=== PATIENT | male | born 1960 | race Caucasian/White ===

== ENCOUNTER 2016-06-12 18:31 | Inpatient (IN) | payer MEDICARE, BC ==
[2016-06-12] MEDS ORDERED: RX INFO: IV CONTRAST WAS GIVEN 1 EACH MISC MISCELLANE PRN (19:27)
--- NOTE | 2016-06-12 19:31 | ED ---
General Adult HPI - General Chief complaint: Dizziness Stated complaint: DIZZINESS Time Seen by Provider: 06/12/16 19:00 Source: patient, family, RN notes reviewed Mode of arrival: wheelchair Limitations: no limitations - History of Present Illness Initial comments: Patient is a pleasant 55-year-old male presenting to the emergency Department with vertigo. Patient has had vertigo for a while. Symptoms have not been bad up until the past couple weeks and have been severe. Symptoms have been intermittent. Sudden onset. Patient took 50 mg of meclizine prior to arrival and is now near symptom-free. Patient does have associated nausea. Patient had 2 severe episodes today. There is question of patient turned blue during 1 of him. There is also question of patient passed out. Family was told by a bystander that he passed out however patient does not believe that he did. Patient denies any chest pain or dyspnea. Patient did have some dyspnea with lying down at night only several weeks ago however this has now resolved. No confusion or weakness. No headaches. No visual changes. - Related Data Home Medications Medication Instructions Recorded Confirmed Aspirin EC [Ecotrin Low Dose] 81 mg PO DAILY 06/12/16 06/12/16 Lisinopril 40 mg PO DAILY 06/12/16 06/12/16 Lovastatin [Mevacor] 40 mg PO DAILY 06/12/16 06/12/16 Meclizine [Antivert] 25 mg PO TID 06/12/16 06/12/16 Multivitamins, Thera [Multivitamin] 1 tab PO DAILY 06/12/16 06/12/16 Naproxen [Naprosyn] 375 mg PO Q12HR 06/12/16 06/12/16 PARoxetine HCL [Paxil] 40 mg PO DAILY 06/12/16 06/12/16 Pantoprazole Sodium [Protonix] 40 mg PO DAILY 06/12/16 06/12/16 metFORMIN HCL [Glucophage] 500 mg PO BID 06/12/16 06/12/16 Allergies Allergy/AdvReac Type Severity Reaction Status Date / Time Sulfa (Sulfonamide Allergy Rash/Hives Verified 06/12/16 19:19 Antibiotics) Review of Systems ROS Statement: Those systems with pertinent positive or pertinent negative responses have been documented in the HPI. ROS Other: All systems not noted in ROS Statement are negative. Constitutional: Denies: fever Eyes: Denies: eye pain ENT: Denies: ear pain Respiratory: Denies: cough Cardiovascular: Denies: chest pain Endocrine: Denies: fatigue Gastrointestinal: Reports: nausea Genitourinary: Denies: dysuria Musculoskeletal: Denies: back pain Skin: Denies: rash Neurological: Reports: vertigo. Denies: headache, weakness, confusion Past Medical History Past Medical History: Diabetes Mellitus, GERD/Reflux, Hyperlipidemia, Hypertension History of Any Multi-Drug Resistant Organisms: None Reported Past Surgical History: Appendectomy Additional Past Surgical History / Comment(s): Vein stripping right leg Past Psychological History: No Psychological Hx Reported Smoking Status: Former smoker Past Alcohol Use History: None Reported Past Drug Use History: None Reported General Exam Limitations: no limitations General appearance: alert, in no apparent distress Head exam: Present: atraumatic Eye exam: Present: normal appearance, PERRL, EOMI. Absent: nystagmus ENT exam: Present: normal oropharynx Neck exam: Present: normal inspection Respiratory exam: Present: normal lung sounds bilaterally Cardiovascular Exam: Present: regular rate, normal rhythm Expanded Peripheral pulses: 2+: Radial (R), Radial (L), Dorsalis Pedis (R), Dorsalis Pedis (L) GI/Abdominal exam: Present: soft. Absent: tenderness Extremities exam: Present: normal inspection. Absent: pedal edema, calf tenderness Neurological exam: Present: alert, oriented X3, CN II-XII intact. Absent: motor sensory deficit Expanded Speech: Present: fluid speech Cranial nerves: EOM's Intact: Normal, Facial Sensation: Normal Cerebellar function: Finger to Nose: Normal Sensory exam: Upper Extremity Light Touch: Normal, Lower Extremity Light Touch: Normal Motor strength exam: RUE: 5, LUE: 5, RLE: 5, LLE: 5 Eye Response: (4) open spontaneously Motor Response: (6) obeys commands Verbal Response: (5) oriented Psychiatric exam: Present: normal affect, normal mood Skin exam: Absent: rash Course Vital Signs 06/12/16 18:37 Temperature 98.0 F Pulse Rate 60 Respiratory 18 Rate Blood Pressure 138/90 O2 Sat by Pulse 95 Oximetry EKG Findings - EKG Comments: EKG Findings:: Sinus bradycardia at 55. Normal intervals. Normal axis. Inferior Q waves. No acute ST change. Medical Decision Making - Medical Decision Making Patient reexamined and resting comfortably in bed. Patient is starting to get dizzy again somewhat. Patient and family updated on results and plan. Case was discussed in detail with Dr. vigil, who will admit for Dr. Quinones. - Lab Data Result diagrams: 06/12/16 19:31 06/12/16 19:31 Lab Results 06/12/16 06/12/16 06/12/16 Range/Units 19:31 19:31 19:31 WBC 9.0 (3.8-10.6) k/uL RBC 4.60 (4.30-5.90) m/uL Hgb 13.9 (13.0-17.5) gm/dL Hct 42.1 (39.0-53.0) % MCV 91.5 (80.0-100.0) fL MCH 30.1 (25.0-35.0) pg MCHC 32.9 (31.0-37.0) g/dL RDW 13.0 (11.5-15.5) % Plt Count 207 (150-450) k/uL Neutrophils % 76 % Lymphocytes % 14 % Monocytes % 6 % Eosinophils % 3 % Basophils % 1 % Neutrophils # 6.8 (1.3-7.7) k/uL Lymphocytes # 1.3 (1.0-4.8) k/uL Monocytes # 0.5 (0-1.0) k/uL Eosinophils # 0.2 (0-0.7) k/uL Basophils # 0.1 (0-0.2) k/uL PT (9.0-12.0) sec INR (<1.1) APTT (22.0-30.0) sec D-Dimer (<0.60) mg/L FEU Sodium 140 (137-145) mmol/L Potassium 4.3 (3.5-5.1) mmol/L Chloride 103 (98-107) mmol/L Carbon Dioxide 28 (22-30) mmol/L Anion Gap 9 mmol/L BUN 29 H (9-20) mg/dL Creatinine 0.84 (0.66-1.25) mg/dL Est GFR (MDRD) Af Amer >60 (>60 ml/min/1.73 sqM) Est GFR (MDRD) Non-Af >60 (>60 ml/min/1.73 sqM) Glucose 125 H (74-99) mg/dL Calcium 9.3 (8.4-10.2) mg/dL Magnesium 2.1 (1.6-2.3) mg/dL Total Bilirubin 0.6 (0.2-1.3) mg/dL AST 32 (17-59) U/L ALT 57 (21-72) U/L Alkaline Phosphatase 66 (38-126) U/L Total Creatine Kinase 215 H (55-170) U/L CK-MB (CK-2) 2.8 H* (0.0-2.4) ng/mL CK-MB (CK-2) Rel Index 1.3 Troponin I <0.012 (0.000-0.034) ng/mL NT-Pro-B Natriuret Pep pg/mL Total Protein 6.7 (6.3-8.2) g/dL Albumin 4.1 (3.5-5.0) g/dL 06/12/16 06/12/16 Range/Units 19:31 19:35 WBC (3.8-10.6) k/uL RBC (4.30-5.90) m/uL Hgb (13.0-17.5) gm/dL Hct (39.0-53.0) % MCV (80.0-100.0) fL MCH (25.0-35.0) pg MCHC (31.0-37.0) g/dL RDW (11.5-15.5) % Plt Count (150-450) k/uL Neutrophils % % Lymphocytes % % Monocytes % % Eosinophils % % Basophils % % Neutrophils # (1.3-7.7) k/uL Lymphocytes # (1.0-4.8) k/uL Monocytes # (0-1.0) k/uL Eosinophils # (0-0.7) k/uL Basophils # (0-0.2) k/uL PT 10.5 (9.0-12.0) sec INR 1.0 (<1.1) APTT 22.8 (22.0-30.0) sec D-Dimer 0.28 (<0.60) mg/L FEU Sodium (137-145) mmol/L Potassium (3.5-5.1) mmol/L Chloride (98-107) mmol/L Carbon Dioxide (22-30) mmol/L Anion Gap mmol/L BUN (9-20) mg/dL Creatinine (0.66-1.25) mg/dL Est GFR (MDRD) Af Amer (>60 ml/min/1.73 sqM) Est GFR (MDRD) Non-Af (>60 ml/min/1.73 sqM) Glucose (74-99) mg/dL Calcium (8.4-10.2) mg/dL Magnesium (1.6-2.3) mg/dL Total Bilirubin (0.2-1.3) mg/dL AST (17-59) U/L ALT (21-72) U/L Alkaline Phosphatase (38-126) U/L Total Creatine Kinase (55-170) U/L CK-MB (CK-2) (0.0-2.4) ng/mL CK-MB (CK-2) Rel Index Troponin I (0.000-0.034) ng/mL NT-Pro-B Natriuret Pep 27 pg/mL Total Protein (6.3-8.2) g/dL Albumin (3.5-5.0) g/dL - Radiology Data Radiology results: image reviewed (Computed tomography scan of the brain, CT angiogram of the brain, and chest x-ray no acute abnormality.) Disposition Clinical Impression: Syncope Disposition: ADMITTED IP TO THIS HOSP
[2016-06-12 19:40] LABS: Basophils # (A) 0.1 k/uL (0-0.2); Basophils % (A) 1 %; CH 31.5; CHCM 34.5; Eosinophils # (A) 0.2 k/uL (0-0.7); Eosinophils % (A) 3 %; HCT 42.1 % (39.0-53.0); HDW 2.54; HGB 13.9 gm/dL (13.0-17.5); Luc % (Auto) 1; Lymphocytes # (A) 1.3 k/uL (1.0-4.8); Lymphocytes % (A) 14 %; MCH 30.1 pg (25.0-35.0); MCHC 32.9 g/dL (31.0-37.0); MCV 91.5 fL (80.0-100.0); Monocytes # (A) 0.5 k/uL (0-1.0); Monocytes % (A) 6 %; Neutrophils # (A) 6.8 k/uL (1.3-7.7); Neutrophils % (A) 76 %; WBC (Perox) 9.47
[2016-06-12 19:49] LABS: ALT 57 U/L (21-72); AST 32 U/L (17-59); Alkaline Phosphatase 66 U/L (38-126); Anion Gap 9 mmol/L; Blood Urea Nitrogen 29 mg/dL (9-20); Calcium 9.3 mg/dL (8.4-10.2); Carbon Dioxide 28 mmol/L (22-30); Chloride 103 mmol/L (98-107); Glucose 125 mg/dL (74-99); Magnesium 2.1 mg/dL (1.6-2.3); Non-African American GFR(MDRD) >60 (>60 ml/min/1.73 sqM); Potassium 4.3 mmol/L (3.5-5.1); Sodium 140 mmol/L (137-145); Total Bilirubin 0.6 mg/dL (0.2-1.3); Total Protein 6.7 g/dL (6.3-8.2)
[2016-06-12 19:53] LABS: Creatine Kinase 215 U/L (55-170)
--- NOTE | 2016-06-12 19:56 | XR ---
EXAMINATION TYPE: XR chest 2V DATE OF EXAM: 06/12/2016 7:50 PM COMPARISON: NONE HISTORY: Dizziness and syncope TECHNIQUE: Frontal and lateral views of the chest are obtained. FINDINGS: EKG leads noted. There is no focal air space opacity, pleural effusion, or pneumothorax see n. The cardiac silhouette size is within normal limits. The osseous structures are intact. IMPRESSION: No acute cardiopulmonary process.
[2016-06-12 20:00] LABS: Partial Thromboplastin Time 22.8 sec (22.0-30.0); Prothrombin Time 10.5 sec (9.0-12.0)
[2016-06-12 20:05] LABS: Troponin I <0.012 ng/mL (0.000-0.034)
[2016-06-12 20:10] LABS: Creatine Kinase MB 2.8 ng/mL (0.0-2.4)
--- NOTE | 2016-06-12 21:10 | CT ---
EXAMINATION TYPE: CT brain wo con DATE OF EXAM: 06/12/2016 9:02 PM COMPARISON: NONE HISTORY: dizziness for 2-[address] DLP: 1628.5 mGycm Automated exposure control for dose reduction was used. FINDINGS: There is no acute intracranial hemorrhage, mass effect, or midline shift identified. The ventricles and sulci are within normal limits in size. The globes are intact and the visualized sinuses are brea ar. IMPRESSION: No acute intracranial hemorrhage, mass effect, or midline shift is seen.
--- NOTE | 2016-06-12 21:14 | CT ---
EXAMINATION TYPE: CT ANGIO HEAD NECK DATE OF EXAM: 06/12/2016 9:01 PM COMPARISON: NONE HISTORY: dizziness for 2-[address] DLP: 1628.5 mGycm. Automated exposure control for dose reduction was used. TECHNIQUE: Performed with IV Contrast, patient injected with 65 mL of Omnipaque 350. FINDINGS: Neck CTA shows normal carotid and vertebral artery appearance. Venous structures are unremarkable. Th e skeletal structures and soft tissues are without focal findings. The brain CTA shows unremarkable arterial and venous structures. No incidental findings. IMPRESSION: NEGATIVE EXAMINATIONS.
[2016-06-12] MEDS ORDERED: NALOXONE 0.4 MG/ML 1 ML VIAL IV PRN (21:24)
[2016-06-12] MEDS ORDERED: MECLIZINE 25 MG TAB PO PRN (21:26)
[2016-06-12] MEDS: SODIUM CHLORIDE 0.9% 1,000 ML IV SCH (22:14)
[2016-06-12 22:34] LABS: Appearance,Urine Clear (Clear); Bilirubin,Urine Negative (Negative); Glucose,Urine (UA) Negative (Negative); Ketones,Urine Negative (Negative); Leukocyte Esterase,Urine Negative (Negative); Nitrite,Urine Negative (Negative); PH, Urine 6.5 (5.0-8.0); Protein,Urine Negative (Negative); Specific Gravity,Urine 1.019 (1.001-1.035); UA Billing (MACRO vs. MICRO) CHEM
[2016-06-12] MEDS ORDERED: METOCLOPRAMIDE 5 MG/ML 2 ML VIAL IVP PRN (23:07)
[2016-06-13] MEDS ORDERED: METOCLOPRAMIDE 5 MG/ML 2 ML VIAL IVP SCH
[2016-06-13 06:27] LABS: Glucose,Whole Blood 120 mg/dL (75-99)
[2016-06-13] MEDS: INSULIN LISPRO (humaLOG) 300 UNIT/3 ML VIAL SQ SCH ×4 (06:33→22:01)
[2016-06-13] MEDS: metFORMIN 500 MG TAB PO SCH ×2 (06:50→17:22)
[2016-06-13 06:53] LABS: Glucose,Whole Blood 106 mg/dL (75-99)
[2016-06-13] MEDS: PANTOPRAZOLE 40 MG TABLET PO SCH (06:53)
[2016-06-13] MEDS: ASPIRIN 81 MG CHEW PO SCH (08:54)
[2016-06-13] MEDS: LISINOPRIL 20 MG TAB PO SCH (08:54)
[2016-06-13] MEDS: ATORVASTATIN 10 MG TAB PO SCH (08:54)
[2016-06-13] MEDS: MULTIVITAMINS, THERA 1 EACH TAB PO SCH (08:55)
[2016-06-13] MEDS: NAPROXEN 250 MG TAB PO SCH ×2 (08:55→22:01)
[2016-06-13 10:54] LABS: Hemoglobin A1C 6.4 % (4.2-6.1)
[2016-06-13 11:47] LABS: Glucose,Whole Blood 94 mg/dL (75-99)
[2016-06-13] MEDS: PARoxetine 20 MG TAB PO SCH (12:03)
--- NOTE | 2016-06-13 16:15 | P.CNNES ---
History of Present Illness Consult date: 06/13/16 Reason for Consult: Patient with syncope and vertigo. History of Present Illness: This patient is a 55-year-old right-handed white male who apparently was admitted through the emergency room today with symptoms of syncope and vertigo. According to his who provided medical history today who was at bedside yesterday he was out helping a neighbor. Apparently he was in the hallway when he apparently fell to his knees. The neighbor called the and said that she was very concerned as he was turning blue and seem to be very confused. The patient was brought by vehicle to his home and apparently felt dizzy and nauseated. He did take 50 mg of meclizine and his symptoms did improve. He does continue to have some episodic vertigo however. When questioned about the possibility of cyanosis the patient apparently was blue in complexion for about a minute in time. Is not clear whether he actually passed out when he went down on his knees. He denied any headache at the time but did complain of severe chest pressure. He felt as if someone was standing on his chest. He did have some shortness of breath and dyspnea at that time as well. The patient has a long-standing history of intermittent vertigo. He also has a known history of cerebellar atrophy which is felt to be long-term effect from his long history of alcohol use in the past. Patient has not had any recent cardiac evaluation but was scheduled to undergo a series of testing at the cardiology clinic early next week. Apparently he was complaining of angina and chest pain and was seen in the cardiology clinic by Dr. Ulloa. Overall series of testing was recommended for him and it was to begin next week. Cardiology has been consult today and we will await their further recommendations. Patient has no previous history of seizure and/or convulsions. He has been using the Antivert as needed for symptomatic management of the vertigo. In the ER he was sent for computed tomography scan of the brain which revealed no acute intracranial abnormality. He is now been admitted and neurology has been consulted for further evaluation and recommendations. Review of Systems Constitutional: Denies chills, Denies fever Eyes: denies blurred vision, denies pain Ears, nose, mouth and throat: Denies headache, Denies sore throat Cardiovascular: Denies chest pain, Denies shortness of breath Respiratory: Denies cough Gastrointestinal: Denies abdominal pain, Denies diarrhea, Denies nausea, Denies vomiting Musculoskeletal: Denies myalgias Integumentary: Denies pruritus, Denies rash Neurological: Reports confusion, Reports gait dysfunction, Reports syncope, Reports vertigo, Denies numbness, Denies weakness Psychiatric: Denies anxiety, Denies depression Endocrine: Denies fatigue, Denies weight change Past Medical History Past Medical History: Diabetes Mellitus, GERD/Reflux, Hyperlipidemia, Hypertension Additional Past Medical History / Comment(s): Dizziness History of Any Multi-Drug Resistant Organisms: None Reported Past Surgical History: Appendectomy Additional Past Surgical History / Comment(s): Vein stripping right leg, hemroidectomy Past Anesthesia/Blood Transfusion Reactions: No Reported Reaction Past Psychological History: No Psychological Hx Reported Smoking Status: Former smoker Past Alcohol Use History: None Reported Additional Past Alcohol Use History / Comment(s): Pt states he chews tobacco occasionaly and is interested in quitting. Patient also states that he used to drink heavily, however he has not had a drink in a long time. Past Drug Use History: None Reported - Past Family History Mother History Unknown: Yes Family Medical History: No Reported History Father Family Medical History: Cancer Additional Family Medical History / Comment(s): from Lymphoma in 2011 Medications and Allergies Home Medications Medication Instructions Recorded Confirmed Type Aspirin EC [Ecotrin Low Dose] 81 mg PO DAILY 06/12/16 06/12/16 History Lisinopril 40 mg PO DAILY 06/12/16 06/12/16 History Lovastatin [Mevacor] 40 mg PO DAILY 06/12/16 06/12/16 History Meclizine [Antivert] 25 mg PO TID 06/12/16 06/12/16 History Multivitamins, Thera [Multivitamin] 1 tab PO DAILY 06/12/16 06/12/16 History Naproxen [Naprosyn] 375 mg PO Q12HR 06/12/16 06/12/16 History PARoxetine HCL [Paxil] 40 mg PO DAILY 06/12/16 06/12/16 History Pantoprazole Sodium [Protonix] 40 mg PO DAILY 06/12/16 06/12/16 History metFORMIN HCL [Glucophage] 500 mg PO BID 06/12/16 06/12/16 History Allergies Allergy/AdvReac Type Severity Reaction Status Date / Time Sulfa (Sulfonamide Allergy Rash/Hives Verified 06/12/16 19:19 Antibiotics) adhesive AdvReac Rash/Hives Verified 06/12/16 22:53 Physical Examination - Vital Signs Vital Signs: Vital Signs Temp Pulse Pulse Pulse Pulse Pulse Resp 06/13/16 08:00 97.1 F L 67 06/13/16 03:17 97.7 F 54 L 16 06/13/16 00:00 96.2 F L 58 L 64 74 57 L 18 06/12/16 21:39 63 16 BP BP BP BP BP Pulse Ox 06/13/16 08:00 146/86 93 L 06/13/16 03:17 114/70 96 06/13/16 00:00 135/64 155/95 115/81 94 L 06/12/16 21:39 130/71 95 Intake and Output 06/12/16 06/13/16 06/13/16 22:59 06:59 14:59 Intake Total 250 360 Balance 250 360 Intake: IV 10 0.9% ns flush 10 ML 10 Oral 240 360 Other: Weight 122.7 kg - Constitutional General appearance: average body habitus, cooperative - EENT EENT: mucous membranes moist - Respiratory Respiratory: lungs clear, normal breath sounds - Cardiovascular Cardiovascular: regular rate, normal S1, normal S2 Extremities: no peripheral edema bilaterally - Gastrointestinal Gastrointestinal: normoactive bowel sounds - Integumentary Integumentary: normal - Neurologic Cranial nerve examination: PERRL, EOMI, VFF, V1/V2/V3 grossly intact, face symmetric, tongue midline, intact gag reflex, intact corneal reflex, normal palatal elevation Speech examination: intact Sensorimotor examination: intact Detailed motor examination: grossly full strength in all extremities Motor examination - right side: 5/5: biceps, triceps, wrist flexion, wrist extension, risk control manager, hip flexors, knee extensors, dorsiflexion, toe extension (EHL) , plantarflexion Motor examination - left side: 5/5: biceps, triceps, wrist flexion, wrist extension, risk control manager, hip flexors, knee extensors, dorsiflexion, toe extension (EHL) , plantarflexion Detailed sensory examination: intact Reflex and gait examination: intact Reflexes: 1+: ankle, bicep, knee, tricep - Musculoskeletal Musculoskeletal: no pain - Psychiatric Psychiatric: mood/affect appropriate, cooperative Results - Laboratory Findings CBC and BMP: 06/12/16 19:31 06/12/16 19:31 Abnormal Lab Findings: Abnormal Labs 06/13/16 06:26 POC Glucose (mg/dL) 120 H Assessment and Plan (1) Vasovagal syncope Status: Acute Code(s): R55 - SYNCOPE AND COLLAPSE (2) Benign paroxysmal positional vertigo Status: Acute Code(s): H81.10 - BENIGN PAROXYSMAL VERTIGO, UNSPECIFIED EAR (3) Vascular dementia Status: Acute Code(s): F01.50 - VASCULAR DEMENTIA WITHOUT BEHAVIORAL DISTURBANCE (4) Cerebellar atrophy Status: Acute Code(s): G31.9 - DEGENERATIVE DISEASE OF NERVOUS SYSTEM, UNSPECIFIED Plan: This patient is a 55-year-old male who was admitted to Hospital with symptoms of near syncope and cyanosis. Apparently he was helping a neighbor close to the home and he had fallen to his knees and became blue in complexion. Neighbor was very concerned that she was not sure why he was turning color. Apparently he was having some shortness of breath and chest pain at that time. Patient was taken to his home by a vehicle. He took 2 Antivert pills as he was feeling nauseated and dizzy. This did relieve his symptoms. He was then advised to go to the emergency room where he was further evaluated. He was seen in the ER by Dr. Cole. He was sent for computed tomography scan of the brain which was reported negative for any acute changes of stroke or hemorrhage. He also underwent a CTA angiogram which was negative for any acute changes. He was subsequent admitted to hospital for further evaluation. The is at bedside and provide medical history. This is the first time his has noted that he complained of severe chest pain and pressure. This also the first time that he has turned blue in complexion. This is never happened before. For this reason she was very concerned. His neurological examination at this time is nonfocal. His clinical history suggesting vasovagal syncope. We would recommend a complete cardiology consultation with further workup as recommended by cardiology. He will continue close neurological follow-up for the patient. His overall prognosis at this time remains very guarded. Time with Patient: Greater than 30
[2016-06-13 17:04] LABS: Glucose,Whole Blood 121 mg/dL (75-99)
--- NOTE | 2016-06-13 17:15 | HP ---
DATE OF ADMISSION: 06/12/2016 PRESENTING COMPLAINT: Dizzy. HISTORY OF PRESENTING COMPLAINT: This is a 55-year-old patient of Dr. Quinones whose chronic stable medical conditions include diabetes mellitus type 2 with GERD, hyperlipidemia, hypertension, the patient states that patient has history of vertigo for over 20 years, presented occasionally. Patient was over at his neighbor's when the patient suddenly became dizzy and everything started spinning, the patient became nauseated and became cyanosed. This must have lasted for about an hour or so. Symptoms then completely then resolved. Recently the patient had some chest pressure and had gone to see Dr. Quinones for the same. Otherwise, the patient rather active and does not get any chest pain or palpitations with getting about. The patient denies any ringing in the ears or ear blockage. Denies change in vision, focal weakness. Tongue biting or urinary incontinence. No exertional chest pressure is present. REVIEW OF SYSTEMS: CONSTITUTIONAL: None. HEENT: None. RESPIRATORY: None. CARDIOVASCULAR: As above. GASTROINTESTINAL: Heartburn. GENITOURINARY: None. MUSCULOSKELETAL: None. Dermatological: None. HEMATOLOGICAL: None. LYMPHATIC: None. NEUROLOGICAL: As above. No focal ( ). PSYCHIATRY: None. PAST MEDICAL HISTORY: Diabetes mellitus type 2, GERD, hyperlipidemia, hypertension. PAST SURGICAL HISTORY: Appendectomy, vein stripping, right leg, hemorrhoidectomy. SOCIAL HISTORY: The patient does chew tobacco, used to drink heavily in the past. . Family history of lymphoma. HOME MEDICATIONS: 1. Glucophage 500 mg p.o. b.i.d. 2. Protonix 40 mg p.o. daily. 3. Paxil 40 mg p.o. daily. 4. Naproxen 325 p.o. q.12. 5. Multivitamin 1 tablet p.o. daily. 6. Antivert 25 mg p.o. t.i.d. 7. Mevacor 40 mg p.o. daily. 8. Lisinopril 40 mg daily. 9. Aspirin 81 mg p.o. daily. ALLERGIES TO SULFA AND ADHESIVE. On examination, Vital signs on presentation: Temperature 98, pulse 60, respiration 18, blood pressure 138/90, pulse ox 95% on room air. GENERAL APPEARANCE: Well built, BMI of 36, sitting up, not in distress. EYES: Pupils equal. Conjunctivae normal. HEENT: Oral cavity normal. NECK: JVD not raised. Mass not palpable. RESPIRATORY: Effort normal. LUNGS: Clear. CARDIOVASCULAR: First and second sounds normal. No edema. ABDOMEN: Soft, nontender. Liver and spleen not palpable. LYMPHATIC: No lymph nodes palpable in neck and axilla. PSYCHIATRY: Alert and oriented x3. Mood and affect normal. NEUROLOGICAL: Pupils equal. Cranial nerves grossly intact. Power and sensation grossly intact. INVESTIGATIONS: White count 9. Hemoglobin 13.9, platelets 227. Potassium 4.3, BUN 10, creatinine 0.84. Troponin is negative. UA negative. CT scan of the brain followed by CT angiogram of the brain nil acute reported. Telemetry shows sinus bradycardia, Q waves in the inferior leads. ASSESSMENT: 1. This is a patient who presented with severe vertigo, nausea, ( ) what could be cyanotic. This could be an episode of arrhythmia, that could be present. The patient has had also some chest pain recently at rest, ( ) with exercise does not have any new repetition of symptoms, does not have any persistent ear symptoms. Cerebellar transient ischemic attack is in the differential. 2. Diabetes mellitus, type II. 3. Gastroesophageal reflux disease. 4. Hyperlipidemia. 5. Essential hypertension. 6. Obesity, body mass index of 36.7. PLAN: Patient is being put on aspirin. Home medications are resumed. Patient will need Lipitor. Cardiology has been consulted. Patient is put on telemetry, look for arrhythmias. Also get a neurological opinion. Care was discussed with the patient and in detail.
[2016-06-13] MEDS: ENOXAPARIN 40 MG/0.4 ML SYRINGE SQ SCH (17:23)
--- NOTE | 2016-06-13 20:05 | US ---
EXAMINATION TYPE: US carotid duplex BILAT DATE OF EXAM: 06/13/2016 7:05 PM COMPARISON: CT angio Head and Neck CLINICAL HISTORY: . Dizziness x many years; diabetic; HTN; elevated cholesterol EXAM MEASUREMENTS: RIGHT: Peak Systolic Velocity (PSV) cm/sec ----- Right CCA: 46.1 ----- Right ICA: 50.5 ----- Right ECA: 63.7 ICA/CCA ratio: 1.1 RIGHT: End Diastole cm/sec ----- Right CCA: 12.0 ----- Right ICA: 8.7 ----- Right ECA: 9.8 LEFT: Peak Systolic Velocity (PSV) cm/sec ----- Left CCA: 67.7 ----- Left ICA: 48.8 ----- Left ECA: 71.5 ICA/CCA ratio: 0.7 LEFT: End Diastole cm/sec ----- Left CCA: 14.4 ----- Left ICA: 17.4 ----- Left ECA: `13.0 VERTEBRALS (direction of flow): Right Vertebral: Antegrade Left Vertebral: Antegrade TECHNOLOGIST IMPRESSION: very mild intimal wall changes are noted at bilateral carotid bifurcation a nd PSV is within normal limits; incidental findings of heterogeneous thyroid gland is noted bilateral ly. IMPRESSION: There is antegrade flow in the vertebral arteries. The images and measurements suggest 1 0-15% stenosis in both internal carotid arteries. Criteria for Assigning % of Stenosis / Diameter reduction (Estimation based on the indirect measurements of the internal carotid artery velocities (ICA PSV). 1. Normal (no stenosis)=ICA PSV < 125 cm/s: ratio < 2.0: ICA EDV<40 cm/s. 2. Less than 50% stenosis=ICA PSV < 125 cm/s: ratio < 2.0: ICA EDV<40 cm/s. 3. 50 to 69% stenosis=ICA PSV of 125 to 230 cm/s: ration 2.0 ? 4.0: ICA EDV 40-100 cm/s. 4. Greater than 70% stenosis to near occlusion= ICA PSV > 230 cm/s: ratio > 4.0: ICA EDV > 100 cm/s. 5. Near occlusion= ICA PSV velocities may be low or undetectable: variable ratio and ICA EDV. 6. Total occlusion=unable to detect flow.
[2016-06-13 21:52] LABS: Glucose,Whole Blood 83 mg/dL (75-99)
[2016-06-13] MEDS: SODIUM CHLORIDE 0.9% 1,000 ML IV SCH (22:04)
[2016-06-14 06:25] LABS: Glucose,Whole Blood 112 mg/dL (75-99)
[2016-06-14] MEDS: INSULIN LISPRO (humaLOG) 300 UNIT/3 ML VIAL SQ SCH ×4 (06:33→21:48)
[2016-06-14] MEDS: PANTOPRAZOLE 40 MG TABLET PO SCH (06:35)
[2016-06-14] MEDS: metFORMIN 500 MG TAB PO SCH ×2 (06:35→18:26)
[2016-06-14] MEDS: MULTIVITAMINS, THERA 1 EACH TAB PO SCH (09:21)
[2016-06-14] MEDS: ENOXAPARIN 40 MG/0.4 ML SYRINGE SQ SCH (09:21)
[2016-06-14] MEDS: NAPROXEN 250 MG TAB PO SCH ×2 (09:21→20:10)
[2016-06-14] MEDS: ASPIRIN 81 MG CHEW PO SCH (09:22)
[2016-06-14] MEDS: ATORVASTATIN 10 MG TAB PO SCH (09:22)
[2016-06-14] MEDS: LISINOPRIL 20 MG TAB PO SCH (09:22)
[2016-06-14] MEDS: PARoxetine 20 MG TAB PO SCH (09:22)
--- NOTE | 2016-06-14 11:01 | P.CRDCN ---
History of Present Illness Consult date: 06/13/16 Reason for Consult (text): Syncope Chief complaint: dizziness History of present illness: This is a pleasant 55-year-old gentleman who is a new patient to Dr. Ulloa, just seen yesterday. Has a known history of hypertension, hyperlipidemia, vertigo and diabetes mellitus. Patient has recently noticed an increase in his dizziness and yesterday was over a neighbor's house developed complaints of dizziness and the neighbor noticed patient turned blue twice with loss of consciousness during second episode. This is much different than his usual episodes of dizziness. He should also has history of orthopnea that lasted about a week upon presentation patient underwent chest x-ray that was negative CT of the brain and CT of the chest were both negative. EKG showed sinus rhythm with Q waves in leads 3 and aVF. Laboratory values showed BUN 29 creatinine 0.84 and troponins less than 0.0123. The patient was seen and examined by Dr. Ulloa yesterday in the office after being referred by his primary care physician for further evaluation of dizziness. He underwent an echocardiogram at that time which showed normal LV systolic function with an ejection fraction of 55% with an LV filling pattern suggestive of diastolic dysfunction. Upon examination today, patient is resting comfortably in bed. He denies any further complaints of dizziness or syncope. He denies complaints of chest discomfort, palpitations, nausea or vomiting or edema. Describing his episodes of orthopnea, patient described as feeling as if someone was sitting on his chest making it difficult to breathe whenever he lay down at night, relieved with sitting up. This went on for about a week and resolved on its own. Past Medical History Past Medical History: Diabetes Mellitus, GERD/Reflux, Hyperlipidemia, Hypertension Additional Past Medical History / Comment(s): Dizziness History of Any Multi-Drug Resistant Organisms: None Reported Past Surgical History: Appendectomy Additional Past Surgical History / Comment(s): Vein stripping right leg, hemroidectomy Past Anesthesia/Blood Transfusion Reactions: No Reported Reaction Past Psychological History: No Psychological Hx Reported Smoking Status: Former smoker Past Alcohol Use History: None Reported Additional Past Alcohol Use History / Comment(s): Pt states he chews tobacco occasionaly and is interested in quitting. Patient also states that he used to drink heavily, however he has not had a drink in a long time. Past Drug Use History: None Reported - Past Family History Mother History Unknown: Yes Family Medical History: No Reported History Father Family Medical History: Cancer Additional Family Medical History / Comment(s): from Lymphoma in 2011 Medications and Allergies Home Medications Medication Instructions Recorded Confirmed Type Aspirin EC [Ecotrin Low Dose] 81 mg PO DAILY 06/12/16 06/12/16 History Lisinopril 40 mg PO DAILY 06/12/16 06/12/16 History Lovastatin [Mevacor] 40 mg PO DAILY 06/12/16 06/12/16 History Meclizine [Antivert] 25 mg PO TID 06/12/16 06/12/16 History Multivitamins, Thera [Multivitamin] 1 tab PO DAILY 06/12/16 06/12/16 History Naproxen [Naprosyn] 375 mg PO Q12HR 06/12/16 06/12/16 History PARoxetine HCL [Paxil] 40 mg PO DAILY 06/12/16 06/12/16 History Pantoprazole Sodium [Protonix] 40 mg PO DAILY 06/12/16 06/12/16 History metFORMIN HCL [Glucophage] 500 mg PO BID 06/12/16 06/12/16 History Allergies Allergy/AdvReac Type Severity Reaction Status Date / Time Sulfa (Sulfonamide Allergy Rash/Hives Verified 06/12/16 19:19 Antibiotics) adhesive AdvReac Rash/Hives Verified 06/12/16 22:53 Physical Exam Vitals: Vital Signs Temp Pulse Pulse Pulse Pulse Pulse Resp 06/13/16 08:00 97.1 F L 67 06/13/16 03:17 97.7 F 54 L 16 06/13/16 00:00 96.2 F L 58 L 64 74 57 L 18 06/12/16 21:39 63 16 BP BP BP BP BP Pulse Ox 06/13/16 08:00 146/86 93 L 06/13/16 03:17 114/70 96 06/13/16 00:00 135/64 155/95 115/81 94 L 06/12/16 21:39 130/71 95 Intake and Output 06/12/16 06/13/16 06/13/16 22:59 06:59 14:59 Intake Total 250 360 Balance 250 360 Intake: IV 10 0.9% ns flush 10 ML 10 Oral 240 360 Other: Weight 122.7 kg PHYSICAL EXAMINATION: HEENT: Head is atraumatic, normocephalic. Pupils equal, round. Neck is supple. There is no elevated jugular venous pressure. HEART EXAMINATION: Heart sounds regular, S1 and S2 normal. No murmur or gallop heard. CHEST EXAMINATION: Lungs are clear to auscultation and precussion. No chest wall tenderness is noted on palpation or with deep breathing. ABDOMEN: Soft, obese, nontender. Bowel sounds are heard. No organomegaly noted. EXTREMITIES: 2+ peripheral pulses with no evidence of peripheral edema and no calf tenderness noted. Variscositis noted to right lower extremity. . NEUROLOGIC patient is awake, alert and oriented x3. Results 06/12/16 19:31 06/12/16 19:31 Cardiac Enzymes 06/13/16 06/13/16 Range/Units 01:39 06:16 Troponin I <0.012 <0.012 (0.000-0.034) ng/mL Current Medications Generic Name Dose Route Start Last Admin Trade Name Freq PRN Reason Stop Dose Admin Aspirin 81 mg 06/13/16 09:00 06/13/16 08:54 Aspirin PO 81 mg DAILY SANKET Administration Atorvastatin Calcium 10 mg 06/13/16 09:00 06/13/16 08:54 Lipitor PO 10 mg DAILY SANKET Administration Sodium Chloride 1,000 mls @ 20 mls/hr 06/12/16 21:30 06/12/16 22:14 Saline 0.9% IV Not Given .Q24H SANKET Insulin Human Lispro 0 unit 06/13/16 07:30 06/13/16 06:33 Humalog SQ Not Given ACHS [facility] Protocol Lisinopril 40 mg 06/13/16 09:00 06/13/16 08:54 Zestril PO 40 mg DAILY SANKET Administration Meclizine HCl 25 mg 06/12/16 21:26 Antivert PO QID PRN Vertigo Metformin HCl 500 mg 06/13/16 07:30 06/13/16 06:50 Glucophage PO Not Given AC-BID SANKET Metoclopramide HCl 10 mg 06/12/16 23:07 Reglan IVP Q6HR PRN Nausea Miscellaneous Information 1 each 06/12/16 19:27 Rx Info: Iv Contrast Was Given MISCELLANE 06/14/16 19:27 DAILY PRN Per Protocol Multivitamins 1 each 06/13/16 09:00 06/13/16 08:55 Theragran PO 1 each DAILY SANKET Administration Naloxone HCl 0.2 mg 06/12/16 21:24 Narcan IV Q2M PRN Opioid Reversal Naproxen 500 mg 06/13/16 09:00 06/13/16 08:55 Naprosyn PO 500 mg Q12HR SANKET Administration Pantoprazole Sodium 40 mg 06/13/16 07:30 06/13/16 06:53 Protonix PO 40 mg AC-BRKFST SANKET Administration Paroxetine HCl 40 mg 06/13/16 09:00 Paxil PO DAILY SANKET Intake and Output 06/12/16 06/13/16 06/13/16 22:59 06:59 14:59 Intake Total 250 360 Balance 250 360 Intake: IV 10 0.9% ns flush 10 ML 10 Oral 240 360 Other: Weight 122.7 kg EKG Interpretations (text) Sinus bradycardia with possible prior inferior infarct, q waves in leads III and aVf and nonspecific ST-T waves changes inferior leads. Assessment and Plan Plan: Assessment and plan #1 diabetes mellitus #2 hyperlipidemia #3 hypertension #4 newly diagnosed diastolic dysfunction #5 obesity #6 EKG changes suspicious for possible RCA lesion Cardiology standpoint, we will monitor the patient for another 24 hours. The patient will need further cardiac workup to include stress testing which depending on patient's clinical status may be done Thursday or as an outpatient next week in the office. PRINCIPAL CONSULTING ENGINEER note has been reviewed, I agree with a documented findings and plan of care. Patient was seen and examined.
--- NOTE | 2016-06-14 11:14 | P.PN ---
Subjective Principal diagnosis: Dizziness and lightheadedness This is a pleasant 55-year-old gentleman with a past medical history significant for diabetes, hypertension, and dyslipidemia, who was seen recently in the office by Dr. Dr. Ulloa and the patient was scheduled to undergo a stress test. This time he was at home when he felt dizzy and lightheaded. He did not have any symptoms of chest pain or chest discomfort but he was turned blue according to his . The patient underwent a cardiac workup in the office where he had an echo showed normal LV function. In the hospital he had an EKG and cardiac enzymes and both came in to be unremarkable. On follow-up with him today, he stated that he was up and around and he was completely asymptomatic. The is quite concerned about sending the patient home. I will obtain a stress test this coming Thursday we will schedule the patient to undergo an exercise Cardiolite. He underwent carotid duplex study which came in to be unremarkable Objective - Vital Signs Vital signs: Vital Signs Temp 97.8 F 06/14/16 08:00 Pulse 56 L 06/14/16 08:00 Resp 18 06/14/16 08:00 BP 132/97 06/14/16 08:00 Pulse Ox 95 06/14/16 08:00 Intake & Output 06/13/16 06/14/16 06/14/16 18:59 06:59 18:59 Intake Total 360 300 Balance 360 300 Weight 121.6 kg Intake: IV 0 0.9% ns flush 10 ML 0 Oral 360 300 Other: Voiding Method Toilet # Voids 2 - Constitutional General appearance: Present: no acute distress - Respiratory Respiratory: bilateral: CTA - Cardiovascular Rhythm: regular Heart sounds: normal: S1, S2 - Labs CBC & Chem 7: 06/12/16 19:31 06/12/16 19:31 Labs: Abnormal Lab Results - Last 24 Hours (Table) 06/13/16 06/13/16 06/14/16 Range/Units 01:39 16:53 06:23 POC Glucose (mg/dL) 121 H 112 H (75-99) mg/dL Hemoglobin A1c 6.4 H (4.2-6.1) % Assessment and Plan Plan: Assessment #1 diabetes mellitus #2 hypertension #3 obesity #4 presyncope Plan #1 was scheduled the patient to undergo stress test this coming Thursday #2 the carotid duplex study showed no severe disease #3 follow-up with the patient
[2016-06-14 11:38] LABS: Glucose,Whole Blood 102 mg/dL (75-99)
--- NOTE | 2016-06-14 14:40 | P.PN ---
Subjective This patient is a 55-year-old right-handed white male was made at the hospital with episode of near syncope and vasovagal response. Patient had an episode in which he turned blue according to his and became very lightheaded. He was seen by cardiology for further evaluation. He is being scheduled for a stress test on Thursday. He underwent a carotid Doppler ultrasound which came back negative for any significant carotid artery stenosis. Patient has been resting comfortably in his had no further spells. Patient did undergo a cardiac workup recently which included echocardiogram which apparently showed normal LV function. He has been up and feeling well today with no further recurrence of lightheadedness or dizziness in the room. We will await further recommendations from cardiology. We will continue close neurological follow-up for the patient. He was unable to have EEG today as a technologist was not available. This is been tentatively scheduled for Thursday as well. His overall prognosis at this time remains guarded. Objective - Vital Signs Vital signs: Vital Signs Temp 97.8 F 06/14/16 08:00 Pulse 56 L 06/14/16 08:00 Resp 18 06/14/16 08:00 BP 132/97 06/14/16 08:00 Pulse Ox 95 06/14/16 08:00 Intake & Output 06/13/16 06/14/16 06/14/16 18:59 06:59 18:59 Intake Total 360 300 Balance 360 300 Weight 121.6 kg Intake: IV 0 0.9% ns flush 10 ML 0 Oral 360 300 Other: Voiding Method Toilet # Voids 2 - Exam Physical examination: PHYSICAL EXAMINATION: Patient is resting comfortably in bed. VITAL SIGNS: Blood pressure is [132/97]. Heart rate is [60]. Respiration is [18] . Temperature is [97.8]. HEENT: Head is atraumatic, neck is supple, there were no carotid bruits. CHEST: Lungs are clear to auscultation and percussion. CARDIAC: S1, S2 normal rate and rhythm. There is no murmur. ABDOMEN: Soft and nontender. Bowel sounds are present. EXTREMITIES: There is no pedal edema. Peripheral pulses are present. Neurological examination: Patient's neurological examination is unchanged from yesterday. - Labs CBC & Chem 7: 06/12/16 19:31 06/12/16 19:31 Labs: Abnormal Lab Results - Last 24 Hours (Table) 06/13/16 06/14/16 06/14/16 Range/Units 16:53 06:23 11:37 POC Glucose (mg/dL) 121 H 112 H 102 H (75-99) mg/dL Assessment and Plan (1) Vasovagal syncope Status: Acute Code(s): R55 - SYNCOPE AND COLLAPSE (2) Benign paroxysmal positional vertigo Status: Acute Code(s): H81.10 - BENIGN PAROXYSMAL VERTIGO, UNSPECIFIED EAR (3) Vascular dementia Status: Acute Code(s): F01.50 - VASCULAR DEMENTIA WITHOUT BEHAVIORAL DISTURBANCE (4) Cerebellar atrophy Status: Acute Code(s): G31.9 - DEGENERATIVE DISEASE OF NERVOUS SYSTEM, UNSPECIFIED Plan: This patient is a 55-year-old male being evaluated for near syncope. He had an episode of near syncope with mild discoloration and possible cyanosis. He has been seen by cardiology for possibility of vasovagal syncope cardiogenic syncope. He is scheduled to undergo a stress test on Thursday for further evaluation. He is scheduled to undergo EEG testing on Thursday to rule out further evaluation of syncope versus seizure. His neurological examination today is nonfocal. He has had no further episodes of syncope or lightheadedness. Cardiology is following his condition closely as well. Patient has had no further episodes since admission to the hospital. We will continue close neurological follow-up for this patient. His overall prognosis at this time remains guarded. Case was discussed at length with the patient and his at bedside. All their questions were answered. We will continue our current neurological assessment and recommendations.
[2016-06-14 16:23] LABS: Glucose,Whole Blood 97 mg/dL (75-99)
--- NOTE | 2016-06-14 19:52 | PN ---
DATE OF SERVICE: 06/14/2016 PRESENTING COMPLAINT: Dizzy and cyanosed. INTERVAL HISTORY: This patient was admitted with an episode of severe dizziness and getting cyanosed. Patient is going to have an EEG and get a stress test on Thursday. is at the bedside. Patient has had no further episodes. Review of systems done for constitutional, cardiovascular, GI, pulmonary; relevant findings as above. Current medications are reviewed On examination, temperature 97.8, pulse 60, respirations 18, blood pressure 113/97, pulse ox 95% on room air. GENERAL APPEARANCE: Sitting in bed, comfortable. EYES: Pupils equal. Conjunctivae normal. NECK: JVD not raised. Mass not palpable. RESPIRATORY: Effort normal. LUNGS: Fair air entry. CARDIOVASCULAR: First and second sounds normal. No edema. ABDOMEN: Soft, nontender. Liver and spleen not palpable. PSYCHIATRY: Alert and oriented x3. Mood and affect normal. INVESTIGATIONS: Carotid Doppler: No critical stenosis. ASSESSMENT: 1. Episode of severe impetigo with cyanosis, could be underlying arrhythmia, awaiting a stress test. 2. Diabetes mellitus type 2. 3. Gastroesophageal reflux disease. 4. Hyperlipidemia. 5. Essential hypertension. 6. Obesity, body mass index of 36.7. PLAN: Care was discussed with the patient and . Await stress test.
[2016-06-14] MEDS: SODIUM CHLORIDE 0.9% 1,000 ML IV SCH (20:10)
[2016-06-14 21:18] LABS: Glucose,Whole Blood 124 mg/dL (75-99)
[2016-06-15 06:08] LABS: Glucose,Whole Blood 107 mg/dL (75-99)
[2016-06-15] MEDS: INSULIN LISPRO (humaLOG) 300 UNIT/3 ML VIAL SQ SCH ×4 (06:27→20:34)
[2016-06-15] MEDS: metFORMIN 500 MG TAB PO SCH ×2 (06:48→17:14)
[2016-06-15] MEDS: PANTOPRAZOLE 40 MG TABLET PO SCH (06:48)
[2016-06-15] MEDS: ENOXAPARIN 40 MG/0.4 ML SYRINGE SQ SCH (08:00)
[2016-06-15] MEDS: ATORVASTATIN 10 MG TAB PO SCH (08:00)
[2016-06-15] MEDS: NAPROXEN 250 MG TAB PO SCH ×2 (08:00→20:12)
[2016-06-15] MEDS: PARoxetine 20 MG TAB PO SCH (08:01)
[2016-06-15] MEDS: ASPIRIN 81 MG CHEW PO SCH (08:01)
[2016-06-15] MEDS: LISINOPRIL 20 MG TAB PO SCH (08:01)
[2016-06-15] MEDS: MULTIVITAMINS, THERA 1 EACH TAB PO SCH (08:01)
--- NOTE | 2016-06-15 09:12 | P.PN ---
Subjective Principal diagnosis: Dizziness and lightheadedness This is a pleasant 55-year-old gentleman with a past medical history significant for diabetes, hypertension, and dyslipidemia, who was seen recently in the office by Dr. Dr. Ulloa and the patient was scheduled to undergo a stress test. This time he was at home when he felt dizzy and lightheaded. He did not have any symptoms of chest pain or chest discomfort but he was turned blue according to his . The patient underwent a cardiac workup in the office where he had an echo showed normal LV function. In the hospital he had an EKG and cardiac enzymes and both came in to be unremarkable. On follow-up with him today, he stated that he was up and around and he was completely asymptomatic. The is quite concerned about sending the patient home. I will obtain a stress test this coming Thursday we will schedule the patient to undergo an exercise Cardiolite. He underwent carotid duplex study which came in to be unremarkable Objective - Vital Signs Vital signs: Vital Signs Temp 97.1 F L 06/15/16 08:00 Pulse 63 06/15/16 08:00 Resp 18 06/15/16 08:00 BP 139/85 06/15/16 08:00 Pulse Ox 94 L 06/15/16 08:00 Intake & Output 06/14/16 06/15/16 06/15/16 18:59 06:59 18:59 Intake Total 566 300 180 Balance 566 300 180 Weight 119.5 kg Intake: Oral 566 300 180 Other: Voiding Method Toilet # Voids 1 2 - Constitutional General appearance: Present: no acute distress - Respiratory Respiratory: bilateral: CTA - Cardiovascular Rhythm: regular Heart sounds: normal: S1, S2 - Labs CBC & Chem 7: 06/12/16 19:31 06/12/16 19:31 Labs: Abnormal Lab Results - Last 24 Hours (Table) 06/14/16 06/14/16 06/15/16 Range/Units 11:37 21:12 06:07 POC Glucose (mg/dL) 102 H 124 H 107 H (75-99) mg/dL Assessment and Plan Plan: Assessment #1 diabetes mellitus #2 hypertension #3 obesity #4 presyncope Plan #1 was scheduled the patient to undergo stress test this coming Thursday #2 the carotid duplex study showed no severe disease #3 follow-up with the patient
[2016-06-15 11:45] LABS: Glucose,Whole Blood 107 mg/dL (75-99)
--- NOTE | 2016-06-15 15:24 | P.PN ---
Subjective This patient is a 55-year-old right-handed white male was made at the hospital with episode of near syncope and vasovagal response. Patient had an episode in which he turned blue according to his and became very lightheaded. He was seen by cardiology for further evaluation. He is being scheduled for a stress test on Thursday. He underwent a carotid Doppler ultrasound which came back negative for any significant carotid artery stenosis. Patient has been resting comfortably in his had no further spells. Patient did undergo a cardiac workup recently which included echocardiogram which apparently showed normal LV function. He has been up and feeling well today with no further recurrence of lightheadedness or dizziness in the room. We will await further recommendations from cardiology. We will continue close neurological follow-up for the patient. He was unable to have EEG today as a technologist was not available. This is been tentatively scheduled for Thursday as well. His overall prognosis at this time remains guarded. Objective - Vital Signs Vital signs: Vital Signs Temp 97.1 F L 06/15/16 08:00 Pulse 63 06/15/16 12:00 Resp 18 06/15/16 12:00 BP 140/89 06/15/16 12:00 Pulse Ox 97 06/15/16 12:00 Intake & Output 06/14/16 06/15/16 06/15/16 18:59 06:59 18:59 Intake Total 566 300 402 Balance 566 300 402 Weight 119.5 kg Intake: Oral 566 300 402 Other: Voiding Method Toilet # Voids 1 2 - Exam Physical examination: PHYSICAL EXAMINATION: Patient is resting comfortably in bed. VITAL SIGNS: Blood pressure is [140/89]. Heart rate is [68]. Respiration is [18] . Temperature is [97.1]. HEENT: Head is atraumatic, neck is supple, there were no carotid bruits. CHEST: Lungs are clear to auscultation and percussion. CARDIAC: S1, S2 normal rate and rhythm. There is no murmur. ABDOMEN: Soft and nontender. Bowel sounds are present. EXTREMITIES: There is no pedal edema. Peripheral pulses are present. Neurological examination: Patient's neurological examination is unchanged from yesterday. - Labs CBC & Chem 7: 06/12/16 19:31 06/12/16 19:31 Labs: Abnormal Lab Results - Last 24 Hours (Table) 06/14/16 06/15/16 06/15/16 Range/Units 21:12 06:07 11:43 POC Glucose (mg/dL) 124 H 107 H 107 H (75-99) mg/dL Assessment and Plan (1) Vasovagal syncope Status: Acute Code(s): R55 - SYNCOPE AND COLLAPSE (2) Benign paroxysmal positional vertigo Status: Acute Code(s): H81.10 - BENIGN PAROXYSMAL VERTIGO, UNSPECIFIED EAR (3) Vascular dementia Status: Acute Code(s): F01.50 - VASCULAR DEMENTIA WITHOUT BEHAVIORAL DISTURBANCE (4) Cerebellar atrophy Status: Acute Code(s): G31.9 - DEGENERATIVE DISEASE OF NERVOUS SYSTEM, UNSPECIFIED Plan: This patient is a 55-year-old male being evaluated for near syncope. He had an episode of near syncope with mild discoloration and possible cyanosis. He has been seen by cardiology for possibility of vasovagal syncope cardiogenic syncope. He is scheduled to undergo a stress test on Thursday for further evaluation. He is scheduled to undergo EEG testing on Thursday to rule out further evaluation of syncope versus seizure. His neurological examination today is nonfocal. He has had no further episodes of syncope or lightheadedness. Cardiology is following his condition closely as well. He is scheduled to undergo a stress test tomorrow and we will await further recommendations from cardiology. Patient has had no further episodes since admission to the hospital. We will continue close neurological follow-up for this patient. His overall prognosis at this time remains guarded. Case was discussed at length with the patient and his at bedside. All their questions were answered. We will continue our current neurological assessment and recommendations.
[2016-06-15 16:37] LABS: Glucose,Whole Blood 87 mg/dL (75-99)
--- NOTE | 2016-06-15 16:49 | PN ---
DATE OF SERVICE: 06/15/2016 PRESENTING COMPLAINT: Dizzy and cyanosed. INTERVAL HISTORY: This patient presented with symptoms of getting dizzy and cyanosed, awaiting a stress test and EEG tomorrow. Up and about in the hallway. No episodes of arrhythmia has been noticed. No further episodes at the same time. Review of systems done for constitutional, cardiovascular, GI, pulmonary; relevant findings as above. Current medications are reviewed. On examination, temperature 97.1, pulse 52, respirations 18, blood pressure 139/85, pulse ox 98% on room air. GENERAL APPEARANCE: Sitting up, comfortable. EYES: Pupils equal. Conjunctivae normal. NECK: JVD not raised. Mass not palpable. Respiratory effort normal. Lungs are clear. CARDIOVASCULAR: First and second sounds normal. No edema. ABDOMEN: Soft, nontender. Liver and spleen not palpable. PSYCHIATRY: Alert and oriented. Mood and affect normal. INVESTIGATIONS: Accu-Cheks are noted. ASSESSMENT: 1. Episode of severe vertigo with cyanosis, arrhythmia has been ruled out. Pending a stress test. 2. Diagnosis mellitus type 2. 3. Gastroesophageal reflux disease. 4. Hyperlipidemia. 5. Essential hypertension. 6. Obesity, body mass index of 36%. PLAN: Patient is up and about in the hallway awaiting a stress test.
[2016-06-15] MEDS: SODIUM CHLORIDE 0.9% 1,000 ML IV SCH (20:13)
[2016-06-15 20:27] LABS: Glucose,Whole Blood 129 mg/dL (75-99)
[2016-06-16 06:00] LABS: Glucose,Whole Blood 117 mg/dL (75-99)
[2016-06-16] MEDS: INSULIN LISPRO (humaLOG) 300 UNIT/3 ML VIAL SQ SCH ×4 (06:22→20:48)
[2016-06-16] MEDS: ASPIRIN 81 MG CHEW PO SCH (06:24)
[2016-06-16] MEDS: PARoxetine 20 MG TAB PO SCH (06:24)
[2016-06-16] MEDS: MULTIVITAMINS, THERA 1 EACH TAB PO SCH (06:24)
[2016-06-16] MEDS: PANTOPRAZOLE 40 MG TABLET PO SCH (06:24)
[2016-06-16] MEDS: ATORVASTATIN 10 MG TAB PO SCH (06:24)
[2016-06-16] MEDS: ENOXAPARIN 40 MG/0.4 ML SYRINGE SQ SCH (06:24)
[2016-06-16] MEDS: NAPROXEN 250 MG TAB PO SCH ×2 (06:24→20:35)
--- NOTE | 2016-06-16 12:30 | EST ---
DATE OF SERVICE: 06/16/2016 AGE: 55Y SEX: M HT: 6'0" WT: 261 lbs. Protocol Edgar: X Other: Cardiolite Stress Stage: 3 Dur. of Exercise: 7:30 *Heart Rate Blood Pressure *Rest: 91 Rest: 138/90 * *Max. Achieved: 154 Maximum BP: 175/87 85% PMHR: 140 100% PMHR: 165 *METS: 9.1 INDICATIONS: Syncope. MEDICATIONS: - Baseline EKG revealed a normal sinus rhythm with poor R-wave progression over precordial leads, which may be related to lead placement. Patient walked on a standard Edgar protocol for 7-1/2 minutes, achieved a maximum heart rate of 150 beats per minute, which is more than 85% of predicted maximal. He developed fatigue and shortness of breath. He did not have any angina. There were no ST segment changes to indicate ischemia. There was no arrhythmia. Nonspecific upsloping ST segment changes were noted. By EKG criteria, this is a negative stress with fair exercise capacity. The nuclear scans, which are more pertinent, will be reported by the radiologist.
[2016-06-16] MEDS: LISINOPRIL 20 MG TAB PO SCH (12:32)
[2016-06-16] MEDS: metFORMIN 500 MG TAB PO SCH ×2 (12:33→17:17)
[2016-06-16 12:36] LABS: Glucose,Whole Blood 101 mg/dL (75-99)
--- NOTE | 2016-06-16 12:47 | NM ---
EXAMINATION TYPE: NM stress cardiolite complete DATE OF EXAM: 06/16/2016 12:33 PM COMPARISON: NONE HISTORY: Syncope TECHNIQUE: After the intravenous administration of 11.0 mCi Tc 99m Sestamibi - Rest images obtained 45 minutes post injection. The patient exercised using a DANIA protocol and 1 minute prior to peak exercise was injected with 27.5 mCi Tc 99m Sestamibi - Stress images obtained 14 minutes post injecti on. FINDINGS: Targeted heart rate was achieved during performance of the study. Review of stress and rest SPECT shawn ges demonstrates no distinct perfusion abnormality. Gated analysis shows normal wall motion with an estimated left ventricular ejection fraction of 50%. There is a defect along the inferior lateral wall on the stress images obtained from the base to the midportion. This has more normal appearance on the resting images. Clinical correlation for stress-in duced ischemic changes recommended. IMPRESSION: 1. Clinical correlation is recommended for stress-induced ischemic change along the inferior wall ext ending towards the lateral wall of within the proximal to midportion left ventricle.
[2016-06-16] MEDS ORDERED: SODIUM CHLORIDE 0.9% 1,000 ML in EMPTY BAG 1 BAG IV ONE (14:25)
[2016-06-16] MEDS ORDERED: ATORVASTATIN 80 MG TAB PO STA (14:25)
[2016-06-16] MEDS ORDERED: ASPIRIN 325 MG TAB PO STA (14:25)
[2016-06-16] MEDS ORDERED: ALPRAZolam 0.5 MG TAB PO PRN (14:25)
[2016-06-16] MEDS ORDERED: ALPRAZolam 0.25 MG TAB PO PRN (14:25)
[2016-06-16] MEDS ORDERED: NITROGLYCERIN SL TABS 0.4 MG TAB SUBLINGUAL PRN (14:25)
[2016-06-16 17:07] LABS: Glucose,Whole Blood 76 mg/dL (75-99)
--- NOTE | 2016-06-16 18:59 | P.PN ---
Subjective This patient is a 55-year-old right-handed white male was made at the hospital with episode of near syncope and vasovagal response. Patient had an episode in which he turned blue according to his and became very lightheaded. He was seen by cardiology for further evaluation. He is being scheduled for a stress test on Thursday. He underwent a carotid Doppler ultrasound which came back negative for any significant carotid artery stenosis. Patient has been resting comfortably in his had no further spells. Patient did undergo a cardiac workup recently which included echocardiogram which apparently showed normal LV function. He has been up and feeling well today with no further recurrence of lightheadedness or dizziness in the room. The patient was seen by cardiology today and underwent a stress test which was reported negative. A Cardiolite stress test however did show stress-induced ischemia in the left lateral wall of the left ventricle. According to the patient he is being considered for stent placement to the coronaries possibly tomorrow. Patient also underwent routine EEG today which is reviewed and showed only slight slowing with no epileptiform discharges. We will continue close follow-up with cardiology. His overall prognosis at this time remains guarded. Objective - Vital Signs Vital signs: Vital Signs Temp 97.4 F L 06/16/16 15:58 Pulse 65 06/16/16 15:58 Resp 18 06/16/16 15:58 BP 128/83 06/16/16 15:58 Pulse Ox 96 06/16/16 15:58 Intake & Output 06/15/16 06/16/16 06/16/16 18:59 06:59 18:59 Intake Total 624 600 Output Total 400 300 Balance 224 -300 600 Weight 118.6 kg Intake: Oral 624 600 Output: Urine 400 300 Other: # Voids 1 1 - Exam Physical examination: PHYSICAL EXAMINATION: Patient is resting comfortably in bed. VITAL SIGNS: Blood pressure is [128/83]. Heart rate is [65]. Respiration is [18] . Temperature is [97.4]. HEENT: Head is atraumatic, neck is supple, there were no carotid bruits. CHEST: Lungs are clear to auscultation and percussion. CARDIAC: S1, S2 normal rate and rhythm. There is no murmur. ABDOMEN: Soft and nontender. Bowel sounds are present. EXTREMITIES: There is no pedal edema. Peripheral pulses are present. Neurological examination: Patient's neurological examination is unchanged from yesterday. - Labs CBC & Chem 7: 06/12/16 19:31 06/12/16 19:31 Labs: Abnormal Lab Results - Last 24 Hours (Table) 06/15/16 06/16/16 06/16/16 Range/Units 20:26 05:58 12:28 POC Glucose (mg/dL) 129 H 117 H 101 H (75-99) mg/dL Assessment and Plan (1) Vasovagal syncope Status: Acute Code(s): R55 - SYNCOPE AND COLLAPSE (2) Benign paroxysmal positional vertigo Status: Acute Code(s): H81.10 - BENIGN PAROXYSMAL VERTIGO, UNSPECIFIED EAR (3) Vascular dementia Status: Acute Code(s): F01.50 - VASCULAR DEMENTIA WITHOUT BEHAVIORAL DISTURBANCE (4) Cerebellar atrophy Status: Acute Code(s): G31.9 - DEGENERATIVE DISEASE OF NERVOUS SYSTEM, UNSPECIFIED Plan: This patient is a 55-year-old male being evaluated for near syncope. He had an episode of near syncope with mild discoloration and possible cyanosis. He has been seen by cardiology for possibility of vasovagal syncope cardiogenic syncope. He is scheduled to undergo a stress test on Thursday for further evaluation. He is scheduled to undergo EEG testing on Thursday to rule out further evaluation of syncope versus seizure. His neurological examination today is nonfocal. He has had no further episodes of syncope or lightheadedness. Cardiology is following his condition closely as well. Patient was able to complete his stress test this morning which was reported to be negative. His Cardiolite stress test however was positive for ischemia and cardiology is now planning for a coronary artery stent placement. He will undergo angiogram study tomorrow for further management and treatment. He did undergo routine EEG today which was reviewed and reveals only slight slowing with no epileptiform discharges. We did discuss the results of the EEG today with the patient in detail. Would recommend close neurological follow-up for the patient. His overall prognosis remains guarded at this time.
[2016-06-16 20:39] LABS: Glucose,Whole Blood 93 mg/dL (75-99)
[2016-06-16] MEDS: SODIUM CHLORIDE 0.9% 1,000 ML IV SCH (20:47)
--- NOTE | 2016-06-16 21:03 | PN ---
DATE OF SERVICE: 06/16/2016 PRESENTING COMPLAINT: Dizzy and cyanosis. INTERVAL HISTORY: This patient presented with dizziness, getting cyanosed. All the work-up has been negative. The patient stress test has come back positive today. The patient has been up and about in the hallway without chest pain. Review of systems done for constitutional, cardiovascular, GI, pulmonary; relevant findings as above. Current medications are reviewed. On examination, temperature 97.4, pulse 65, respiratory rate 18, blood pressure 120/83, pulse ox 96% room air. GENERAL APPEARANCE: Sitting up, comfortable. EYES: Pupils equal. Conjunctivae normal. NECK: JVD not raised. Mass not palpable. RESPIRATORY: Effort normal. Lungs are clear. CARDIOVASCULAR: First and second sounds normal. No edema. ABDOMEN: Soft. Nontender. Liver and spleen not palpable. PSYCHIATRY: Alert and oriented times three. Mood and affect normal. INVESTIGATIONS: Accu-Cheks are noted. Cardiolite stress test shows ischemia along the inferior wall and lateral wall. ASSESSMENT: 1. Episode of ( ) with cyanosis, now showing a positive stress test. 2. Diabetes mellitus, type II. 3. Gastroesophageal reflux disease. 4. Hyperlipidemia. 5. Essential hypertension. 6. Obesity, body mass index of 36. PLAN: Patient has positive stress test. Anticipate cardiac catheterization from cardiology.
[2016-06-17 05:51] LABS: Glucose,Whole Blood 95 mg/dL (75-99)
[2016-06-17] MEDS: INSULIN LISPRO (humaLOG) 300 UNIT/3 ML VIAL SQ SCH ×3 (07:02→17:30)
[2016-06-17] MEDS: metFORMIN 500 MG TAB PO SCH (07:02)
[2016-06-17] MEDS: PANTOPRAZOLE 40 MG TABLET PO SCH (07:03)
[2016-06-17] MEDS: NAPROXEN 250 MG TAB PO SCH ×2 (07:03→08:01)
[2016-06-17] MEDS: LISINOPRIL 20 MG TAB PO SCH (07:03)
[2016-06-17] MEDS: PARoxetine 20 MG TAB PO SCH (07:03)
[2016-06-17] MEDS: MULTIVITAMINS, THERA 1 EACH TAB PO SCH (07:03)
[2016-06-17] MEDS: ATORVASTATIN 10 MG TAB PO SCH (07:03)
[2016-06-17] MEDS: ASPIRIN 81 MG CHEW PO SCH (07:03)
[2016-06-17] MEDS: ENOXAPARIN 40 MG/0.4 ML SYRINGE SQ SCH (08:02)
--- NOTE | 2016-06-17 08:41 | EEG ---
DATE OF SERVICE: 06/16/2016 INDICATIONS FOR EXAMINATION: This patient is a 55-year-old male being evaluated for acute syncope and collapse. Patient with episode of cyanosis and possible cardiac etiology. Patient also with a history of acute vertigo with dizziness. AGE: 55Y EEG FINDINGS: A routine 21-channel, awake digital EEG recording was accomplished utilizing the 10 - 20 international system with bipolar and referential montages. The background activity in the most alert resting state consists of a low amplitude, fairly well-developed and well-sustained 6 Hz activity over the posterior head regions. This posterior rhythm attenuates to eye opening. There is a small amount of low amplitude 18 - 20 Hz beta activity seen maximally over the anterior head regions. Muscle and movement artifact was observed on a few occasions during the tracing. Hyperventilation was not performed. Photic stimulation at flash frequencies of 2 - 30 Hz produced a minimal occipital driving response. No epileptiform discharges were seen. IMPRESSION: This EEG is moderately abnormal in diffuse fashion due to slowing of the EEG background. The EEG failed to reveal any focal, lateralized or epileptiform abnormalities. Clinical correlation is recommended.
[2016-06-17 09:10] VITALS: RESP 20
--- NOTE | 2016-06-17 10:28 | P.PN ---
Progress Note - Text This is a pleasant 55-year-old gentleman with a past medical history significant for hypertension and dyslipidemia and obesity presented to the hospital feeling dizzy and lightheaded and had presyncope. The cardiac workup of EKG and enzymes came in to be unremarkable. The patient underwent myocardial perfusion imaging stress test which showed inferolateral ischemia. He was scheduled to undergo a heart catheterization today by Dr. Dr. Ulloa. The patient requested to be seen again because he had some clarification regarding the heart catheterization and he thought that he is going to have an open heart surgery. I explained the procedure the patient in details including the risk and benefits. He still going to have the procedure done this later morning.
[2016-06-17] MEDS ORDERED: IV FLUID CONTINUATION 1,000 ML IV ONE (11:45)
[2016-06-17 11:46] VITALS: TEMP 97.1
[2016-06-17] MEDS ORDERED: MIDAZOLAM 2 MG/2 ML VIAL IVP ONE (11:50)
[2016-06-17] MEDS ORDERED: LIDOCAINE 2% INJ 20 MG/ML SQ ONE (11:53)
[2016-06-17] MEDS ORDERED: HYDROmorphone 2 MG/ML 1 ML SYRINGE IVP ONE (12:20)
[2016-06-17] MEDS ORDERED: RX INFO: IV CONTRAST WAS GIVEN 1 EACH MISC MISCELLANE PRN (12:27)
[2016-06-17] MEDS ORDERED: IOHEXOL 350 MG/ML 100 ML BOTTLE INJ ONE (12:27)
[2016-06-17] MEDS ORDERED: SODIUM CHLORIDE 0.9% 1,000 ML IV SCH (12:30)
--- NOTE | 2016-06-17 12:33 | P.PCN ---
Date of Procedure: 06/17/16 Preoperative Diagnosis: Chest pain ,shortness of breath and near-syncope. Patient also had a positive stress correlation study Postoperative Diagnosis: Mild coronary artery disease without any critical lesions Procedure(s) Performed: Left heart catheterization with left ventriculography Description of Procedure: HISTORY: This is a 55-year-old gentleman with history of hypertension and hypercholesteremia and diabetes mellitus who was recently seen in the office with complaints of shortness of breath which was unexplained. His echo cardiogram showed good LV function. Patient is admitted now to the hospital with complaints of near syncope. Patient was evaluated the nuclear stress test which was reported as showing possible ischemia in the inferior wall. Patient is advised to have cardiac catheterization. Patient was evaluated by Dr. Mason. CONSENT:We have discussed the risks, benefits and alternative therapies for the above-mentioned procedure and for both sedation/analgesia as well as necessary blood product administration, if indicated, as they pertain to this patient. The patient has indicated understanding and acceptance of the risks and procedures discussed. PROCEDURE: Patient was brought to the lab in a fasting state. Patient was given some IV sedation. The right groin is infiltrated with lidocaine and right femoral artery was entered using Seldinger technique. A 6-Mozambican catheter was left in place and selective coronary arteriography and left ventriculography was performed. Patient tolerated the procedure well. Femoral angiogram was performed and Angio-Seal was applied for hemostasis. No immediate complications were noted and patient was transferred to [facility] in a stable condition HEMODYNAMICS: Aortic pressure is 130/90. Left ankle end-diastolic pressure is 12-15. There was no gradient across the aortic valve SELECTIVE CORONARY ARTERIOGRAPHY: LEFT MAIN: Normal length and patent THE LEFT ANTERIOR DESCENDING CORONARY ARTERY: Good caliber vessel with about 30% lesion in the midportion. No critical lesions were noted. The LAD reaches the apex and wraps around THE LEFT CIRCUMFLEX AND IS CORONARY ARTERY: This is a moderate caliber vessel giving rise to PLV branch of good size and an AV groove segment. The circumflex was coronary artery and branches are free of occlusive disease THE RIGHT CORONARY ARTERY: Relatively small caliber vessel and free of any occlusive disease. There appears to be a connecting vessel and the sternal right and circumflex with retrograde flow. LEFT VENTRICULOGRAPHY: This revealed normal-sized cardiac silhouette with good systolic function FINAL IMPRESSION: Mild coronary artery disease involving the LAD. Preserved LV function. End-diastolic pressures are also normal PLAN: Maximum medical therapy and this factor modification PROGNOSIS: Good
[2016-06-17 16:52] LABS: Glucose,Whole Blood 198 mg/dL (75-99)
[2016-06-17 17:41] VITALS: BP 122/85; PULSE 66
--- NOTE | 2016-06-17 22:20 | DS ---
DATE OF ADMISSION: 06/12/2016 DATE OF DISCHARGE: 06/17/2016 FINAL DIAGNOSES: 1. Episodes of vertigo with cyanosis with a past history of ( ) cardiac catheterization. Episodic arrhythmia still a possibility. 2. Diabetes mellitus type 2. 3. Gastroesophageal reflux disease. 4. Hyperlipidemia. 5. Essentially hypertension. 6. Obesity, body mass index of 36. CONSULTATIONS: Dr. Oconnell from cardiology, Dr. Gonzales Holden from neurology. HOSPITAL COURSE: This patient presented with episode of severe vertigo, cyanosis. Carotid Doppler did not show any critical stenosis. EEG did show some slowing of the EEG background, but there is no obvious seizure activity. Stress test ( ). Cardiac catheterization by Dr. Ulloa showed minimal disease. Still possible patient may have underlying episodic arrhythmia. Patient event monitor will be done. On exam, lungs are clear. CARDIOVASCULAR: First and second sounds are normal. Care was discussed with the patient and . DISCHARGE MEDICATIONS: 1. Aspirin 81 mg a day. 2. Lisinopril 40 mg a day. 3. Mevacor 40 mg a day. 4. Multivitamin 1 tablet p.o. daily. 5. Naproxen 375 mg p.o. q.12. 6. Paxil 40 mg a day. 7. Protonix 40 mg a day. 8. Glucophage 500 mg p.o. b.i.d. 9. Antivert 25 mg p.o. t.i.d. p.r.n. Follow up with Dr. Gonzales Holden in 3 weeks. Follow up with Dr. Quinones in 1 week. Follow up with Dr. Ulloa in the office for event monitor.
== END 2016-06-17 18:44 | disposition home or self-care (01) | DRG 149 ==
LOC: EC 18:31 → 6SEL 21:24
PROVIDERS: ADMIT Hospitalist; ATTEND Hospitalist
PROC: B2111ZZ Fluoroscopy of Multiple Coronary Arteries using Low Osmolar Contrast (ICD-10-PCS; 2016-06-17)
PROC: B2151ZZ Fluoroscopy of Left Heart using Low Osmolar Contrast (ICD-10-PCS; 2016-06-17)
PROC: 4A023N7 Measurement of Cardiac Sampling and Pressure, Left Heart, Percutaneous Approach (ICD-10-PCS; principal; 2016-06-17 11:40)
DX: R42 Dizziness and giddiness (principal); F01.50 Vascular dementia, unspecified severity, without behavioral disturbance, psychotic disturbance, mood disturbance, and anxiety; G31.9 Degenerative disease of nervous system, unspecified; R23.0 Cyanosis; I49.9 Cardiac arrhythmia, unspecified; H81.10 Benign paroxysmal vertigo, unspecified ear; K21.9 Gastro-esophageal reflux disease without esophagitis; I10 Essential (primary) hypertension; E78.5 Hyperlipidemia, unspecified; E11.9 Type 2 diabetes mellitus without complications; F17.220 Nicotine dependence, chewing tobacco, uncomplicated; I25.119 Atherosclerotic heart disease of native coronary artery with unspecified angina pectoris; Z90.49 Acquired absence of other specified parts of digestive tract; E66.9 Obesity, unspecified; Z68.36 Body mass index [BMI] 36.0-36.9, adult; Z88.2 Allergy status to sulfonamides; R32 Unspecified urinary incontinence; E78.00 Pure hypercholesterolemia, unspecified; Z79.84 Long term (current) use of oral hypoglycemic drugs; Z79.82 Long term (current) use of aspirin; Z79.899 Other long term (current) drug therapy
CPT/HCPCS: 36415; 70450; 70496; 70498; 71020; 78452; 80053; 81003; 82550; 82553; 83036; 83735; 83880; 84484; 85025; 85379; 85610; 85730; 93005; 93017; 93458; 93880; 95819; 99285

== ENCOUNTER → 2016-07-28 | Outpatient (CLI) | payer MEDICARE, BC ==
[2016-07-28 13:53] LABS: Non-African American GFR(MDRD) >60 (>60 ml/min/1.73 sqM)
--- NOTE | 2016-07-28 17:14 | MR ---
EXAMINATION TYPE: MR iac wo/w con DATE OF EXAM: 07/28/2016 3:18 PM COMPARISON: 09/17/2015 HISTORY: Mild cognitive impairment, arachnoid cyst, vertigo T1-weighted sagittal, diffusion, T2, and FLAIR axial views of the brain are submitted. The high-reso lution T2 axial and postcontrast T1 axial and coronal views of the IACs are submitted. There is no pathologic enhancement of the seventh and eighth cranial nerve complex. There is no acou stic neuroma. There is a prominent posterior fossa cyst. Differential diagnosis would include a prominent cisterna magna or arachnoid cyst. Finding appears stable. There are multiple foci of abnormal signal within th e white matter bilaterally. The measure 7 mm or less. Findings appear to be stable. Changes of mild chronic sinusitis noted. 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 IMPRESSION: 1. No evidence of cerebellopontine angle mass or acoustic schwannoma. 2. Stable prominent posterior fossa cyst. Differential includes giant cisterna magna or arachnoid cys t. No interval change. 3. Chronic sinusitis. 4. Posterior nasopharynx demonstrates a 6 mm mucosal lesion. 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
== END | disposition home or self-care (01) ==
LOC: RADMRIMAIN 13:31
PROVIDERS: ATTEND Psychiatry & Neurology Neurology
DX: G93.0 Cerebral cysts (principal); J32.9 Chronic sinusitis, unspecified
CPT/HCPCS: 82565; 70553; A9577

== ENCOUNTER → 2016-08-19 | Outpatient (CLI) | payer MEDICARE, BC | END | disposition home or self-care (01) | LOC: LABWHC1 09:02 | PROVIDERS: ATTEND Otolaryngology | DX: R53.83 Other fatigue (principal); G47.33 Obstructive sleep apnea (adult) (pediatric) | CPT/HCPCS: 36415; 84439; 84443; 86141 ==

== ENCOUNTER → 2016-12-03 | Outpatient (CLI) | payer MEDICARE, BC | END | disposition home or self-care (01) | LOC: LABPAT 12:45 | PROVIDERS: ATTEND Otolaryngology | DX: Z01.810 Encounter for preprocedural cardiovascular examination (principal); Z01.812 Encounter for preprocedural laboratory examination; I10 Essential (primary) hypertension | CPT/HCPCS: 93005 ==

== ENCOUNTER → 2017-09-07 | Outpatient (CLI) | payer MEDICARE, BC ==
--- NOTE | 2017-09-07 14:44 | MR ---
EXAMINATION TYPE: MR brain and iac wo/w con DATE OF EXAM: 09/07/2017 COMPARISON: Correlation to prior internal auditory canal MRI 07/28/2016 HISTORY: TINNITUS HEARING LOSS TECHNIQUE: Multiplanar multisequence imaging obtained through the brain pre- and postadministration of intraveno us contrast, small [id number] high-resolution images obtained through the internal auditory canals , patient received 12.5 cc Gadavist IV. FINDINGS: Diffusion weighted images demonstrate no evidence of a recent infarct or other diffusion ab normality. There is no extra-axial fluid collection. Periventricular white matter shows confluent an d scattered foci of hyperintensity on inversion recovery and T2-weighted sequences similar to prior e xam. The ventricular system and cisternal spaces are normal in size and appearance. The brain volum e is age appropriate. Posterior fossa shows a similar appearance, possible arachnoid cyst or charley cis terna magna at the level of the cerebellar hemispheres, posterior to the left cerebellar hemisphere Midline structures demonstrate normal morphology. The craniocervical junction appears within normal limits. Post contrast images demonstrate no abnormal enhancement. The dural venous sinuses appear pa tent. The visualized sinuses are remarkable for air-fluid level in the right maxillary sinus, maxilla ry sinuses show mucosal thickening bilaterally, inflammatory change present in the ethmoid air cells, and the globes are intact. Minimal inflammatory change present in the mastoid air cells on the left. IMPRESSION: Correlate for right maxillary sinusitis. No evident acoustic neuroma or cerebellopontine angle mass. Findings are essentially stable as described.
== END | disposition home or self-care (01) ==
LOC: RADMRIMAIN 12:35
PROVIDERS: ATTEND Otolaryngology
DX: H93.3X2 Disorders of left acoustic nerve (principal); H93.19 Tinnitus, unspecified ear
CPT/HCPCS: 82565; 70553; 36415; A9581

== ENCOUNTER → 2017-11-16 | Outpatient (CLI) | payer MEDICARE, BC ==
--- NOTE | 2017-11-16 20:19 | US ---
EXAMINATION TYPE: US thyroid st tissue head/neck DATE OF EXAM: 11/16/2017 COMPARISON: NONE CLINICAL HISTORY: G31.84 mild cognitive impairment, G93.0 arachnoid. Thyromegaly GLAND SIZE: Right Lobe: 5.6 x 2.4 x 2.5 cm Overall Parenchyma: heterogenous Left Lobe: 6.1 x 2.2 x 2.6 cm Overall Parenchyma: heterogeneous Isthmus Thickness: 0.3 cm NODULES RIGHT: # of nodules measured on right: 0 LEFT: # of nodules measured on left: 0 ISTHMUS: # of nodules measured in the isthmus: 0 Bilateral neck scanned, normal appearing lymph node left neck Enlarged, heterogeneous thyroid gland. NO distinct nodule noted at this time IMPRESSION: Enlarged thyroid gland with heterogeneity. This is consistent with multinodular goiter. No dominant m ass.
== END | disposition home or self-care (01) ==
LOC: RADUSWWP 16:51
PROVIDERS: ATTEND Psychiatry & Neurology Neurology
DX: E04.9 Nontoxic goiter, unspecified (principal); G31.84 Mild cognitive impairment of uncertain or unknown etiology; G93.0 Cerebral cysts
CPT/HCPCS: 76536

== ENCOUNTER → 2018-01-20 | Outpatient (CLI) | payer MEDICARE, BC ==
[2018-01-20 11:57] LABS: T4, Free (Free Thyroxine) 0.96 ng/dL (0.78-2.19)
[2018-01-20 17:46] LABS: Thyroid Peroxidase Antibodies 437.7 U/mL (0.0-60.0)
== END | disposition home or self-care (01) ==
LOC: LABWHC1 10:24
PROVIDERS: ATTEND Internal Medicine Endocrinology, Diabetes & Metabolism
DX: E04.9 Nontoxic goiter, unspecified (principal)
CPT/HCPCS: 36415; 84439; 84443; 84480; 86376

== ENCOUNTER 2020-02-12 15:53 | Emergency (ER) | payer MEDICARE, BC ==
[2020-02-12 16:00] VITALS: BP 113/81; PULSE 94; RESP 18; TEMP 97.7
--- NOTE | 2020-02-12 16:15 | ED ---
General Adult HPI - General Chief complaint: Recheck/Abnormal Lab/Rx Stated complaint: dehydrated Time Seen by Provider: 02/12/20 16:07 Source: patient Mode of arrival: ambulatory Limitations: no limitations - History of Present Illness Initial comments: Dictation was produced using [employer] dictation software. please excuse any grammatical, word or spelling errors. This patient was cared for during a federal and state declared state of emergency secondary to Covid 19 Chief Complaint: 59-year-old male presents with urinary retention. History of Present Illness: Is a 59-year-old male presents today with his . Patient states over the last several days she's been having weakened urinary streams. He feels like whenever he urinates he doesn't get all of the urine out of his bladder. Patient states his stream has been progressively weak. He has known history of prostate problems. He is also have a procedure done with Dr. Martinez of urology to improve his urinary output. He has minimal suprapubic fullness. The ROS documented in this emergency department record has been reviewed and confirmed by me. Those systems with pertinent positive or negative responses have been documented in the HPI. All other systems are other negative and/or noncontributory. PHYSICAL EXAM: General Impression: Alert and oriented x3, not in acute distress HEENT: Normocephalic atraumatic, extra-ocular movements intact, pupils equal and reactive to light bilaterally, mucous membranes moist. Cardiovascular: Heart regular rate and rhythm Chest: Able to complete full sentences, no retractions, no tachypnea Abdomen: abdomen soft, non-tender, non-distended, no organomegaly Musculoskeletal: Pulses present and equal in all extremities, no peripheral edema Motor: no focal deficits noted Neurological: CN II-XII grossly intact, no focal motor or sensory deficits noted Skin: Intact with no visualized rashes Psych: Normal affect and mood : No penile erythema, no testicular tenderness, no urethral discharge ED course: 59-year-old male with chief complaint of urinary retention. Vital signs upon arrival are within acceptable limits. Post void residual was 111. Metabolic panel was obtained showing sodium 129 with a glucose of 606. There is no acidosis. Urinalysis shows 4+ glucose. Patient started intravenous fluids and given insulin.Patient's repeat blood sugar was obtained for 51. Patient given another dose of insulin. Patient does have a glucometer at home. He is told to monitor his glucose measurements at home. He is advised to schedule an appointment with his urologist and primary care physician for outpatient management of weak urinary stream and hypoglycemia. Patient understandable agreeable to disposition. - Related Data Home Medications Medication Instructions Recorded Confirmed Aspirin EC [Ecotrin Low Dose] 81 mg PO DAILY 06/12/16 06/12/16 Lovastatin [Mevacor] 40 mg PO DAILY 06/12/16 06/12/16 Multivitamins, Thera [Multivitamin 1 tab PO DAILY 06/12/16 06/12/16 (formulary)] Naproxen [Naprosyn] 375 mg PO Q12HR 06/12/16 06/12/16 PARoxetine HCL [Paxil] 40 mg PO DAILY 06/12/16 06/12/16 Pantoprazole Sodium [Protonix] 40 mg PO DAILY 06/12/16 06/12/16 lisinopriL 40 mg PO DAILY 06/12/16 06/12/16 metFORMIN HCL [Glucophage] 500 mg PO BID 06/12/16 06/12/16 Previous Rx's Medication Instructions Recorded Meclizine [Antivert] 25 mg PO TID PRN #0 06/17/16 Allergies Allergy/AdvReac Type Severity Reaction Status Date / Time Sulfa (Sulfonamide Allergy Rash/Hives Verified 02/12/20 15:57 Antibiotics) adhesive AdvReac Rash/Hives Verified 02/12/20 15:57 Review of Systems ROS Statement: Those systems with pertinent positive or pertinent negative responses have been documented in the HPI. ROS Other: All systems not noted in ROS Statement are negative. Past Medical History Past Medical History: Diabetes Mellitus, GERD/Reflux, Hyperlipidemia, Hyp ertension Additional Past Medical History / Comment(s): Dizziness History of Any Multi-Drug Resistant Organisms: None Reported Past Surgical History: Appendectomy Additional Past Surgical History / Comment(s): Vein stripping right leg, hemroidectomy Past Anesthesia/Blood Transfusion Reactions: No Reported Reaction Past Psychological History: No Psychological Hx Reported Smoking Status: Never smoker Past Alcohol Use History: None Reported Past Drug Use History: None Reported - Past Family History Mother History Unknown: Yes Family Medical History: No Reported History Father Family Medical History: Cancer Additional Family Medical History / Comment(s): from Lymphoma in 2011 General Exam Limitations: no limitations Course Vital Signs 02/12/20 15:57 Temperature 97.7 F Pulse Rate 94 Respiratory 18 Rate Blood Pressure 113/81 O2 Sat by Pulse 97 Oximetry Medical Decision Making - Lab Data Result diagrams: 02/12/20 16:45 Lab Results 02/12/20 02/12/20 02/12/20 Range/Units 16:45 16:45 18:39 Sodium 129 L (137-145) mmol/L Potassium 4.5 (3.5-5.1) mmol/L Chloride 92 L (98-107) mmol/L Carbon Dioxide 25 (22-30) mmol/L Anion Gap 12 mmol/L BUN 19 (9-20) mg/dL Creatinine 1.25 (0.66-1.25) mg/dL Est GFR (CKD-EPI)AfAm 73 (>60 ml/min/1.73 sqM) Est GFR (CKD-EPI)NonAf 63 (>60 ml/min/1.73 sqM) Glucose 606 H* (74-99) mg/dL POC Glucose (mg/dL) 451 H (75-99) mg/dL POC Glu [facility] Dentist ID Allyson Minaya Calcium 9.8 (8.4-10.2) mg/dL Urine Color Yellow Urine Appearance Clear (Clear) Urine pH 5.5 (5.0-8.0) Ur Specific [place] 1.033 (1.001-1.035) Urine Protein Negative (Negative) Urine Glucose (UA) 4+ H (Negative) Urine Ketones Negative (Negative) Urine Blood Negative (Negative) Urine Nitrite Negative (Negative) Urine Bilirubin Negative (Negative) Urine Urobilinogen <2.0 (<2.0) mg/dL Ur Leukocyte Esterase Negative (Negative) Disposition Clinical Impression: Hyperglycemia Disposition: HOME SELF-CARE Condition: Good Instructions (If sedation given, give patient instructions): Enlarged Prostate (BPH) (ED), Diabetic Hyperglycemia (ED) Additional Instructions: Follow-up with her primary care physician for outpatient management of hyperglycemia. Urinalysis also encouraged to follow-up with your urologist for outpatient management of prostate hypertrophy. Is patient prescribed a controlled substance at d/c from ED?: No Referrals: Darryl Quinones DO [Primary Care Provider] - 1-2 days Time of Disposition: 19:21
[2020-02-12 16:59] LABS: Appearance,Urine Clear (Clear); Bilirubin,Urine Negative (Negative); Blood,Urine Negative (Negative); Color,Urine Yellow; Glucose,Urine (UA) 4+ (Negative); Ketones,Urine Negative (Negative); Leukocyte Esterase,Urine Negative (Negative); Nitrite,Urine Negative (Negative); PH, Urine 5.5 (5.0-8.0); Protein,Urine Negative (Negative); Specific Gravity,Urine 1.033 (1.001-1.035); Urobilinogen,Urine <2.0 mg/dL (<2.0)
[2020-02-12 17:03] LABS: Calcium 9.8 mg/dL (8.4-10.2); Potassium 4.5 mmol/L (3.5-5.1)
[2020-02-12] MEDS ORDERED: SODIUM CHLORIDE 0.9% 1,000 ML IV STA (17:24)
[2020-02-12] MEDS ORDERED: INSULIN REGULAR 100 UNIT/ML VIAL IV ONE ×2 (17:24→18:43)
[2020-02-12 18:40] LABS: Glucose,Whole Blood 451 mg/dL (75-99)
[2020-02-12 19:34] LABS: Glucose,Whole Blood 331 mg/dL (75-99)
== END 2020-02-12 19:30 | disposition home or self-care (01) ==
LOC: EC 15:53
DX: E11.65 Type 2 diabetes mellitus with hyperglycemia (principal); K21.9 Gastro-esophageal reflux disease without esophagitis; I10 Essential (primary) hypertension; E78.5 Hyperlipidemia, unspecified; Z79.82 Long term (current) use of aspirin; Z79.84 Long term (current) use of oral hypoglycemic drugs; Z79.899 Other long term (current) drug therapy; Z88.2 Allergy status to sulfonamides; Z91.048 Other nonmedicinal substance allergy status
CPT/HCPCS: 36415; 51798; 80048; 81003; 96360; 99284

== ENCOUNTER 2020-02-13 00:03 | Observation (INO) | payer MEDICARE, BC ==
[2020-02-13 00:17] LABS: Glucose,Whole Blood >600 mg/dL (75-99)
[2020-02-13] MEDS ORDERED: INSULIN REGULAR 100 UNIT/ML VIAL IV ONE (00:20)
[2020-02-13] MEDS ORDERED: SODIUM CHLORIDE 0.9% 500 ML 500 ML IV ONE (00:20)
[2020-02-13 00:44] LABS: Appearance,Urine Clear (Clear); Bilirubin,Urine Negative (Negative); Blood,Urine Negative (Negative); Color,Urine Light Yellow; Glucose,Urine (UA) 4+ (Negative); Ketones,Urine Negative (Negative); Leukocyte Esterase,Urine Negative (Negative); Nitrite,Urine Negative (Negative); Protein,Urine Negative (Negative); Specific Gravity,Urine 1.027 (1.001-1.035); Urobilinogen,Urine <2.0 mg/dL (<2.0)
[2020-02-13] MEDS: SODIUM CHLORIDE 0.9% 1,000 ML IV SCH ×3 (00:45→14:44)
[2020-02-13 00:47] LABS: Basophils # (A) 0.1 k/uL (0-0.2); Basophils % (A) 1 %; Eosinophils # (A) 0.2 k/uL (0-0.7); Eosinophils % (A) 2 %; HCT 46.5 % (39.0-53.0); HGB 15.4 gm/dL (13.0-17.5); Lymphocytes # (A) 1.9 k/uL (1.0-4.8); Lymphocytes % (A) 22 %; MCH 30.8 pg (25.0-35.0); MCV 93.4 fL (80.0-100.0); Monocytes # (A) 0.6 k/uL (0-1.0); Monocytes % (A) 7 %; Neutrophils # (A) 5.5 k/uL (1.3-7.7); Neutrophils % (A) 66 %; Platelet Count 205 k/uL (150-450); RBC 4.98 m/uL (4.30-5.90); RDW 12.5 % (11.5-15.5); WBC 8.5 k/uL (3.8-10.6)
[2020-02-13 00:54] LABS: ALT 70 U/L (4-49); AST 47 U/L (17-59); African American GFR (CKD) 77 (>60 ml/min/1.73 sqM); Albumin 4.2 g/dL (3.5-5.0); Alkaline Phosphatase 130 U/L (38-126); Anion Gap 10 mmol/L; Blood Urea Nitrogen 20 mg/dL (9-20); Calcium 9.6 mg/dL (8.4-10.2); Carbon Dioxide 26 mmol/L (22-30); Chloride 89 mmol/L (98-107); Magnesium 1.9 mg/dL (1.6-2.3); Non-African American GFR(CKD) 67 (>60 ml/min/1.73 sqM); Phosphorus 5.4 mg/dL (2.5-4.5); Sodium 125 mmol/L (137-145); Total Bilirubin 0.8 mg/dL (0.2-1.3); Total Protein 6.7 g/dL (6.3-8.2)
[2020-02-13 01:08] LABS: Glucose 719 mg/dL (74-99)
[2020-02-13] MEDS ORDERED: NALOXONE 0.4 MG/ML 1 ML VIAL IV PRN (01:59)
--- NOTE | 2020-02-13 02:01 | ED ---
Recheck HPI - General Chief Complaint: Recheck/Abnormal Lab/Rx Stated Complaint: High Blood Pressure Time Seen by Provider: 02/13/20 00:19 Source: patient Mode of arrival: ambulatory Limitations: no limitations - History of Present Illness Initial Comments: 59 yo male with type 2 diabetes, presenting today for cc of elevated sugar. he stated his made him come in because she took his sugar this evening and its greater than 500. Denies nausea, vomiting, abdominal pain, visual changes or shortness of breath. patient states he cant stop eating milkshakes a cookies. - Related Data Home Medications Medication Instructions Recorded Confirmed Lovastatin [Mevacor] 40 mg PO DAILY 06/12/16 02/13/20 Naproxen [Naprosyn] 375 mg PO Q12HR PRN 06/12/16 02/13/20 PARoxetine HCL [Paxil] 40 mg PO DAILY 06/12/16 02/13/20 Pantoprazole Sodium [Protonix] 40 mg PO DAILY 06/12/16 02/13/20 lisinopriL 40 mg PO DAILY 06/12/16 02/13/20 Atorvastatin [Lipitor] 10 mg PO DAILY 02/13/20 02/13/20 Meclizine [Antivert] 75 mg PO TID PRN 02/13/20 02/13/20 Previous Rx's Medication Instructions Recorded INSULIN ASPART (NovoLOG) [NovoLOG 0 unit SQ ACHS vial 02/13/20 (formulary)] Metoprolol Tartrate [Lopressor] 12.5 mg PO BID #0 02/13/20 metFORMIN HCL [Glucophage] 1,000 mg PO BID-W/MEALS tab 02/13/20 Allergies Allergy/AdvReac Type Severity Reaction Status Date / Time Sulfa (Sulfonamide Allergy Rash/Hives Verified 02/13/20 08:35 Antibiotics) adhesive AdvReac Rash/Hives Verified 02/13/20 08:35 latex AdvReac Rash/Hives Verified 02/13/20 08:35 Review of Systems ROS Statement: Those systems with pertinent positive or pertinent negative responses have been documented in the HPI. ROS Other: All systems not noted in ROS Statement are negative. Past Medical History Past Medical History: Diabetes Mellitus, GERD/Reflux, Hyperlipidemia, Hypertension Additional Past Medical History / Comment(s): Dizziness History of Any Multi-Drug Resistant Organisms: None Reported Past Surgical History: Appendectomy Additional Past Surgical History / Comment(s): Vein stripping right leg, hemroidectomy Past Anesthesia/Blood Transfusion Reactions: No Reported Reaction Past Psychological History: No Psychological Hx Reported Smoking Status: Never smoker Past Alcohol Use History: None Reported Past Drug Use History: None Reported - Past Family History Mother History Unknown: Yes Family Medical History: No Reported History Father Family Medical History: Cancer Additional Family Medical History / Comment(s): from Lymphoma in 2011 General Exam Limitations: no limitations General appearance: alert, in no apparent distress Head exam: Present: atraumatic Eye exam: Present: normal appearance Neck exam: Present: normal inspection Respiratory exam: Present: normal lung sounds bilaterally Cardiovascular Exam: Present: regular rate, normal rhythm, normal heart sounds GI/Abdominal exam: Present: soft, normal bowel sounds Neurological exam: Present: alert, oriented X3, CN II-XII intact, normal gait Skin exam: Present: warm, dry, intact Course Vital Signs 02/13/20 02/13/20 02/13/20 00:08 02:00 03:00 Temperature 98.1 F 97.8 F 98.6 F Pulse Rate 90 68 87 Respiratory 18 20 20 Rate Blood Pressure 138/96 144/79 148/78 O2 Sat by Pulse 97 97 97 Oximetry Medical Decision Making - Medical Decision Making 59 yo presenting with elevated glucose. non compliant with diet. second visit in 24 hours. sugar >700. negativr serum acetone. no ketones. glucose in urine. no sxs. discussed with attending Dr Estevez who is agreeable to admission for acure sugar management and parent educator consultation. family prefers and is agreeable to admission. sliding scale and IVF in place. - Lab Data Result diagrams: 02/13/20 00:36 02/13/20 06:47 Lab Results 02/13/20 02/13/20 02/13/20 Range/Units 00:16 00:36 00:36 WBC 8.5 (3.8-10.6) k/uL RBC 4.98 (4.30-5.90) m/uL Hgb 15.4 (13.0-17.5) gm/dL Hct 46.5 (39.0-53.0) % MCV 93.4 (80.0-100.0) fL MCH 30.8 (25.0-35.0) pg MCHC 33.0 (31.0-37.0) g/dL RDW 12.5 (11.5-15.5) % Plt Count 205 (150-450) k/uL Neutrophils % 66 % Lymphocytes % 22 % Monocytes % 7 % Eosinophils % 2 % Basophils % 1 % Neutrophils # 5.5 (1.3-7.7) k/uL Lymphocytes # 1.9 (1.0-4.8) k/uL Monocytes # 0.6 (0-1.0) k/uL Eosinophils # 0.2 (0-0.7) k/uL Basophils # 0.1 (0-0.2) k/uL Sodium (137-145) mmol/L Potassium (3.5-5.1) mmol/L Chloride (98-107) mmol/L Carbon Dioxide (22-30) mmol/L Anion Gap mmol/L BUN (9-20) mg/dL Creatinine (0.66-1.25) mg/dL Est GFR (CKD-EPI)AfAm (>60 ml/min/1.73 sqM) Est GFR (CKD-EPI)NonAf (>60 ml/min/1.73 sqM) Glucose (74-99) mg/dL POC Glucose (mg/dL) >600 H (75-99) mg/dL POC Glu Marketing Education Teacher ID Stephanie Chatterjee Calcium (8.4-10.2) mg/dL Phosphorus (2.5-4.5) mg/dL Magnesium (1.6-2.3) mg/dL Total Bilirubin (0.2-1.3) mg/dL AST (17-59) U/L ALT (4-49) U/L Alkaline Phosphatase (38-126) U/L Total Protein (6.3-8.2) g/dL Albumin (3.5-5.0) g/dL Urine Color Light Yellow Urine Appearance Clear (Clear) Urine pH 5.0 (5.0-8.0) Ur Specific [place] 1.027 (1.001-1.035) Urine Protein Negative (Negative) Urine Glucose (UA) 4+ H (Negative) Urine Ketones Negative (Negative) Urine Blood Negative (Negative) Urine Nitrite Negative (Negative) Urine Bilirubin Negative (Negative) Urine Urobilinogen <2.0 (<2.0) mg/dL Ur Leukocyte Esterase Negative (Negative) Acetone, Qual (Negative) 02/13/20 Range/Units 00:36 WBC (3.8-10.6) k/uL RBC (4.30-5.90) m/uL Hgb (13.0-17.5) gm/dL Hct (39.0-53.0) % MCV (80.0-100.0) fL MCH (25.0-35.0) pg MCHC (31.0-37.0) g/dL RDW (11.5-15.5) % Plt Count (150-450) k/uL Neutrophils % % Lymphocytes % % Monocytes % % Eosinophils % % Basophils % % Neutrophils # (1.3-7.7) k/uL Lymphocytes # (1.0-4.8) k/uL Monocytes # (0-1.0) k/uL Eosinophils # (0-0.7) k/uL Basophils # (0-0.2) k/uL Sodium 125 L (137-145) mmol/L Potassium 5.0 (3.5-5.1) mmol/L Chloride 89 L (98-107) mmol/L Carbon Dioxide 26 (22-30) mmol/L Anion Gap 10 mmol/L BUN 20 (9-20) mg/dL Creatinine 1.19 (0.66-1.25) mg/dL Est GFR (CKD-EPI)AfAm 77 (>60 ml/min/1.73 sqM) Est GFR (CKD-EPI)NonAf 67 (>60 ml/min/1.73 sqM) Glucose 719 H* (74-99) mg/dL POC Glucose (mg/dL) (75-99) mg/dL POC Glu Marketing Education Teacher ID Calcium 9.6 (8.4-10.2) mg/dL Phosphorus 5.4 H (2.5-4.5) mg/dL Magnesium 1.9 (1.6-2.3) mg/dL Total Bilirubin 0.8 (0.2-1.3) mg/dL AST 47 (17-59) U/L ALT 70 H (4-49) U/L Alkaline Phosphatase 130 H (38-126) U/L Total Protein 6.7 (6.3-8.2) g/dL Albumin 4.2 (3.5-5.0) g/dL Urine Color Urine Appearance (Clear) Urine pH (5.0-8.0) Ur Specific [place] (1.001-1.035) Urine Protein (Negative) Urine Glucose (UA) (Negative) Urine Ketones (Negative) Urine Blood (Negative) Urine Nitrite (Negative) Urine Bilirubin (Negative) Urine Urobilinogen (<2.0) mg/dL Ur Leukocyte Esterase (Negative) Acetone, Qual Negative (Negative) Disposition Clinical Impression: Elevated glucose Disposition: ADMITTED IP TO THIS [facility] Condition: Stable Is patient prescribed a controlled substance at d/c from ED?: No Time of Disposition: 02:01 Decision to Admit Reason: Admit from EC Decision Date: 02/13/20 Decision Time: 02:01
[2020-02-13 02:43] LABS: Glucose,Whole Blood 556 mg/dL (75-99)
[2020-02-13] MEDS ORDERED: INSULIN REGULAR 100 UNIT/ML VIAL SQ ONE (02:49)
[2020-02-13 03:44] LABS: Glucose,Whole Blood 494 mg/dL (75-99)
[2020-02-13 06:54] LABS: Glucose,Whole Blood 372 mg/dL (75-99)
[2020-02-13 07:14] LABS: African American GFR (CKD) >90 (>60 ml/min/1.73 sqM); Anion Gap 7 mmol/L; Blood Urea Nitrogen 16 mg/dL (9-20); Calcium 9.1 mg/dL (8.4-10.2); Carbon Dioxide 28 mmol/L (22-30); Chloride 96 mmol/L (98-107); Glucose 388 mg/dL (74-99); Non-African American GFR(CKD) >90 (>60 ml/min/1.73 sqM); Potassium 3.9 mmol/L (3.5-5.1); Sodium 131 mmol/L (137-145)
[2020-02-13] MEDS: INSULIN ASPART (NovoLOG) 100 UNIT/ML VIAL SQ SCH ×4 (07:56→21:31)
[2020-02-13] MEDS ORDERED: NAPROXEN 250 MG TAB PO PRN (10:25)
[2020-02-13] MEDS ORDERED: MECLIZINE 25 MG TAB PO PRN (10:25)
[2020-02-13] MEDS ORDERED: NON FORMULARY DRUG (Lovastatin 40 MG Tab) PO SCH (10:30)
[2020-02-13] MEDS: METOPROLOL TARTRATE 25 MG TAB PO SCH (11:21)
[2020-02-13] MEDS: PANTOPRAZOLE 40 MG TABLET PO SCH (11:22)
[2020-02-13] MEDS: lisinopriL 20 MG TAB PO SCH (11:22)
[2020-02-13] MEDS: ATORVASTATIN 10 MG TAB PO SCH (11:22)
[2020-02-13 12:22] LABS: Glucose,Whole Blood 305 mg/dL (75-99)
[2020-02-13] MEDS: PARoxetine 20 MG TAB PO SCH (12:24)
[2020-02-13] MEDS: ENOXAPARIN 40 MG/0.4 ML SYRINGE SQ SCH (14:44)
--- NOTE | 2020-02-13 15:35 | P.HPIM ---
History of Present Illness H&P Date: 02/13/20 Chief Complaint: -Blood pressure History of presenting complaint: This is a pleasant 59-year-old patient of Dr. Quinones. Chronic stable medical conditions include GERD, hyperlipidemia, hypertension. Patient presented to the ER with high blood pressure also was found to have very high sugars. Blood glucose was 719 but negative for serum acetone. Patient states he is having a lot of cookies. Patient is given 3 units of Regular Insulin the ER and started IV fluids. Denies any chest pain or shortness of breath. No fever no chills. A bit tired. Denies any respiratory symptoms . Review of systems: GEN.: Tired EYES: None HEENT: None NECK: None RESPIRATORY: None CARDIOVASCULAR: None GASTROINTESTINAL: None GENITOURINARY: None MUSCULOSKELETAL: None LYMPHATICS: None HEMATOLOGICAL: None PSYCHIATRY: None NEUROLOGICAL: None Past medical history to include: Diabetes, GERD, hypertension, hyperlipidemia Social history: Does not smoke cigarettes or drink alcohol. Does chew tobacco. . Not employed. Physical examination: VITAL SIGNS: 98.1, 90, 18, 138/96, 97% on room air GENERAL: [BMI 36.2, laying in bed, perspiring, tired. EYES: Pupils equal. Conjunctiva normal. HEENT: External appearance of nose and ears normal, oral cavity grossly normal. NECK: JVD not raised; masses not palpable. HEART: First and second heart sounds are normal; no edema. LUNGS: Respiratory rate normal; clear to auscultation. ABDOMEN: Soft, nontender, liver spleen not palpable, no masses palpable. PSYCH: Alert and oriented x3; mood and affect normal. NEUROLOGICAL: Cranial nerves grossly intact; no facial asymmetry, power and sensation grossly intact. LYMPHATICS: No lymph nodes palpable in the axilla and neck INVESTIGATIONS, reviewed in the clinical context: White count 8.5 hemoglobin 15.4 platelets 205 sodium 125 potassium 5 creatinine 1.19 serum glucose-719, AST 47 ALT 70 UA positive for glucose 4+, serum acetone negative Assessment: -Nonketotic hyperosmolar hyperglycemia, patient eating a lot off cookies at home. -Diabetes metastatic 2, uncontrolled with hyperglycemia -Essential hypertension -Hyperlipidemia -GERD -Obesity BMI 36.2 Plan: Patient IV fluids and increased. Lovenox due to prophylaxis. Dietitian consult. And service station helper consult. Care was discussed with the patient. Questions answered. Home medications resumed. We'll give 10 units of NPH insulin this afternoon Past Medical History Past Medical History: Diabetes Mellitus, GERD/Reflux, Hyperlipidemia, Hypertension Additional Past Medical History / Comment(s): Dizziness History of Any Multi-Drug Resistant Organisms: None Reported Past Surgical History: Appendectomy Additional Past Surgical History / Comment(s): Vein stripping right leg, hemroidectomy Past Anesthesia/Blood Transfusion Reactions: No Reported Reaction Smoking Status: Never smoker - Past Family History Mother History Unknown: Yes Family Medical History: No Reported History Father Family Medical History: Cancer Additional Family Medical History / Comment(s): from Lymphoma in 2011 Medications and Allergies Home Medications Medication Instructions Recorded Confirmed Type Lovastatin [Mevacor] 40 mg PO DAILY 06/12/16 02/13/20 History Naproxen [Naprosyn] 375 mg PO Q12HR PRN 06/12/16 02/13/20 History PARoxetine HCL [Paxil] 40 mg PO DAILY 06/12/16 02/13/20 History Pantoprazole Sodium [Protonix] 40 mg PO DAILY 06/12/16 02/13/20 History lisinopriL 40 mg PO DAILY 06/12/16 02/13/20 History Atorvastatin [Lipitor] 10 mg PO DAILY 02/13/20 02/13/20 History INSULIN ASPART (NovoLOG) [NovoLOG 0 unit SQ ACHS vial 02/13/20 Rx (formulary)] Meclizine [Antivert] 75 mg PO TID PRN 02/13/20 02/13/20 History Metoprolol Tartrate [Lopressor] 12.5 mg PO BID #0 02/13/20 02/13/20 Rx metFORMIN HCL [Glucophage] 1,000 mg PO BID-W/MEALS tab 02/13/20 Rx Allergies Allergy/AdvReac Type Severity Reaction Status Date / Time Sulfa (Sulfonamide Allergy Rash/Hives Verified 02/13/20 08:35 Antibiotics) adhesive AdvReac Rash/Hives Verified 02/13/20 08:35 latex AdvReac Rash/Hives Verified 02/13/20 08:35 Physical Exam Vitals: Vital Signs Temp Pulse Pulse Resp BP BP Pulse Ox 02/13/20 08:24 71 16 02/13/20 07:58 98.0 F 71 16 139/72 95 02/13/20 04:37 98.2 F 64 18 136/91 96 02/13/20 04:09 98.7 F 87 18 140/76 98 02/13/20 03:00 98.6 F 87 20 148/78 97 02/13/20 02:00 97.8 F 68 20 144/79 97 02/13/20 00:08 98.1 F 90 18 138/96 97 Intake and Output 02/12/20 02/13/20 02/13/20 22:59 06:59 14:59 Other: Voiding Method Toilet Toilet # Voids 0 1 Weight 121.109 kg Results CBC & Chem 7: 02/13/20 00:36 02/13/20 06:47 Labs: Abnormal Lab Results - Last 24 Hours (Table) 02/13/20 02/13/20 02/13/20 Range/Units 00:16 00:36 00:36 Sodium 125 L (137-145) mmol/L Chloride 89 L (98-107) mmol/L Glucose 719 H* (74-99) mg/dL POC Glucose (mg/dL) >600 H (75-99) mg/dL Phosphorus 5.4 H (2.5-4.5) mg/dL ALT 70 H (4-49) U/L Alkaline Phosphatase 130 H (38-126) U/L Urine Glucose (UA) 4+ H (Negative) 02/13/20 02/13/20 02/13/20 Range/Units 02:41 03:42 06:47 Sodium 131 L (137-145) mmol/L Chloride 96 L (98-107) mmol/L Glucose 388 H (74-99) mg/dL POC Glucose (mg/dL) 556 H 494 H (75-99) mg/dL Phosphorus (2.5-4.5) mg/dL ALT (4-49) U/L Alkaline Phosphatase (38-126) U/L Urine Glucose (UA) (Negative) 02/13/20 Range/Units 06:52 Sodium (137-145) mmol/L Chloride (98-107) mmol/L Glucose (74-99) mg/dL POC Glucose (mg/dL) 372 H (75-99) mg/dL Phosphorus (2.5-4.5) mg/dL ALT (4-49) U/L Alkaline Phosphatase (38-126) U/L Urine Glucose (UA) (Negative) Thrombosis Risk Factor Assmnt - Choose All That Apply Any of the Below Risk Factors Present?: Yes Each Factor Represents 1 point: Age 41-60 years, Obesity (BMI >25), Varicose veins Other Risk Factors: No Other congenital or acquired thrombophilia - If yes, enter type in comment: No Thrombosis Risk Factor Assessment Total Risk Factor Score: 3 Thrombosis Risk Factor Assessment Level: Moderate Risk
[2020-02-13 16:44] LABS: Glucose,Whole Blood 381 mg/dL (75-99)
[2020-02-13] MEDS: metFORMIN 500 MG TAB PO SCH (16:59)
[2020-02-13 21:23] LABS: Glucose,Whole Blood 263 mg/dL (75-99)
[2020-02-14] MEDS: SODIUM CHLORIDE 0.9% 1,000 ML IV SCH ×3 (02:15→15:19)
[2020-02-14 06:34] LABS: Glucose,Whole Blood 216 mg/dL (75-99)
[2020-02-14 07:29] VITALS: BP 126/69; PULSE 52; RESP 16; TEMP 97.9
[2020-02-14] MEDS: INSULIN ASPART (NovoLOG) 100 UNIT/ML VIAL SQ SCH ×2 (07:37→12:31)
[2020-02-14] MEDS: ENOXAPARIN 40 MG/0.4 ML SYRINGE SQ SCH (07:38)
[2020-02-14] MEDS: PARoxetine 20 MG TAB PO SCH (07:39)
[2020-02-14] MEDS: metFORMIN 500 MG TAB PO SCH (07:40)
[2020-02-14] MEDS: PANTOPRAZOLE 40 MG TABLET PO SCH (07:40)
[2020-02-14] MEDS: ATORVASTATIN 10 MG TAB PO SCH (07:40)
[2020-02-14] MEDS: lisinopriL 20 MG TAB PO SCH (07:40)
[2020-02-14] MEDS: METOPROLOL TARTRATE 25 MG TAB PO SCH (07:40)
[2020-02-14] MEDS ORDERED: INSULIN NPH 300 UNIT/3 ML VIAL SQ SCH (09:00)
[2020-02-14 09:28] VITALS: BMI 36.2
[2020-02-14 11:32] LABS: Glucose,Whole Blood 273 mg/dL (75-99)
--- NOTE | 2020-02-14 15:02 | P.DS ---
Providers Date of admission: 02/13/20 02:15 Expected date of discharge: 02/14/20 Attending physician: Colten Costello Primary care physician: Darryl Quinones [facility] Course: Chief Complaint: -Blood pressure History of presenting complaint: This is a pleasant 59-year-old patient of Dr. Quinones. Chronic stable medical conditions include GERD, hyperlipidemia, hypertension. Patient presented to the ER with high blood pressure also was found to have very high sugars. Blood glucose was 719 but negative for serum acetone. Patient states he is having a lot of cookies. Patient is given 3 units of Regular Insulin the ER and started IV fluids. Denies any chest pain or shortness of breath. No fever no chills. A bit tired. Denies any respiratory symptoms . Admitted with-nonketotic hyperosmolar hyperglycemia. Responded well to IV fluids. Dose of metformin increased. Dietitian and nurse educator was consulted. Today-patient feeling much better. Accu-Cheks better control. Discussed with the patient. Counseling done Physical examination: VITAL SIGNS: 97.9, 52, 16, 126/69, Lasix percent room air GENERAL: Sitting up in a chair, comfortable EYES: Pupils equal. Conjunctiva normal. NECK: JVD not raised; masses not palpable. HEART: First and second heart sounds are normal; no edema. LUNGS: Respiratory rate normal; clear to auscultation. ABDOMEN: Soft, nontender, liver spleen not palpable, no masses palpable. PSYCH: Alert and oriented x3; mood and affect normal. INVESTIGATIONS, reviewed in the clinical context: Accu-Cheks 216, 273 Admission testing White count 8.5 hemoglobin 15.4 platelets 205 sodium 125 potassium 5 creatinine 1.19 serum glucose-719, AST 47 ALT 70 UA positive for glucose 4+, serum acetone negative Assessment: -Nonketotic hyperosmolar hyperglycemia, patient eating a lot off cookies at home.-POA-improved -Diabetes metastatic 2, uncontrolled with hyperglycemia -Essential hypertension -Hyperlipidemia -GERD -Obesity BMI 36.2 Disposition: Home Patient Condition at Discharge: Stable Plan - Discharge Summary Discharge Rx Participant: No New Discharge Prescriptions: New INSULIN ASPART (NovoLOG) [NovoLOG (formulary)] 0 unit SQ ACHS vial metFORMIN HCL 1,000 mg PO BID #60 tab Continue Pantoprazole Sodium [Protonix] 40 mg PO DAILY PARoxetine HCL [Paxil] 40 mg PO DAILY Naproxen [Naprosyn] 375 mg PO Q12HR PRN PRN Reason: Pain lisinopriL 40 mg PO DAILY Lovastatin [Mevacor] 40 mg PO DAILY Meclizine [Antivert] 75 mg PO TID PRN PRN Reason: Nausea And Vomiting Atorvastatin [Lipitor] 10 mg PO DAILY Changed Metoprolol Tartrate [Lopressor] 12.5 mg PO BID #0 Discontinued metFORMIN HCL [Glucophage] 500 mg PO DAILY hydroCHLOROthiazide [Hydrodiuril] 25 mg PO DAILY Discharge Medication List Lovastatin [Mevacor] 40 mg PO DAILY 06/12/16 [History] Naproxen [Naprosyn] 375 mg PO Q12HR PRN 06/12/16 [History] PARoxetine HCL [Paxil] 40 mg PO DAILY 06/12/16 [History] Pantoprazole Sodium [Protonix] 40 mg PO DAILY 06/12/16 [History] lisinopriL 40 mg PO DAILY 06/12/16 [History] Atorvastatin [Lipitor] 10 mg PO DAILY 02/13/20 [History] INSULIN ASPART (NovoLOG) [NovoLOG (formulary)] 0 unit SQ ACHS vial 02/13/20 [Rx] Meclizine [Antivert] 75 mg PO TID PRN 02/13/20 [History] Metoprolol Tartrate [Lopressor] 12.5 mg PO BID #0 02/13/20 [Rx] metFORMIN HCL 1,000 mg PO BID #60 tab 02/14/20 [Rx] Follow up Appointment(s)/Referral(s): Darryl Quinones DO [Primary Care Provider] - 1 Week (Physicians office will call with a date and time for appointment) Patient Instructions/Handouts: Diabetic Hyperglycemia (DC) Activity/Diet/Wound Care/Special Instructions: accu chek daily - keep log
== END 2020-02-14 16:54 | disposition home or self-care (01) ==
LOC: EC 00:03 → 1SOBS 02:15
PROVIDERS: ADMIT Hospitalist; ATTEND Hospitalist
DX: E11.65 Type 2 diabetes mellitus with hyperglycemia (principal); I10 Essential (primary) hypertension; K21.9 Gastro-esophageal reflux disease without esophagitis; E78.5 Hyperlipidemia, unspecified; R42 Dizziness and giddiness; E66.9 Obesity, unspecified; Z68.36 Body mass index [BMI] 36.0-36.9, adult; F17.220 Nicotine dependence, chewing tobacco, uncomplicated; Z79.84 Long term (current) use of oral hypoglycemic drugs; Z79.1 Long term (current) use of non-steroidal anti-inflammatories (NSAID); Z79.899 Other long term (current) drug therapy; Z91.040 Latex allergy status; Z88.2 Allergy status to sulfonamides; Z91.048 Other nonmedicinal substance allergy status; Z90.49 Acquired absence of other specified parts of digestive tract; Z80.7 Family history of other malignant neoplasms of lymphoid, hematopoietic and related tissues
CPT/HCPCS: 93005; 96361 ×3; 96372 ×2; 96360; 99284; 36415; 80053; 80048; 82009; 83735; 84100; 85025; 81003; 83036; G0378 ×2; J1650 ×2

== ENCOUNTER 2020-03-27 12:22 | Emergency (ER) | payer MEDICARE, BC ==
[2020-03-27] MEDS ORDERED: SODIUM CHLORIDE 0.9% 2,000 ML IV STA (12:31)
--- NOTE | 2020-03-27 12:52 | ED ---
General Adult HPI - General Source: patient, family, RN notes reviewed Mode of arrival: wheelchair Limitations: no limitations <Marcin Bueno - Last Filed: 03/27/20 14:07> <Tiny Kan - Last Filed: 03/28/20 00:34> - General Stated complaint: elevated blood sugar Time Seen by Provider: 03/27/20 12:25 - History of Present Illness Initial comments: 59-year-old male presents emergency Department with chief complaint of hyperglycemia. Patient states that he recently saw his primary care physician who started him on insulin. He states he went to potato picker the prescription and states it was too expensive to afford. Patient states that he checked his blood sugar this morning states that it read high. He states that he feels slightly nauseated no vomiting. Patient states that he has no chest pain or shortness breath no abdominal pain. Patient states that his been diabetic for longer, recently his blood sugar has been more elevated. He was hospitalized one month ago for similar reasons. (Marcin Bueno) - Related Data Home Medications Medication Instructions Recorded Confirmed PARoxetine HCL [Paxil] 40 mg PO DAILY 06/12/16 03/27/20 Pantoprazole Sodium [Protonix] 40 mg PO DAILY 06/12/16 03/27/20 lisinopriL 40 mg PO DAILY 06/12/16 03/27/20 Atorvastatin [Lipitor] 10 mg PO HS 02/13/20 03/27/20 Meclizine [Antivert] 25 mg PO TID PRN 02/13/20 03/27/20 Ammonium Lactate Lotion 1 applic TOPICAL BID 03/27/20 03/27/20 [Lac-Hydrin 12% Lotion] Finasteride [Proscar] 5 mg PO HS 03/27/20 03/27/20 Gentamicin Sulfate [Gentamicin 1 applic TOPICAL BID 03/27/20 03/27/20 Sulfate 0.1% Oint.] Pioglitazone [Actos] 15 mg PO DAILY 03/27/20 03/27/20 Tamsulosin [Flomax] 0.4 mg PO HS 03/27/20 03/27/20 hydroCHLOROthiazide 25 mg PO DAILY 03/27/20 03/27/20 Previous Rx's Medication Instructions Recorded Metoprolol Tartrate [Lopressor] 12.5 mg PO BID #0 02/13/20 metFORMIN HCL 1,000 mg PO BID #60 tab 02/14/20 Allergies Allergy/AdvReac Type Severity Reaction Status Date / Time adhesive Allergy Rash/Hives Verified 03/27/20 13:21 latex Allergy Rash/Hives Verified 03/27/20 13:21 Sulfa (Sulfonamide Allergy Rash/Hives Verified 03/27/20 13:21 Antibiotics) Review of Systems ROS Other: All systems not noted in ROS Statement are negative. <Marcin Bueno - Last Filed: 03/27/20 14:07> ROS Other: All systems not noted in ROS Statement are negative. <Tiny Kan - Last Filed: 03/28/20 00:34> ROS Statement: Those systems with pertinent positive or pertinent negative responses have been documented in the HPI. Past Medical History Past Medical History: Diabetes Mellitus, GERD/Reflux, Hyperlipidemia, Hypertension Additional Past Medical History / Comment(s): Dizziness History of Any Multi-Drug Resistant Organisms: None Reported Past Surgical History: Appendectomy Additional Past Surgical History / Comment(s): Vein stripping right leg, hemroidectomy Past Anesthesia/Blood Transfusion Reactions: No Reported Reaction Past Psychological History: No Psychological Hx Reported Smoking Status: Never smoker Past Alcohol Use History: None Reported Past Drug Use History: None Reported - Past Family History Mother History Unknown: Yes Family Medical History: No Reported History Father Family Medical History: Cancer Additional Family Medical History / Comment(s): from Lymphoma in 2011 <MylesMarcin Acosta - Last Filed: 03/27/20 14:07> General Exam Limitations: no limitations General appearance: alert, in no apparent distress Head exam: Present: atraumatic, normocephalic, normal inspection Eye exam: Present: normal appearance, PERRL, EOMI. Absent: scleral icterus, conjunctival injection, periorbital swelling ENT exam: Present: normal exam, normal oropharynx, mucous membranes moist Neck exam: Present: normal inspection, full ROM. Absent: tenderness, meningismus, lymphadenopathy Respiratory exam: Present: normal lung sounds bilaterally. Absent: respiratory distress, wheezes, rales, rhonchi, stridor Cardiovascular Exam: Present: regular rate, normal rhythm, normal heart sounds. Absent: systolic murmur, diastolic murmur, rubs, gallop, clicks GI/Abdominal exam: Present: soft, normal bowel sounds. Absent: distended, tenderness, guarding, rebound, rigid Neurological exam: Present: alert Skin exam: Present: warm, dry, intact, normal color. Absent: rash <Marcin Bueno - Last Filed: 03/27/20 14:07> Course Vital Signs 03/27/20 03/27/20 12:36 14:27 Temperature 98.0 F 98.6 F Pulse Rate 78 68 Respiratory 18 17 Rate Blood Pressure 119/95 116/77 O2 Sat by Pulse 99 99 Oximetry Medical Decision Making - Lab Data Result diagrams: 03/27/20 12:40 03/27/20 12:40 <Marcin Bueno - Last Filed: 03/27/20 14:07> - Lab Data Result diagrams: 03/27/20 12:40 03/27/20 12:40 <Tiny Kan - Last Filed: 03/28/20 00:34> - Medical Decision Making 59-year-old male presents emergency department for hyperglycemia. Patient's hyperglycemia secondary to not having his insulin. I did contact his PCP in which they do have samples for. Patient has an appointment with private banker on Thursday. Patient blood sugar is improved vitals reviewed patient mild hyponatremic, lactic acidosis secondary to hyperglycemia. Patient has not had DKA. Patient was well hydrated. (Marcin Bueno) I was available for consultation in the emergency department. The history and physical exam were done by the midlevel provider. I was consulted for this patients care. I reviewed the case with the midlevel provider and based on their presentation of the patient, I agree with the assessment, medical decision making and plan of care as documented. Labs reviewed - pseudohyponatremia and no signs of DKA. Patient to proceed to Dr office to potato picker medications. Chart was dictated using [employer] dictation software. Attempts were made to correct any dictation errors however some typographical errors may persist. Patient was seen during a national state of emergency due to the Covid-19 pandemic. (Tiny Kan) - Lab Data Lab Results 03/27/20 03/27/20 03/27/20 Range/Units 12:40 12:40 12:40 WBC 5.7 (3.8-10.6) k/uL RBC 4.90 (4.30-5.90) m/uL Hgb 14.9 (13.0-17.5) gm/dL Hct 45.4 (39.0-53.0) % MCV 92.5 (80.0-100.0) fL MCH 30.4 (25.0-35.0) pg MCHC 32.8 (31.0-37.0) g/dL RDW 12.1 (11.5-15.5) % Plt Count 265 (150-450) k/uL Neutrophils % 58 % Lymphocytes % 29 % Monocytes % 8 % Eosinophils % 3 % Basophils % 1 % Neutrophils # 3.3 (1.3-7.7) k/uL Lymphocytes # 1.6 (1.0-4.8) k/uL Monocytes # 0.4 (0-1.0) k/uL Eosinophils # 0.2 (0-0.7) k/uL Basophils # 0.0 (0-0.2) k/uL Sodium 126 L (137-145) mmol/L Potassium 4.1 (3.5-5.1) mmol/L Chloride 91 L (98-107) mmol/L Carbon Dioxide 24 (22-30) mmol/L Anion Gap 11 mmol/L BUN 8 L (9-20) mg/dL Creatinine 0.74 (0.66-1.25) mg/dL Est GFR (CKD-EPI)AfAm >90 (>60 ml/min/1.73 sqM) Est GFR (CKD-EPI)NonAf >90 (>60 ml/min/1.73 sqM) Glucose 571 H* (74-99) mg/dL POC Glucose (mg/dL) (75-99) mg/dL POC Glu Reinstatement Clerk ID Lactic Ac Sepsis Rflx Plasma Lactic Acid Fuentes (0.7-2.0) mmol/L Calcium 9.9 (8.4-10.2) mg/dL Total Bilirubin 0.8 (0.2-1.3) mg/dL AST 30 (17-59) U/L ALT 35 (4-49) U/L Alkaline Phosphatase 190 H (38-126) U/L Total Protein 6.9 (6.3-8.2) g/dL Albumin 4.2 (3.5-5.0) g/dL Lipase 400 H (23-300) U/L Urine Color Light Yellow Urine Appearance Clear (Clear) Urine pH 6.0 (5.0-8.0) Ur Specific [place] 1.034 (1.001-1.035) Urine Protein Negative (Negative) Urine Glucose (UA) 4+ H (Negative) Urine Ketones Negative (Negative) Urine Blood Negative (Negative) Urine Nitrite Negative (Negative) Urine Bilirubin Negative (Negative) Urine Urobilinogen <2.0 (<2.0) mg/dL Ur Leukocyte Esterase Negative (Negative) Acetone, Qual Negative (Negative) 03/27/20 03/27/20 03/27/20 Range/Units 12:40 12:52 13:09 WBC (3.8-10.6) k/uL RBC (4.30-5.90) m/uL Hgb (13.0-17.5) gm/dL Hct (39.0-53.0) % MCV (80.0-100.0) fL MCH (25.0-35.0) pg MCHC (31.0-37.0) g/dL RDW (11.5-15.5) % Plt Count (150-450) k/uL Neutrophils % % Lymphocytes % % Monocytes % % Eosinophils % % Basophils % % Neutrophils # (1.3-7.7) k/uL Lymphocytes # (1.0-4.8) k/uL Monocytes # (0-1.0) k/uL Eosinophils # (0-0.7) k/uL Basophils # (0-0.2) k/uL Sodium (137-145) mmol/L Potassium (3.5-5.1) mmol/L Chloride (98-107) mmol/L Carbon Dioxide (22-30) mmol/L Anion Gap mmol/L BUN (9-20) mg/dL Creatinine (0.66-1.25) mg/dL Est GFR (CKD-EPI)AfAm (>60 ml/min/1.73 sqM) Est GFR (CKD-EPI)NonAf (>60 ml/min/1.73 sqM) Glucose (74-99) mg/dL POC Glucose (mg/dL) 533 H (75-99) mg/dL POC Glu Reinstatement Clerk Nancy Hanna Lactic Ac Sepsis Rflx Y Plasma Lactic Acid Fuentes 3.1 H* (0.7-2.0) mmol/L Calcium (8.4-10.2) mg/dL Total Bilirubin (0.2-1.3) mg/dL AST (17-59) U/L ALT (4-49) U/L Alkaline Phosphatase (38-126) U/L Total Protein (6.3-8.2) g/dL Albumin (3.5-5.0) g/dL Lipase (23-300) U/L Urine Color Urine Appearance (Clear) Urine pH (5.0-8.0) Ur Specific [place] (1.001-1.035) Urine Protein (Negative) Urine Glucose (UA) (Negative) Urine Ketones (Negative) Urine Blood (Negative) Urine Nitrite (Negative) Urine Bilirubin (Negative) Urine Urobilinogen (<2.0) mg/dL Ur Leukocyte Esterase (Negative) Acetone, Qual (Negative) 03/27/20 Range/Units 13:59 WBC (3.8-10.6) k/uL RBC (4.30-5.90) m/uL Hgb (13.0-17.5) gm/dL Hct (39.0-53.0) % MCV (80.0-100.0) fL MCH (25.0-35.0) pg MCHC (31.0-37.0) g/dL RDW (11.5-15.5) % Plt Count (150-450) k/uL Neutrophils % % Lymphocytes % % Monocytes % % Eosinophils % % Basophils % % Neutrophils # (1.3-7.7) k/uL Lymphocytes # (1.0-4.8) k/uL Monocytes # (0-1.0) k/uL Eosinophils # (0-0.7) k/uL Basophils # (0-0.2) k/uL Sodium (137-145) mmol/L Potassium (3.5-5.1) mmol/L Chloride (98-107) mmol/L Carbon Dioxide (22-30) mmol/L Anion Gap mmol/L BUN (9-20) mg/dL Creatinine (0.66-1.25) mg/dL Est GFR (CKD-EPI)AfAm (>60 ml/min/1.73 sqM) Est GFR (CKD-EPI)NonAf (>60 ml/min/1.73 sqM) Glucose (74-99) mg/dL POC Glucose (mg/dL) 356 H (75-99) mg/dL POC Glu Reinstatement Clerk ID Nancy Barr Lactic Ac Sepsis Rflx Plasma Lactic Acid Fuentes (0.7-2.0) mmol/L Calcium (8.4-10.2) mg/dL Total Bilirubin (0.2-1.3) mg/dL AST (17-59) U/L ALT (4-49) U/L Alkaline Phosphatase (38-126) U/L Total Protein (6.3-8.2) g/dL Albumin (3.5-5.0) g/dL Lipase (23-300) U/L Urine Color Urine Appearance (Clear) Urine pH (5.0-8.0) Ur Specific [place] (1.001-1.035) Urine Protein (Negative) Urine Glucose (UA) (Negative) Urine Ketones (Negative) Urine Blood (Negative) Urine Nitrite (Negative) Urine Bilirubin (Negative) Urine Urobilinogen (<2.0) mg/dL Ur Leukocyte Esterase (Negative) Acetone, Qual (Negative) Disposition Is patient prescribed a controlled substance at d/c from ED?: No Time of Disposition: 14:09 <Marcin Bueno - Last Filed: 03/27/20 14:07> <Tiny Kan - Last Filed: 03/28/20 00:34> Clinical Impression: Hyperglycemia Disposition: HOME SELF-CARE Condition: Stable Instructions (If sedation given, give patient instructions): Diabetic Hyperglycemia (ED) Additional Instructions: Please return to the Emergency Department if symptoms worsen or any other concerns. Referrals: Darryl Quinones DO [Primary Care Provider] - 1-2 days
[2020-03-27] MEDS ORDERED: INSULIN REGULAR 100 UNIT/ML VIAL IV ONE (12:56)
[2020-03-27 12:57] LABS: Glucose,Whole Blood 533 mg/dL (75-99)
[2020-03-27 12:58] LABS: Basophils % (A) 1 %; Eosinophils # (A) 0.2 k/uL (0-0.7); Eosinophils % (A) 3 %; HCT 45.4 % (39.0-53.0); HGB 14.9 gm/dL (13.0-17.5); Lymphocytes # (A) 1.6 k/uL (1.0-4.8); Lymphocytes % (A) 29 %; MCH 30.4 pg (25.0-35.0); MCHC 32.8 g/dL (31.0-37.0); MCV 92.5 fL (80.0-100.0); Mean Platelet Volume 8.1; Monocytes # (A) 0.4 k/uL (0-1.0); Monocytes % (A) 8 %; Neutrophils # (A) 3.3 k/uL (1.3-7.7); Neutrophils % (A) 58 %; Platelet Count 265 k/uL (150-450); RDW 12.1 % (11.5-15.5); WBC 5.7 k/uL (3.8-10.6)
[2020-03-27 13:06] LABS: ALT 35 U/L (4-49); AST 30 U/L (17-59); African American GFR (CKD) >90 (>60 ml/min/1.73 sqM); Albumin 4.2 g/dL (3.5-5.0); Alkaline Phosphatase 190 U/L (38-126); Anion Gap 11 mmol/L; Appearance,Urine Clear (Clear); Bilirubin,Urine Negative (Negative); Blood Urea Nitrogen 8 mg/dL (9-20); Blood,Urine Negative (Negative); Calcium 9.9 mg/dL (8.4-10.2); Carbon Dioxide 24 mmol/L (22-30); Chloride 91 mmol/L (98-107); Color,Urine Light Yellow; Glucose,Urine (UA) 4+ (Negative); Ketones,Urine Negative (Negative); Leukocyte Esterase,Urine Negative (Negative); Nitrite,Urine Negative (Negative); Non-African American GFR(CKD) >90 (>60 ml/min/1.73 sqM); Potassium 4.1 mmol/L (3.5-5.1); Protein,Urine Negative (Negative); Sodium 126 mmol/L (137-145); Specific Gravity,Urine 1.034 (1.001-1.035); Total Bilirubin 0.8 mg/dL (0.2-1.3); Total Protein 6.9 g/dL (6.3-8.2); Urobilinogen,Urine <2.0 mg/dL (<2.0)
[2020-03-27 13:14] LABS: Glucose 571 mg/dL (74-99)
[2020-03-27] MEDS ORDERED: SODIUM CHLORIDE 0.9% 1,000 ML IV SCH (13:23)
[2020-03-27 14:01] LABS: Glucose,Whole Blood 356 mg/dL (75-99)
[2020-03-27] MEDS ORDERED: INSULIN ASPART (NovoLOG) 100 UNIT/ML VIAL SQ ONE (14:06)
[2020-03-27 14:29] VITALS: BP 116/77; PULSE 68; RESP 17; TEMP 98.6
== END 2020-03-27 14:28 | disposition home or self-care (01) ==
LOC: EC 12:22
DX: E11.65 Type 2 diabetes mellitus with hyperglycemia (principal); K21.9 Gastro-esophageal reflux disease without esophagitis; E78.5 Hyperlipidemia, unspecified; I10 Essential (primary) hypertension; Z79.84 Long term (current) use of oral hypoglycemic drugs; Z79.899 Other long term (current) drug therapy; Z88.2 Allergy status to sulfonamides; Z91.040 Latex allergy status; Z91.048 Other nonmedicinal substance allergy status
CPT/HCPCS: 36415; 80053; 81003; 82009; 83605; 83690; 85025; 96360; 96361; 99285

== ENCOUNTER → 2021-04-23 | Outpatient (CLI) | payer MEDICARE | LOC: CPPFTMAIN 09:19 | PROVIDERS: ATTEND Family Medicine | DX: J45.909 Unspecified asthma, uncomplicated (principal); Z91.048 Other nonmedicinal substance allergy status; Z91.040 Latex allergy status; Z88.2 Allergy status to sulfonamides; Z87.891 Personal history of nicotine dependence | CPT/HCPCS: 94060; 94726; 94729 ==

== ENCOUNTER 2021-05-09 14:33 | Emergency (ER) | payer MEDICARE ==
[2021-05-09 14:46] VITALS: RESP 18
[2021-05-09] MEDS ORDERED: DIPH,PERTUS(ACELL)TETVAC-LF 0.5 ML VIAL IM ONE (15:25)
[2021-05-09] MEDS ORDERED: MORPHINE SULFATE 4 MG/ML SYRINGE IVP STA (15:26)
--- NOTE | 2021-05-09 15:54 | XR ---
EXAMINATION TYPE: XR pelvis AP view DATE OF EXAM: 05/09/2021 CLINICAL HISTORY: pain TECHNIQUE: Single view the pelvis is submitted. FINDINGS: No evidence for fracture, dislocation or bony lesion. Joint spaces are well-preserved. S I joints appear symmetric. IMPRESSION: 1. No acute fracture or dislocation seen. ICD 10 NO FRACTURE, INITIAL EVALUATION
--- NOTE | 2021-05-09 15:58 | XR ---
EXAMINATION TYPE: XR femur LT DATE OF EXAM: 05/09/2021 CLINICAL HISTORY: pain TECHNIQUE: Two views of the left femur are obtained. COMPARISON: None. FINDINGS: There is no acute fracture or dislocation seen of the femur. The hip and knee joints joe ear within normal limits. Soft tissue laceration noted. No radiopaque foreign body seen. IMPRESSION: There is no acute fracture or dislocation seen of the femur. ICD 10 NO FRACTURE, INITIAL EVALUATION
[2021-05-09 15:59] LABS: Basophils % (A) 1 %; Eosinophils # (A) 0.3 k/uL (0-0.7); Eosinophils % (A) 4 %; HGB 15.7 gm/dL (13.0-17.5); Lymphocytes # (A) 1.7 k/uL (1.0-4.8); Lymphocytes % (A) 27 %; MCH 31.4 pg (25.0-35.0); MCHC 33.4 g/dL (31.0-37.0); MCV 93.9 fL (80.0-100.0); Mean Platelet Volume 8.2; Monocytes # (A) 0.6 k/uL (0-1.0); Monocytes % (A) 9 %; Neutrophils # (A) 3.7 k/uL (1.3-7.7); Neutrophils % (A) 57 %; Platelet Count 212 k/uL (150-450); RDW 13.2 % (11.5-15.5); WBC 6.5 k/uL (3.8-10.6)
[2021-05-09 16:11] LABS: Partial Thromboplastin Time 23.9 sec (22.0-30.0); Prothrombin Time 10.3 sec (9.0-12.0)
[2021-05-09 16:21] LABS: ALT 31 U/L (4-49); AST 32 U/L (17-59); African American GFR (CKD) >90 (>60 ml/min/1.73 sqM); Albumin 3.9 g/dL (3.5-5.0); Alkaline Phosphatase 59 U/L (38-126); Anion Gap 10 mmol/L; Blood Urea Nitrogen 10 mg/dL (9-20); Carbon Dioxide 24 mmol/L (22-30); Chloride 102 mmol/L (98-107); Glucose 193 mg/dL (74-99); Non-African American GFR(CKD) >90 (>60 ml/min/1.73 sqM); Sodium 136 mmol/L (137-145); Total Bilirubin 0.7 mg/dL (0.2-1.3); Total Protein 6.8 g/dL (6.3-8.2)
[2021-05-09] MEDS ORDERED: LIDOCAINE 1% INJ 10MG/ML (20 ML MDV) SQ ONE (16:32)
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
[2021-05-09 19:42] VITALS: BP 151/98; PULSE 62; TEMP 98
== END 2021-05-09 19:33 | disposition home or self-care (01) ==
LOC: EC 14:33
DX: S71.112A Laceration without foreign body, left thigh, initial encounter (principal); W34.00XA Accidental discharge from unspecified firearms or gun, initial encounter; E11.9 Type 2 diabetes mellitus without complications; E78.5 Hyperlipidemia, unspecified; I10 Essential (primary) hypertension; Z79.84 Long term (current) use of oral hypoglycemic drugs; Z79.899 Other long term (current) drug therapy; Z23 Encounter for immunization
CPT/HCPCS: 36415; 86900; 86901; 80053; 85025; 85610; 85730; 86850; 72170; 73552; 90715; 99284; 96365; 96375; 90471; 12032; J2270; J0690; J2001

== ENCOUNTER 2022-01-10 12:56 | Emergency (ER) | payer MEDICARE ==
[2022-01-10 13:01] VITALS: BP 128/71; PULSE 86; RESP 20; TEMP 98
--- NOTE | 2022-01-10 13:14 | ED ---
General Adult HPI - General Chief complaint: Skin/Abscess/Foreign Body Stated complaint: lump under rt arm Time Seen by Provider: 01/10/22 13:03 Source: patient, RN notes reviewed, old records reviewed Mode of arrival: ambulatory Limitations: no limitations - History of Present Illness Initial comments: 61-year-old male with pain and swelling to the right armpit. Symptoms 7 present for the past several days. Patient had noticed a lump that was draining purulent material. No fevers. Patient is a diabetic. - Related Data Home Medications Medication Instructions Recorded Confirmed PARoxetine HCL [Paxil] 40 mg PO DAILY 06/12/16 03/27/20 Pantoprazole Sodium [Protonix] 40 mg PO DAILY 06/12/16 03/27/20 lisinopriL 40 mg PO DAILY 06/12/16 03/27/20 Atorvastatin [Lipitor] 10 mg PO HS 02/13/20 03/27/20 Meclizine [Antivert] 25 mg PO TID PRN 02/13/20 03/27/20 Ammonium Lactate Lotion 1 applic TOPICAL BID 03/27/20 03/27/20 [Lac-Hydrin 12% Lotion] Finasteride [Proscar] 5 mg PO HS 03/27/20 03/27/20 Gentamicin Sulfate [Gentamicin 1 applic TOPICAL BID 03/27/20 03/27/20 Sulfate 0.1% Oint.] Pioglitazone [Actos] 15 mg PO DAILY 03/27/20 03/27/20 Tamsulosin [Flomax] 0.4 mg PO HS 03/27/20 03/27/20 hydroCHLOROthiazide 25 mg PO DAILY 03/27/20 03/27/20 Previous Rx's Medication Instructions Recorded Metoprolol Tartrate [Lopressor] 12.5 mg PO BID #0 02/13/20 metFORMIN HCL [Glucophage] 1,000 mg PO BID #60 tab 02/14/20 Cephalexin [Keflex] 500 mg PO Q12HR 5 Days #10 cap 05/09/21 Ibuprofen [Motrin] 800 mg PO Q8H 7 Days #21 tab 05/09/21 Clindamycin [Cleocin] 300 mg PO TID 10 Days #60 cap 01/10/22 Allergies Allergy/AdvReac Type Severity Reaction Status Date / Time adhesive Allergy Rash/Hives Verified 01/10/22 13:01 latex Allergy Rash/Hives Verified 01/10/22 13:01 Sulfa (Sulfonamide Allergy Rash/Hives Verified 01/10/22 13:01 Antibiotics) Review of Systems ROS Statement: Those systems with pertinent positive or pertinent negative responses have been documented in the HPI. ROS Other: All systems not noted in ROS Statement are negative. Past Medical History Past Medical History: Diabetes Mellitus, GERD/Reflux, Hyperlipidemia, Hypertension Additional Past Medical History / Comment(s): Dizziness History of Any Multi-Drug Resistant Organisms: None Reported Past Surgical History: Appendectomy Additional Past Surgical History / Comment(s): Vein stripping right leg, hemroidectomy Past Anesthesia/Blood Transfusion Reactions: No Reported Reaction Past Psychological History: No Psychological Hx Reported Smoking Status: Never smoker Past Alcohol Use History: None Reported Past Drug Use History: None Reported - Past Family History Mother History Unknown: Yes Family Medical History: No Reported History Father Family Medical History: Cancer Additional Family Medical History / Comment(s): from Lymphoma in 2011 General Exam Limitations: no limitations General appearance: alert, in no apparent distress Head exam: Present: atraumatic, normocephalic Eye exam: Present: normal appearance, PERRL ENT exam: Present: normal exam Respiratory exam: Present: normal lung sounds bilaterally. Absent: respiratory distress, wheezes Cardiovascular Exam: Present: regular rate, normal rhythm GI/Abdominal exam: Present: soft. Absent: distended, tenderness, guarding Extremities exam: Present: other (Axilla, there is a 2 cm abscess with minimal cellulitis. There is central punctate drainage. And central fluctuance.) Neurological exam: Present: alert, oriented X3, CN II-XII intact. Absent: motor sensory deficit Psychiatric exam: Present: normal affect, normal mood Skin exam: Present: warm, dry Course Vital Signs 01/10/22 12:59 Temperature 98 F Pulse Rate 86 Respiratory 20 Rate Blood Pressure 128/71 O2 Sat by Pulse 99 Oximetry Procedures - Incision & Drainage Consent Obtained: verbal consent Indication: Assessment Site: upper extremity Size (cm): 2 I&D Cleaning Method: Alcohol Wipe Sterile Field Used?: Yes Scalpel Used: #11 Needle Aspiration Performed?: No Irrigation Performed?: No I&D Drainage Obtained: Pus, Blood Packing: Iodoform Culture Obtained?: No Patient Tolerated Procedure: well Medical Decision Making - Medical Decision Making 61-year-old male with abscess to the right axilla. There is some surrounding cellulitis change. There is central fluctuance that is able to be drained with an 11 blade. I put an iodoform packing in the pockets. Patient is instructed to apply warm compresses and follow with his [facility] care physician to ensure resolution. He started on antibiotics. Disposition Clinical Impression: Cellulitis, Abscess Disposition: HOME SELF-CARE Condition: Good Instructions (If sedation given, give patient instructions): Abscess Incision and Drainage (ED), Abscess (ED) Prescriptions: Clindamycin [Cleocin] 300 mg PO TID 10 Days #60 cap Is patient prescribed a controlled substance at d/c from ED?: No Referrals: Darryl Quinones DO [Primary Care Provider] - 1-2 days Time of Disposition: 13:11
== END 2022-01-10 13:33 | disposition home or self-care (01) ==
LOC: EC 12:56
DX: L02.411 Cutaneous abscess of right axilla (principal); E11.9 Type 2 diabetes mellitus without complications; E78.5 Hyperlipidemia, unspecified; I10 Essential (primary) hypertension; Z91.040 Latex allergy status; Z91.048 Other nonmedicinal substance allergy status; Z88.2 Allergy status to sulfonamides

== ENCOUNTER 2022-01-12 16:53 | Emergency (ER) | payer MEDICARE ==
[2022-01-12 17:30] VITALS: BP 142/90; PULSE 81; RESP 19; TEMP 98.6
[2022-01-12] MEDS ORDERED: CLINDAMYCIN 150 MG CAP PO STA (18:15)
--- NOTE | 2022-01-12 18:20 | ED ---
Skin/Abscess/FB HPI - General Chief complaint: Skin/Abscess/Foreign Body Stated complaint: Rash Time Seen by Provider: 01/12/22 17:21 Source: patient Mode of arrival: ambulatory - History of Present Illness Initial comments: This is a pleasant 61-year-old diabetic male who presents for recheck of an abscess to his right axilla. Patient had incision and draining 2 days ago here. Patient was prescribed clindamycin which is actually not taking. Patient states the pharmacy was closed by time he got there. Patient states she does have some redness surrounding the area of incision and drainage. He did have packing material in the wound which actually fell out. Patient denies any significant pain. Patient states his blood sugars are running normally. No fever. No other areas of concern. No headache, no fever or chills, no changes in vision or hearing, no sore throat or difficulty with speech, no neck pain, no chest pain or shortness of breath, no abdominal pain, no nausea or vomiting, no changes in urination or bowel movements, no numbness or tingling, no extremity pain Past medical, surgical, social, and family history reviewed. - Related Data Home Medications Medication Instructions Recorded Confirmed PARoxetine HCL [Paxil] 40 mg PO DAILY 06/12/16 03/27/20 Pantoprazole Sodium [Protonix] 40 mg PO DAILY 06/12/16 03/27/20 lisinopriL 40 mg PO DAILY 06/12/16 03/27/20 Atorvastatin [Lipitor] 10 mg PO HS 02/13/20 03/27/20 Meclizine [Antivert] 25 mg PO TID PRN 02/13/20 03/27/20 Ammonium Lactate Lotion 1 applic TOPICAL BID 03/27/20 03/27/20 [Lac-Hydrin 12% Lotion] Finasteride [Proscar] 5 mg PO HS 03/27/20 03/27/20 Gentamicin Sulfate [Gentamicin 1 applic TOPICAL BID 03/27/20 03/27/20 Sulfate 0.1% Oint.] Pioglitazone [Actos] 15 mg PO DAILY 03/27/20 03/27/20 Tamsulosin [Flomax] 0.4 mg PO HS 03/27/20 03/27/20 hydroCHLOROthiazide 25 mg PO DAILY 03/27/20 03/27/20 Previous Rx's Medication Instructions Recorded Metoprolol Tartrate [Lopressor] 12.5 mg PO BID #0 02/13/20 metFORMIN HCL [Glucophage] 1,000 mg PO BID #60 tab 02/14/20 Cephalexin [Keflex] 500 mg PO Q12HR 5 Days #10 cap 05/09/21 Ibuprofen [Motrin] 800 mg PO Q8H 7 Days #21 tab 05/09/21 Clindamycin [Cleocin] 300 mg PO TID 10 Days #60 cap 01/10/22 Clindamycin [Cleocin] 300 mg PO Q6H #80 capsule 01/12/22 Allergies Allergy/AdvReac Type Severity Reaction Status Date / Time adhesive Allergy Rash/Hives Verified 01/12/22 17:30 latex Allergy Rash/Hives Verified 01/12/22 17:30 Sulfa (Sulfonamide Allergy Rash/Hives Verified 01/12/22 17:30 Antibiotics) Review of Systems ROS Statement: Those systems with pertinent positive or pertinent negative responses have been documented in the HPI. ROS Other: All systems not noted in ROS Statement are negative. Past Medical History Past Medical History: Diabetes Mellitus, GERD/Reflux, Hyperlipidemia, Hypertension Additional Past Medical History / Comment(s): Dizziness History of Any Multi-Drug Resistant Organisms: None Reported Past Surgical History: Appendectomy Additional Past Surgical History / Comment(s): Vein stripping right leg, hemroidectomy Past Anesthesia/Blood Transfusion Reactions: No Reported Reaction Past Psychological History: No Psychological Hx Reported Smoking Status: Never smoker Past Alcohol Use History: None Reported Past Drug Use History: None Reported - Past Family History Mother History Unknown: Yes Family Medical History: No Reported History Father Family Medical History: Cancer Additional Family Medical History / Comment(s): from Lymphoma in 2011 General Exam - General Exam Comments Initial Comments: Vital signs reviewed, patient afebrile. She does not appear to be ill or toxic. General appearance: alert, in no apparent distress Head exam: Present: atraumatic, normocephalic, normal inspection Eye exam: Present: normal appearance, PERRL, EOMI. Absent: scleral icterus, conjunctival injection, periorbital swelling ENT exam: Present: normal exam, mucous membranes moist Neck exam: Present: normal inspection. Absent: tenderness, meningismus, lymphadenopathy Respiratory exam: Present: normal lung sounds bilaterally. Absent: respiratory distress, wheezes, rales, rhonchi, stridor Cardiovascular Exam: Present: regular rate, normal rhythm, normal heart sounds. Absent: systolic murmur, diastolic murmur, rubs, gallop, clicks GI/Abdominal exam: Present: soft. Absent: distended, tenderness, guarding, rebound, rigid Extremities exam: Present: normal inspection, full ROM, normal capillary refill. Absent: tenderness, pedal edema, joint swelling, calf tenderness Back exam: Present: normal inspection Neurological exam: Present: alert, oriented X3, CN II-XII intact Psychiatric exam: Present: normal affect, normal mood Skin exam: Present: warm, dry. Absent: intact (Patient has a site consistent with recent incision and drainage to the right axilla. There is some induration. Minimal purulent drainage. Minimal surrounding erythema. No ev idence of vesicles. No evidence of satellite lesions. Dermatologic examination normal otherwise.), rash Course Vital Signs 01/12/22 17:27 Temperature 98.6 F Pulse Rate 81 Respiratory 19 Rate Blood Pressure 142/90 O2 Sat by Pulse 98 Oximetry Medical Decision Making - Medical Decision Making Patient presents with abscess to the right axilla which is draining. I did emphasize the importance of antibiotics which the patient actually is not picked up yet. Patient does not appear to be ill or toxic. We'll start the patient on clindamycin here and send a prescription to a different pharmacy that is open. Counseled the patient extensively and warm compresses. Counseled to return or follow-up parameters. All questions answered. Patient was told to return to the ER for any signs or symptoms worsen. Told to return immediately if any other problems arise. All questions answered. Treatment plan discussed. Patient in agreement Every effort has been made to ensure accuracy of this dictation. However, due to the limitations of electronic medical records and dictation devices, errors in charting still occur. Fumigator And Sterilizer Dr. Dangelo Disposition Clinical Impression: Abscess of right axilla Disposition: HOME SELF-CARE Condition: Good Instructions (If sedation given, give patient instructions): Abscess (ED) Additional Instructions: Follow-up with your regular physician as directed. Return to the ER immediately if any symptoms worsen, new symptoms arise, or any other problems develop. Warm compresses for 10-15 minutes at a time at least 4 times per day. Use a clean washcloth with warm soap and water. Follow-up with your regular doctor in 48 hours for wound recheck. Take the antibiotics as directed. Prescriptions: Clindamycin [Cleocin] 300 mg PO Q6H #80 capsule Is patient prescribed a controlled substance at d/c from ED?: No Referrals: Darryl Quinones DO [Primary Care Provider] - 1-2 days Time of Disposition: 18:17
== END 2022-01-12 18:31 | disposition home or self-care (01) ==
LOC: EC 16:53
DX: L02.411 Cutaneous abscess of right axilla (principal); E11.9 Type 2 diabetes mellitus without complications; E78.5 Hyperlipidemia, unspecified; I10 Essential (primary) hypertension; K21.9 Gastro-esophageal reflux disease without esophagitis; Z79.83 Long term (current) use of bisphosphonates; Z91.030 Bee allergy status; Z91.040 Latex allergy status; Z88.2 Allergy status to sulfonamides

== ENCOUNTER 2024-05-27 09:29 | Observation (INO) | payer MEDICARE ==
[2024-05-27] MEDS: SODIUM CHLORIDE 0.9% 1,000 ML IV STA (10:30)
--- NOTE | 2024-05-27 10:52 | ED ---
Dizziness HPI - General Chief Complaint: Dizziness Stated Complaint: Dizziness Time Seen by Provider: 05/27/24 09:59 Source: patient, EMS, RN notes reviewed Mode of arrival: EMS Limitations: no limitations - History of Present Illness Initial Comments: 63-year-old male with history of vertigo, type 2 diabetes, hyperlipidemia, and hypertension presenting to the ER for dizziness since last night. This morning about 1.5 hours ago, reports they were sitting at the kitchen table and left the room to get coffee for them. When she came back, patient was lying on the floor. He stated that he lowered himself to the ground because he was dizzy. Denies fall or head injury. reports she did not hear him fall. does report a period of slurred speech however resolved when EMS arrived. Since the incident, reports that patient is altered and lethargic which is abnormal for him. He is not on blood thinners. Denies numbness, tingling, weakness of extremities. Denies chest pain or shortness of breath. - Related Data Home Medications Medication Instructions Recorded Confirmed PARoxetine HCL [Paxil] 40 mg PO DAILY 06/12/16 05/27/24 Pantoprazole Sodium [Protonix] 40 mg PO DAILY 06/12/16 05/27/24 lisinopriL 40 mg PO DAILY 06/12/16 05/27/24 Atorvastatin [Lipitor] 10 mg PO DAILY 02/13/20 05/27/24 Meclizine [Antivert] 25 mg PO TID 02/13/20 05/27/24 Finasteride [Proscar] 5 mg PO DAILY 03/27/20 05/27/24 Tamsulosin [Flomax] 0.4 mg PO DAILY 03/27/20 05/27/24 hydroCHLOROthiazide 25 mg PO DAILY 03/27/20 05/27/24 Aspirin EC [Ecotrin Low Dose] 81 mg PO DAILY 05/27/24 05/27/24 Dulaglutide [Trulicity] 1.5 mg SQ MO 05/27/24 05/27/24 Multivitamins, Thera [Multivitamin 1 tab PO DAILY 05/27/24 05/27/24 (formulary)] amLODIPine [Norvasc] 10 mg PO DAILY 05/27/24 05/27/24 metFORMIN HCL 1,000 mg PO BID 05/27/24 05/27/24 Previous Rx's Medication Instructions Recorded Metoprolol Tartrate [Lopressor] 12.5 mg PO BID #0 02/13/20 Allergies Allergy/AdvReac Type Severity Reaction Status Date / Time adhesive Allergy Rash/Hives Verified 05/27/24 13:12 latex Allergy Rash/Hives Verified 05/27/24 13:12 Sulfa (Sulfonamide Allergy Rash/Hives Verified 05/27/24 13:12 Antibiotics) Review of Systems ROS Statement: Those systems with pertinent positive or pertinent negative responses have been documented in the HPI. ROS Other: All systems not noted in ROS Statement are negative. Past Medical History Past Medical History: Diabetes Mellitus, GERD/Reflux, Hyperlipidemia, Hypertension Additional Past Medical History / Comment(s): Dizziness History of Any Multi-Drug Resistant Organisms: None Reported Past Surgical History: Appendectomy Additional Past Surgical History / Comment(s): Vein stripping right leg, hemroidectomy Past Anesthesia/Blood Transfusion Reactions: No Reported Reaction Past Psychological History: No Psychological Hx Reported Smoking Status: Never smoker Past Alcohol Use History: None Reported Past Drug Use History: None Reported - Past Family History Mother History Unknown: Yes Family Medical History: No Reported History Father Family Medical History: Cancer Additional Family Medical History / Comment(s): from Lymphoma in 2011 General Exam Limitations: no limitations General appearance: lethargic, other (A&Ox 3 will answer all questions and commands however repeatedly falls asleep on exam) Head exam: Present: atraumatic, normocephalic, normal inspection Eye exam: Present: normal appearance, PERRL, EOMI. Absent: scleral icterus, conjunctival injection, periorbital swelling ENT exam: Present: normal exam, mucous membranes moist Neck exam: Present: normal inspection. Absent: tenderness, meningismus, lymphadenopathy Respiratory exam: Present: normal lung sounds bilaterally. Absent: respiratory distress, wheezes, rales, rhonchi, stridor Cardiovascular Exam: Present: regular rate, normal rhythm, normal heart sounds. Absent: systolic murmur, diastolic murmur, rubs, gallop, clicks GI/Abdominal exam: Present: soft, normal bowel sounds. Absent: distended, tenderness, guarding, rebound, rigid Neurological exam: Present: alert, oriented X3, CN II-XII intact Psychiatric exam: Present: normal affect, normal mood Skin exam: Present: warm, dry, intact, normal color. Absent: rash Course Vital Signs 05/27/24 05/27/24 05/27/24 09:32 09:52 10:07 Temperature 97.6 F Pulse Rate 59 L 68 72 Pulse Rate [ Bilateral Retail Operations Specialist ] Pulse Rate [ Bilateral Sitting Retail Operations Specialist] Pulse Rate [ Standing Retail Operations Specialist ] Respiratory 22 20 20 Rate Blood Pressure 102/59 89/63 99/67 Blood Pressure [Right Arm Sitting] Blood Pressure [Right Arm Standing] Blood Pressure [Right Arm Supine] O2 Sat by Pulse 94 L 92 L 95 Oximetry 05/27/24 05/27/24 05/27/24 12:03 13:00 16:30 Temperature Pulse Rate 77 82 Pulse Rate [ 65 Bilateral Retail Operations Specialist ] Pulse Rate [ Bilateral Sitting Retail Operations Specialist] Pulse Rate [ Standing Retail Operations Specialist ] Respiratory 20 20 Rate Blood Pressure 116/75 124/90 Blood Pressure [Right Arm Sitting] Blood Pressure [Right Arm Standing] Blood Pressure 119/83 [Right Arm Supine] O2 Sat by Pulse 96 96 Oximetry 05/27/24 05/27/24 05/27/24 16:36 16:37 16:39 Temperature 97.4 F L Pulse Rate 73 Pulse Rate [ Bilateral Retail Operations Specialist ] Pulse Rate [ 82 Bilateral Sitting Retail Operations Specialist] Pulse Rate [ 83 Standing Retail Operations Specialist ] Respiratory 20 Rate Blood Pressure 113/79 Blood Pressure 113/77 [Right Arm Sitting] Blood Pressure 113/79 [Right Arm Standing] Blood Pressure [Right Arm Supine] O2 Sat by Pulse 96 Oximetry EKG Findings - EKG Results: EKG: interpreted by ERMD (EG reveals normal sinus rhythm with widened QRS complexes. Ventricular rate 67 bpm, AK interval 230, QRS duration 116, QT/QTc 408/424) Medical Decision Making - Medical Decision Making Was pt. sent in by a medical professional or institution (, PA, FITNESS LEADER, urgent care, hospital, or retirement...) When possible be specific @ -No Did you speak to anyone other than the patient for history (EMS, parent, family, police, friend...)? What history was obtained from this source @ - provided most of history Did you review nursing and triage notes (agree or disagree)? Why? @ -I reviewed and agree with nursing and triage notes Were old charts reviewed (outside hosp., previous admission, EMS record, old EKG, old radiological studies, urgent care reports/EKG's, retirement records)? Report findings @ -No old charts were reviewed Differential Diagnosis (chest pain, altered mental status, abdominal pain women, abdominal pain men, vaginal bleeding, weakness, fever, dyspnea, syncope, headache, dizziness, GI bleed, back pain, seizure, CVA, palpatations, mental health, musculoskeletal)? @ -Differential Dizziness: Benign paroxysmal positional Vertigo, Meniere's disease, otitis media, acoustic neuroma, vertebrobasilar insufficiency, cerebellar stroke, encephalitis, hypovolemic, arrhythmia, coronary artery syndrome, anemia, this is not meant to be an all-inclusive list EKG interpreted by me (3pts min.). @ -As above X-rays interpreted by me (1pt min.). @ -X-ray reveals patchy posterior basilar atelectasis versus developing infiltrate CT interpreted by me (1pt min.). @ -CT brain reveals no acute process, CTA reveals no evidence of dissection or significant stenosis at the carotid bifurcations, no high-grade stenosis, V4 segment right vertebral artery terminates with the right PICA, ascending aortic aneurysm measuring up to 4.1 cm, dilated pulmonary artery U/S interpreted by me (1pt. min.). @ -None done What testing was considered but not performed or refused? (CT, X-rays, U/S, labs)? Why? @ -None What meds were considered but not given or refused? Why? @ -None Did you discuss the management of the patient with other professionals (pr ofessionals i.e. , PA, FITNESS LEADER, lab, RT, psych nurse, psychologist social, property management specialist, teacher, crime prevention police officer, piano case maker)? Give summary @ -I spoke with Dr. Mcnair from [facility] who accepts admission for dizziness with neurology consultation Was smoking cessation discussed for >3mins.? @ -No Was critical care preformed (if so, how long)? @ -No Were there social determinants of health that impacted care today? How? (Homelessness, low income, unemployed, alcoholism, drug addiction, transportation, low edu. Level, literacy, decrease access to med. care, halfway, rehab)? @ -No Was there de-escalation of care discussed even if they declined (Discuss DNR or withdrawal of care, Hospice)? DNR status @ -No What co-morbidities impacted this encounter? (DM, HTN, Smoking, COPD, CAD, Cancer, CVA, ARF, Chemo, Hep., AIDS, mental health diagnosis, sleep apnea, morbid obesity)? @ -None Was patient admitted / discharged? Hospital course, mention meds given and route, prescriptions, significant lab abnormalities, going to OR and other pertinent info. @ -Admitted. This is a 63-year-old male presenting with dizziness times one 1 day. Patient had episode of slurred speech this morning which resolved before EMS arrived. Patient is acting abnormally per . Neuroexam is unremarkable. Patient is A&O x 3. Lab work remarkable for mild TARSHA and glucose 246. Patient was provided with IV fluids. CT/CTA brain negative for acute process. Chest x- ray reveals patchy posterior basilar atelectasis versus developing infiltrate. Results discussed with patient and . I spoke with Dr. Mcnair from [facility] who accepts admission for dizziness with neurology consultation. Case was discussed with my ED attending Dr. Cole. Undiagnosed new problem with uncertain prognosis? @ -No Drug Therapy requiring intensive monitoring for toxicity (Heparin, Nitro, Insulin, Cardizem)? @ -No Were any procedures done? @ -No Diagnosis/symptom? @ -Dizziness Acute, or Chronic, or Acute on Chronic? @ -Acute Uncomplicated (without systemic symptoms) or Complicated (systemic symptoms)? @ -Complicated Side effects of treatment? @ -No Exacerbation, Progression, or Severe Exacerbation? @ -No Poses a threat to life or bodily function? How? (Chest pain, USA, ND, pneumonia, PE, COPD, DKA, ARF, appy, cholecystitis, CVA, Diverticulitis, Homicidal, Suicidal, threat to staff... and all critical care pts) @ -Possibly - Lab Data Result diagrams: 05/27/24 10:53 05/27/24 10:53 Lab Results 05/27/24 05/27/24 05/27/24 Range/Units 10:53 10:53 10:53 WBC 7.1 (3.8-10.6) k/uL RBC 4.69 (4.30-5.90) m/uL Hgb 14.3 (13.0-17.5) gm/dL Hct 43.8 (39.0-53.0) % MCV 93.2 (80.0-100.0) fL MCH 30.5 (25.0-35.0) pg MCHC 32.7 (31.0-37.0) g/dL RDW 12.4 (11.5-15.5) % Plt Count 214 (150-450) k/uL MPV 8.5 Neutrophils % 85 % Lymphocytes % 9 % Monocytes % 4 % Eosinophils % 0 % Basophils % 0 % Neutrophils # 6.0 (1.3-7.7) k/uL Lymphocytes # 0.7 L (1.0-4.8) k/uL Monocytes # 0.3 (0-1.0) k/uL Eosinophils # 0.0 (0-0.7) k/uL Basophils # 0.0 (0-0.2) k/uL PT 11.1 (10.0-12.5) sec INR 1.0 (<1.2) APTT 21.6 L (22.0-30.0) sec Sodium 134 L (137-145) mmol/L Potassium 5.0 (3.5-5.1) mmol/L Chloride 103 (98-107) mmol/L Carbon Dioxide 22 (22-30) mmol/L Anion Gap 9 mmol/L BUN 38 H (9-20) mg/dL Creatinine 1.51 H (0.66-1.25) mg/dL Est GFR (CKD-EPI)AfAm 56 (>60 ml/min/1.73 sqM) Est GFR (CKD-EPI)NonAf 49 (>60 ml/min/1.73 sqM) Glucose 246 H (74-99) mg/dL Calcium 9.1 (8.4-10.2) mg/dL Total Bilirubin 0.9 (0.2-1.3) mg/dL AST 42 (17-59) U/L ALT 40 (4-49) U/L Alkaline Phosphatase 55 (38-126) U/L Troponin I (0.000-0.034) ng/mL Total Protein 7.1 (6.3-8.2) g/dL Albumin 4.6 (3.5-5.0) g/dL Influenza Type A (PCR) (Not Detectd) Influenza Type B (PCR) (Not Detectd) RSV (PCR) (Not Detectd) SARS-CoV-2 (PCR) (Not Detectd) 05/27/24 05/27/24 Range/Units 10:53 10:55 WBC (3.8-10.6) k/uL RBC (4.30-5.90) m/uL Hgb (13.0-17.5) gm/dL Hct (39.0-53.0) % MCV (80.0-100.0) fL MCH (25.0-35.0) pg MCHC (31.0-37.0) g/dL RDW (11.5-15.5) % Plt Count (150-450) k/uL MPV Neutrophils % % Lymphocytes % % Monocytes % % Eosinophils % % Basophils % % Neutrophils # (1.3-7.7) k/uL Lymphocytes # (1.0-4.8) k/uL Monocytes # (0-1.0) k/uL Eosinophils # (0-0.7) k/uL Basophils # (0-0.2) k/uL PT (10.0-12.5) sec INR (<1.2) APTT (22.0-30.0) sec Sodium (137-145) mmol/L Potassium (3.5-5.1) mmol/L Chloride (98-107) mmol/L Carbon Dioxide (22-30) mmol/L Anion Gap mmol/L BUN (9-20) mg/dL Creatinine (0.66-1.25) mg/dL Est GFR (CKD-EPI)AfAm (>60 ml/min/1.73 sqM) Est GFR (CKD-EPI)NonAf (>60 ml/min/1.73 sqM) Glucose (74-99) mg/dL Calcium (8.4-10.2) mg/dL Total Bilirubin (0.2-1.3) mg/dL AST (17-59) U/L ALT (4-49) U/L Alkaline Phosphatase (38-126) U/L Troponin I <0.012 (0.000-0.034) ng/mL Total Protein (6.3-8.2) g/dL Albumin (3.5-5.0) g/dL Influenza Type A (PCR) Not Detected (Not Detectd) Influenza Type B (PCR) Not Detected (Not Detectd) RSV (PCR) Not Detected (Not Detectd) SARS-CoV-2 (PCR) Not Detected (Not Detectd) Disposition Clinical Impression: Dizziness Disposition: ADMITTED IP TO THIS HOSP Time of Disposition: 15:50
[2024-05-27 11:15] LABS: Basophils % (A) 0 %; Eosinophils % (A) 0 %; HCT 43.8 % (39.0-53.0); HGB 14.3 gm/dL (13.0-17.5); Lymphocytes # (A) 0.7 k/uL (1.0-4.8); Lymphocytes % (A) 9 %; MCH 30.5 pg (25.0-35.0); MCHC 32.7 g/dL (31.0-37.0); MCV 93.2 fL (80.0-100.0); Mean Platelet Volume 8.5; Monocytes # (A) 0.3 k/uL (0-1.0); Monocytes % (A) 4 %; Neutrophils % (A) 85 %; Platelet Count 214 k/uL (150-450); RBC 4.69 m/uL (4.30-5.90); RDW 12.4 % (11.5-15.5); WBC 7.1 k/uL (3.8-10.6)
[2024-05-27 11:29] LABS: Prothrombin Time 11.1 sec (10.0-12.5)
[2024-05-27 11:36] LABS: ALT 40 U/L (4-49); African American GFR (CKD) 56 (>60 ml/min/1.73 sqM); Anion Gap 9 mmol/L; Blood Urea Nitrogen 38 mg/dL (9-20); Calcium 9.1 mg/dL (8.4-10.2); Carbon Dioxide 22 mmol/L (22-30); Chloride 103 mmol/L (98-107); Glucose 246 mg/dL (74-99); Non-African American GFR(CKD) 49 (>60 ml/min/1.73 sqM); Sodium 134 mmol/L (137-145); Total Bilirubin 0.9 mg/dL (0.2-1.3)
[2024-05-27 11:38] LABS: Albumin 4.6 g/dL (3.5-5.0); Total Protein 7.1 g/dL (6.3-8.2)
[2024-05-27 11:39] LABS: AST 42 U/L (17-59); Alkaline Phosphatase 55 U/L (38-126)
[2024-05-27 11:42] LABS: Partial Thromboplastin Time 21.6 sec (22.0-30.0)
--- NOTE | 2024-05-27 11:42 | XR ---
EXAMINATION TYPE: XR chest 2V DATE OF EXAM: 05/27/2024 11:05 AM COMPARISON: 06/12/2016 CLINICAL INDICATION: Male, 63 years old with history of dizziness, , TECHNIQUE: AP and lateral views FINDINGS: Heart normal size. Hazy lung densities related to overlying soft tissue. There is patchy opacity at t he posterior lower lung on the lateral view. No pleural effusion. IMPRESSION: Patchy posterior basilar atelectasis versus developing infiltrate particularly seen on the lateral vi ew. Clinically correlate. [facility], , 05/27/2024 11:39 AM
--- NOTE | 2024-05-27 13:05 | CT ---
EXAMINATION TYPE: CT brain wo con CT DLP: 1217.6 mGycm, Automated exposure control for dose reduction was used. DATE OF EXAM: 05/27/2024 12:50 PM COMPARISON: MRI brain and IAC 09/07/2017, MR IAC 07/28/2016, CT brain 06/12/2016, CTA head and neck 2016, CT brain 07/12/2015 CLINICAL INDICATION:Male, 63 years old with history of dizziness, altered mental status, DIZZINESS, A MS TECHNIQUE: Brain: Multiple axial CT images of the brain were obtained without IV contrast. . Coronal and sagitta l reformats reviewed. FINDINGS: Brain: Extra-axial spaces: No abnormal extra-axial fluid collections. Ventricular system: Within normal limits Cerebral parenchyma: No acute intraparenchymal hemorrhage or mass effect. The silva-white junction is well differentiated. Scattered hypoattenuating areas are seen within the periventricular white matte r. Cerebellum: Stable prominent posterior fossa cyst which may represent arachnoid cyst versus magna cis terna magna. Mass effect: No evidence of midline shift. Intracranial vasculature: unremarkable Soft tissues: Normal. Calvarium/osseous structures: No depressed skull fracture. Paranasal sinuses and mastoid air cells: Mild scattered paranasal sinus disease. Visualized orbits: Orbital contents are intact. IMPRESSION: 1. No acute intracranial process. 2. Nonspecific white matter changes, likely secondary to chronic small vessel ischemic disease. [facility], , 05/27/2024 1:03 PM
--- NOTE | 2024-05-27 13:40 | CT ---
EXAMINATION TYPE: CT angio head neck CT DLP: 783.4 mGycm, Automated exposure control for dose reduction was used. DATE OF EXAM: 05/27/2024 1:10 PM COMPARISON: CT brain 05/27/2024, MRI brain and IAC 09/07/2017, MR IAC 07/28/2016, CT brain 06/12/2016, CT A head and neck 06/12/2016, CT brain 07/12/2015 CLINICAL INDICATION:Male, 63 years old with history of dizziness, altered mental status; PHH, Dizzine ss, AMS TECHNIQUE: Axially acquired helical CT angiogram of the head and neck was obtained with contrast util izing 75 cc of Isovue-370 administered intravenously. Axial images are supplemented with 3D reconstru ctions which were post-processed at an independent workstation. NASCET criteria used. FINDINGS: CTA HEAD: No evidence of acute intracranial hemorrhage, mass effect, or midline shift. The ventricles, sulci, a nd cisterns are unremarkable. The visualized portions of the internal carotid arteries, middle cerebral arteries, anterior cerebral arteries, and posterior cerebral arteries are patent. Small caliber A1 segment of the left AVRIL. The basilar artery is patent. The V4 segment of the right vertebral artery appears to terminate withi n the right PICA. The left vertebral artery is dominant and patent. CTA NECK: Right Carotid System: The common carotid artery and external carotid artery are patent. The carotid bifurcation demonstrate s no evidence of hemodynamically significant stenosis. The remaining portions of the internal carotid artery demonstrate normal size without significant narrowing. Left Carotid System: The common carotid artery and external carotid artery are patent. The carotid bifurcation demonstrate s no evidence of hemodynamically significant stenosis. The remaining portions of the internal carotid artery demonstrate normal size without significant narrowing. Left vertebral artery is dominant and patent. The V4 segment of the right vertebral artery appears to terminate within the right PICA. The remaining portions are patent. There is a three-vessel aortic arch. The origins of the great vessels are patent. No evidence of hemo dynamically significant stenosis. Ascending aortic aneurysm measuring up to 4.1 cm. Dilated main pulm onary artery measuring up to 3.2 cm this could be seen with pulmonary arterial hypertension. Hypodens e left thyroid lobe 1.1 cm nodule. Mild multilevel degenerative changes of the visualized cervical sp ine. IMPRESSION: 1. No evidence of dissection of the cervical internal carotid arteries or vertebral arteries or any e vidence of significant stenosis at the carotid bifurcations. 2. No evidence of high-grade stenosis or intracranial aneurysm. 3. The V4 segment of the right vertebral artery appears to terminate within the right PICA. The left vertebral artery is dominant and patent. 4. Ascending aortic aneurysm measuring up to 4.1 cm. 5. Dilated main pulmonary artery which can be seen with pulmonary arterial hypertension. [facility], , 05/27/2024 1:37 PM
[2024-05-27] MEDS ORDERED: ONDANSETRON 4 MG/2 ML VIAL IVP PRN (15:48)
[2024-05-27] MEDS ORDERED: HYDROmorphone 1 MG/ML 1 ML SYRINGE IVP PRN (15:48)
[2024-05-27] MEDS ORDERED: ACETAMINOPHEN TAB 325 MG TAB PO PRN (15:48)
[2024-05-27] MEDS ORDERED: NALOXONE 0.4 MG/ML 1 ML VIAL IV PRN (15:48)
[2024-05-27] MEDS ORDERED: Acetaminophen-Codeine 300-30mg TAB PO PRN (15:48)
[2024-05-27] MEDS ORDERED: HYDROcodone/APAP 5-325MG 1 EACH TAB PO PRN (15:58)
[2024-05-27] MEDS ORDERED: HYDROmorphone 0.5 MG/0.5 ML SYRINGE IVP PRN (16:00)
[2024-05-27] MEDS: MECLIZINE 25 MG TAB PO SCH (16:29)
[2024-05-27] MEDS: PANTOPRAZOLE 40 MG/10 ML VIAL IVP SCH (16:29)
[2024-05-27 17:45] LABS: Amphetamine Screen,Urine Not Detected (NotDetected); Barbiturate Screen,Urine Not Detected (NotDetected); Benzodiazepines Screen,Urine Not Detected (NotDetected); Cocaine Screen,Urine Not Detected (NotDetected); Methadone Screen, Urine Not Detected (NotDetected); Opiate Screen,Urine Not Detected (NotDetected); Oxycodone Screen, Urine Not Detected (NotDetected); Phencyclidine Screen,Urine Not Detected (NotDetected); Tricyclic Antidepressant,Urine Not Detected (NotDetected); Urn Cannabinoid Scrn Detected (NotDetected)
--- NOTE | 2024-05-27 18:11 | US ---
EXAMINATION TYPE: US carotid duplex BILAT DATE OF EXAM: 05/27/2024 COMPARISON: NONE CLINICAL INDICATION: Male, 63 years old with history of stroke; Additional History: R42* Dizziness TECHNIQUE: Grayscale, color Doppler and spectral Doppler evaluation of the bilateral carotid systems and vertebral arteries. Indirect Doppler criteria was utilized. FINDINGS: EXAM MEASUREMENTS: RIGHT: Peak Systolic Velocity (PSV) cm/sec ----- Right CCA: 104 ----- Right ICA: 78.6 ----- Right ECA: 114 ICA/CCA ratio: .8 RIGHT: End Diastole cm/sec ----- Right CCA: 14.9 ----- Right ICA: 9.7 ----- Right ECA: 8.4 LEFT: Peak Systolic Velocity (PSV) cm/sec ----- Left CCA: 102 ----- Left ICA: 157 ----- Left ECA: 89.4 ICA/CCA ratio: 1.5 LEFT: End Diastole cm/sec ----- Left CCA: 14.9 ----- Left ICA: 8.2 ----- Left ECA: 13.9 VERTEBRALS (direction of flow): Right Vertebral: Antegrade Left Vertebral: Antegrade Rhythm: Normal DOCUMENTATION ENGINEER NOTES: No significant stenosis seen Color Doppler imaging shows patency with blood flow throughout the carotid artery. Spectral waveforms are within normal limits. IMPRESSION: Right: No hemodynamically significant stenosis. Left: 50-69% stenosis of the proximal and mid left internal carotid artery. Criteria for Assigning % of Stenosis / Diameter reduction (Estimation based on the indirect measurements of the internal carotid artery velocities (ICA PSV). 1. Normal (no stenosis)=ICA PSV < 125 cm/s: ratio < 2.0: ICA EDV<40 cm/s. 2. Less than 50% stenosis=ICA PSV < 125 cm/s: ratio < 2.0: ICA EDV<40 cm/s. 3. 50 to 69% stenosis=ICA PSV of 125 to 230 cm/s: ration 2.0 ? 4.0: ICA EDV 40-100 cm/s. 4. Greater than 70% stenosis to near occlusion= ICA PSV > 230 cm/s: ratio > 4.0: ICA EDV > 100 cm/s. 5. Near occlusion= ICA PSV velocities may be low or undetectable: variable ratio and ICA EDV. 6. Total occlusion=unable to detect flow. [facility], , 05/27/2024 6:08 PM
[2024-05-27] MEDS: METOPROLOL TARTRATE 12.5 MG TAB PO SCH (21:38)
--- NOTE | 2024-05-28 03:26 | HP ---
HISTORY AND PHYSICAL CHIEF COMPLAINT: Dizziness and back pain and difficulty walking. HISTORY OF PRESENT ILLNESS: This is a 63-year-old gentleman with a past medical history of multiple medical problems including hypertension, hyperlipidemia, history of prostate cancer, was complaining of some dizziness. The patient apparently had some difficulty in walking also. The patient had back pain and leg pain also. The patient apparently was lying on the floor. The patient had a syncopal episode also. There is no history of any fever, rigors, or chills at this time. The patient also complains of vomiting. PAST MEDICAL HISTORY: History of prostate cancer, history of hypertension. Rest of the history and rest of the chart is also reviewed. Diabetes mellitus. HOME MEDICATIONS: Reviewed, which include Norvasc. Dose and rest of medications reviewed. ALLERGIES: Adhesives. FAMILY HISTORY: History of lymphoma. SOCIAL HISTORY: No history of smoking or alcohol. REVIEW OF SYSTEMS: A 14-point review of systems is negative except as mentioned earlier. PHYSICAL EXAMINATION: GENERAL: The patient is alert and oriented x3. VITAL SIGNS: Pulse is 82, blood pressure 125/80, respirations 20. HEENT: Conjunctivae normal. NECK: No JVD. CARDIOVASCULAR: S1, S2. RESPIRATIONS: Breath sounds diminished at the bases. A few scattered rhonchi. ABDOMEN: Soft, obese. LEGS: No edema. No swelling. NERVOUS SYSTEM: Diffusely weak. No signs of cerebellar dysfunction. LABORATORY DATA: Glucose 246, and creatinine is 1.51. ASSESSMENT: 1. Dizziness and syncope for evaluation, rule out orthostatic hypotension, possible acute transient ischemic attack versus stroke. 2. History of back and leg pain. 3. History of prostate cancer. 4. Hyponatremia. 5. Chronic kidney disease. 6. Diabetes mellitus, type 2. 7. Hypertension. 8. Hyperlipidemia. 9. History of dizziness. RECOMMENDATIONS AND DISCUSSION: This is a 63-year-old gentleman, who presented with multiple complex medical issues, we will monitor the patient closely. Continue the current medications and continue symptomatic treatment. Otherwise, I would recommend IV fluids. We will continue to monitor urine drug screen. Otherwise, symptomatic treatment. Viral panel is negative. Prognosis extremely guarded. Further recommendations to follow. Neurology consultation. Complete neurovascular workup. Pain management. PT, OT evaluation. MMODL / IJN: [id number] /
[2024-05-28] MEDS: ASPIRIN 81 MG PO SCH (08:39)
[2024-05-28] MEDS: amLODIPine 10 MG TAB PO SCH (08:39)
[2024-05-28] MEDS: FINASTERIDE 5 MG TAB PO SCH (08:39)
[2024-05-28] MEDS: lisinopriL 20 MG TAB PO SCH (08:39)
[2024-05-28] MEDS: PARoxetine 20 MG TAB PO SCH (08:39)
[2024-05-28] MEDS: MULTIVITAMINS, THERA 1 EACH TAB PO SCH (08:39)
[2024-05-28] MEDS: ATORVASTATIN 10 MG TAB PO SCH (08:39)
[2024-05-28] MEDS: TAMSULOSIN 0.4 MG CAP.ER.24H PO SCH (08:39)
[2024-05-28] MEDS ORDERED: PANTOPRAZOLE 40 MG TABLET PO SCH (09:00)
[2024-05-28 09:12] LABS: Basophils # (A) 0.04 X 10*3/uL (0.00-0.10); Basophils % (A) 0.5 %; Eosinophils % (A) 2.7 %; HGB 13.7 g/dL (13.0-17.0); Lymphocytes # (A) 2.56 X 10*3/uL (0.90-5.00); Lymphocytes % (A) 34.3 %; MCH 31.4 pg (27.0-32.0); MCHC 33.4 g/dL (32.0-37.0); Mean Platelet Volume 10.7 FL (9.5-12.2); Monocytes # (A) 0.87 X 10*3/uL (0.20-1.00); Monocytes % (A) 11.7 %; NRBC Per 100 WBC 0 X 10*3/uL (0.00-0.01); Neutrophils # (A) 3.75 X 10*3/uL (1.80-7.70); Neutrophils % (A) 50.3 %; Platelet Count 193 X 10*3/uL (140-440); RBC 4.36 X 10*6/uL (4.40-5.60); RDW 12.2 % (11.5-14.5); WBC 7.46 X 10*3/uL (4.50-10.00)
[2024-05-28 09:47] LABS: ALT 35 U/L (10-49); AST 26 U/L (14-35); Albumin 3.9 g/dL (3.8-4.9); Alkaline Phosphatase 70 U/L (41-126); BUN/Creat Ratio 20.22 Ratio (12.00-20.00); Blood Urea Nitrogen 18.2 mg/dL (9.0-27.0); Calcium 8.9 mg/dL (8.7-10.3); Carbon Dioxide 25.1 mmol/L (21.6-31.8); Chloride 104 mmol/L (96-109); Globulin 2.3 g/dL (1.6-3.3); Glucose 165 mg/dL (70-110); Sodium 140 mmol/L (135-145); Total Bilirubin 0.4 mg/dL (0.3-1.2); Total Protein 6.2 g/dL (6.2-8.2)
--- NOTE | 2024-05-28 11:34 | CA ---
Transthoracic Echo Report Name: Matias Ortiz Age: 63 Gender: M : 1960 Exam Date: 05/28/2024 07:28 Exam Location: [facility] Ht (in): 72 Wt (lb): 280 Ordering Physician: Glenn Mcnair MD Attending/Referring Phys: Foreclosure Specialist Lashaun Dickens RDCS Procedure CPT: Indications: stroke Cardiac Hx: Technical Quality: Technically difficult study Contrast 1: Definity Total Dose (mL): 1 Contrast 2: Total Dose (mL): MEASUREMENTS (Male / Female) Normal Values 2D ECHO LV Diastolic Diameter PLAX 6.0 cm 4.2 - 5.9 / 3.9 - 5.3 cm LV Systolic Diameter PLAX 4.0 cm IVS Diastolic Thickness 0.9 cm 0.6 - 1.0 / 0.6 - 0.9 cm LVPW Diastolic Thickness 1.0 cm 0.6 - 1.0 / 0.6 - 0.9 cm LV Relative Wall Thickness 0.3 LVOT Diameter 2.6 cm LV Diastolic Volume MOD BP 100.2 cm??? 67 - 155 / 56 - 104 cm??? LV Systolic Volume MOD BP 46.2 cm??? 22 - 58 / 19 - 49 cm??? LV Ejection Fraction MOD BP 53.9 % >= 55 % LV Cardiac Index MOD BP 959.3 cm???/min???m??? LV Diastolic Volume MOD 4C 108.0 cm??? LV Systolic Volume MOD 4C 48.6 cm??? LV Ejection Fraction MOD 4C 55.0 % LV Cardiac Index MOD 4C 1054.4 cm???/min???m??? LV Diastolic Length 4C 8.5 cm LV Systolic Length 4C 7.7 cm LV Diastolic Volume MOD 2C 87.7 cm??? LV Systolic Volume MOD 2C 39.4 cm??? LV Ejection Fraction MOD 2C 55.1 % LV Cardiac Index MOD 2C 858.8 cm???/min???m??? LV Diastolic Length 2C 7.9 cm LV Systolic Length 2C 6.9 cm LA Volume 79.4 cm??? 18 - 58 / 22 - 52 cm??? LA Volume Index 30.7 cm???/m??? 16 - 28 cm???/m??? Ascending Aorta Diameter 4.3 cm DOPPLER AV Peak Velocity 100.7 cm/s AV Peak Gradient 4.1 mmHg AV Mean Velocity 61.2 cm/s AV Mean Gradient 1.7 mmHg AV Velocity Time Integral 16.8 cm LVOT Peak Velocity 102.4 cm/s LVOT Peak Gradient 4.2 mmHg LVOT Velocity Time Integral 20.5 cm LVOT Stroke Volume 110.3 cm??? LVOT Stroke Volume Index 44.9 ml/m??? LVOT Cardiac Index 1959.4 cm???/min???m??? AV Area Cont Eq vti 6.6 cm??? AV Area Cont Eq pk 5.5 cm??? MV Area PHT 3.2 cm??? Mitral E Point Velocity 80.9 cm/s Mitral A Point Velocity 40.3 cm/s Mitral E to A Ratio 2.0 MV Deceleration Time 239.1 ms PV Peak Velocity 82.7 cm/s PV Peak Gradient 2.7 mmHg FINDINGS Left Ventricle Left ventricular ejection fraction is estimated at 50-55 %. Mildly decreased left ventricular ejection fraction. Left ventricular cavity size normal. No obvious regional wall motion abnormalities. Right Ventricle Right ventricular dilatation with normal function. Unable to estimate the right ventricular systolic pressure. Right Atrium Right atrium not well visualized. Left Atrium Mildly increased left atrial volume. Mildly increased left atrial area. Mitral Valve Structurally normal mitral valve. No mitral stenosis, regurgitation or prolapse. Aortic Valve Trileaflet aortic valve. No aortic valve stenosis or regurgitation. Tricuspid Valve Structurally normal tricuspid valve. No tricuspid stenosis. No tricuspid regurgitation. Pulmonic Valve Pulmonic valve not well visualized. No pulmonic stenosis. No pulmonic regurgitation. Pericardium No pericardial effusion. Aorta Aortic annulus normal. Mildly dilated proximal ascending aorta (tube). CONCLUSIONS Normal LV function Previewed by: Dr. Wagner Adair MD (Electronically Signed) Final Date: 28 May 2024 11:33
[2024-05-28] MEDS: SODIUM CHLORIDE 0.9% 1,000 ML IV SCH (16:48)
[2024-05-29 07:35] VITALS: BP 147/76; PULSE 61; RESP 18; TEMP 97.6
--- NOTE | 2024-05-29 09:20 | P.CNNES ---
History of Present Illness Consult date: 05/28/24 Requesting physician: Hilda Hdez Reason for Consult: Dizziness History of Present Illness: Patient is a 63-year-old male came to the hospital by ambulance yesterday at 9:29 AM for dizziness. Patient states he has history of spells off and on for about 30 years. It happens when he is doing something significant or working then it comes on. He starts getting sweaty and it last for about 10 minutes. He does get nausea and vomiting. As an example, he was trying to move a washer or dryer and it came on. Other times it happens when he is cutting the grass. It does not happen every time that he is active, sometimes. Never happens at rest. The vertigo does not occur when he is rolling over in the bed, getting up or looking down, bending over or standing up. It is classical spinning. He denies any tinnitus although he does have loss of hearing on the right side. Denies any upper respiratory infection or any feeling pops or pressure in the ear. Patient does not remember seeing ENT specialist in the past. He states that he came to the hospital because after he had this episode, and he lowered himself to the ground and laid down. He could not get up was "out of it". His called machine slat basket maker to pick him up. He does take meclizine every day otherwise he is very dizzy. Patient denies any focal numbness, tingling, focal weakness, slurred speech facial droop any problem with the vision or any other focal symptoms. EMS flowsheet not available in the chart. Vital signs on arrival blood pressure 102/59, pulse rate 59 temperature 97.6. Repeat blood pressure 89/63. Patient had orthostatics checked which was negative with supine blood pressure 129/79, sitting 131/81 and standing 130/76, pulse rate was 62, 51 and 62 respectively. Blood test shows normal CBC, PT PTT, sodium 134 potassium 5.0, BUN 38 creatinine 1.51. Hepatic panel is normal, troponin negative, urine drug screen positive for marijuana. Influenza, RSV and coronavirus PCR negative. Repeat renal functions are normal BUN 18.[address] head showed no acute intracranial process. Nonspecific white matter changes, likely secondary to his chronic small vessel ischemic change. I personally reviewed CT head, agree with the findings. Visualized paranasal sinuses and external auditory canals are clear. Chest x-ray showed patchy posterior basilar atelectasis versus developing infiltrate particularly seen on the lateral view. Correlate clinically. EKG showed sinus rhythm with first-degree AV block Patient has hypertension, diabetes, he chews tobacco. Home medication includes Protonix, Paxil, lisinopril, Lipitor, meclizine, metoprolol, Proscar, HCTZ 25 mg, Flomax, Trulicity, aspirin 81 mg metformin amlodipine and multivitamin. Review of Systems All pertinent positive and negatives mentioned in the HPI. Past Medical History Past Medical History: Diabetes Mellitus, GERD/Reflux, Hyperlipidemia, Hypertension Additional Past Medical History / Comment(s): Dizziness History of Any Multi-Drug Resistant Organisms: None Reported Past Surgical History: Appendectomy Additional Past Surgical History / Comment(s): Vein stripping right leg, hemroidectomy Past Anesthesia/Blood Transfusion Reactions: No Reported Reaction Past Psychological History: No Psychological Hx Reported Smoking Status: Never smoker Past Alcohol Use History: None Reported Additional Past Alcohol Use History / Comment(s): Pt states he chews tobacco Past Drug Use History: None Reported - Past Family History Mother History Unknown: Yes Family Medical History: No Reported History Father Family Medical History: Cancer Additional Family Medical History / Comment(s): from Lymphoma in 2011 Medications and Allergies Home Medications Medication Instructions Recorded Confirmed Type PARoxetine HCL [Paxil] 40 mg PO DAILY 06/12/16 05/27/24 History Pantoprazole Sodium [Protonix] 40 mg PO DAILY 06/12/16 05/27/24 History lisinopriL 40 mg PO DAILY 06/12/16 05/27/24 History Atorvastatin [Lipitor] 10 mg PO DAILY 02/13/20 05/27/24 History Meclizine [Antivert] 25 mg PO TID 02/13/20 05/27/24 History Metoprolol Tartrate [Lopressor] 12.5 mg PO BID #0 02/13/20 05/27/24 Rx Finasteride [Proscar] 5 mg PO DAILY 03/27/20 05/27/24 History Tamsulosin [Flomax] 0.4 mg PO DAILY 03/27/20 05/27/24 History hydroCHLOROthiazide 25 mg PO DAILY 03/27/20 05/27/24 History Aspirin EC [Ecotrin Low Dose] 81 mg PO DAILY 05/27/24 05/27/24 History Dulaglutide [Trulicity] 1.5 mg SQ MO 05/27/24 05/27/24 History Multivitamins, Thera [Multivitamin 1 tab PO DAILY 05/27/24 05/27/24 History (formulary)] amLODIPine [Norvasc] 10 mg PO DAILY 05/27/24 05/27/24 History metFORMIN HCL 1,000 mg PO BID 05/27/24 05/27/24 History Allergies Allergy/AdvReac Type Severity Reaction Status Date / Time adhesive Allergy Rash/Hives Verified 05/27/24 13:12 latex Allergy Rash/Hives Verified 05/27/24 13:12 Sulfa (Sulfonamide Allergy Rash/Hives Verified 05/27/24 13:12 Antibiotics) Physical Examination - Vital Signs Vital Signs: Vital Signs Temp Pulse Pulse Pulse Pulse Pulse Resp 05/28/24 14:33 98.9 F 53 L 17 05/28/24 08:38 64 05/28/24 07:00 97.8 F 53 L 61 66 16 05/28/24 00:27 98.4 F 51 L 62 62 18 05/27/24 21:32 98.0 F 74 18 BP BP BP BP Pulse Ox 05/28/24 14:33 134/66 97 05/28/24 08:38 05/28/24 07:00 128/73 117/77 115/73 95 05/28/24 00:27 131/81 134/76 129/79 99 05/27/24 21:32 136/76 97 Intake and Output 05/28/24 05/28/24 05/28/24 06:59 14:59 22:59 Intake Total 236 Balance 236 Intake: Oral 236 Other: Voiding Method Toilet Toilet Urinal Urinal # Voids 1 3 Patient is a late middle-aged male, very pleasant, in no acute distress. Patient is alert awake oriented to time place and person. Speech and language functions are normal. Patient can name and repeat very well. No aphasia or dysarthria. Attention, concentration and fund of knowledge is adequate. On cranial nerve examination, pupils are equal, round and reacting to light, visual louise are full on confrontation, with no neglect on double simultaneous stimulation. Extraocular muscles are intact with no nystagmus. Face is symmetric, tongue protrudes to the midline. Palatal elevation and sensation normal, hearing and shoulder shrug normal, facial sensation normal. On muscle strength testing, there is no pronator drift and the strength is normal in arms and legs distally and proximally. Deep tendon reflexes are symmetric and plantars downgoing. Sensory to touch is equal with no neglect on double simultaneous stimulation. Cerebellar function showed no ataxia for [id number] testing. No dysdi adochokinesia. No ataxia for [id number] testing on either side. Tone and bulk of muscles normal. Gait deferred.. On general examination, there is no carotid bruit or murmur, S1-S2 audible. Chest is clear on consultation. Abdomen is soft nontender. No organomegaly, bowel sounds present. Peripheral pulses are present. No peripheral edema. Results - Laboratory Findings CBC and BMP: 05/28/24 06:08 05/28/24 06:08 Abnormal Lab Findings: Abnormal Labs 05/27/24 05/27/24 05/27/24 10:53 10:53 10:53 RBC Lymphocytes # 0.7 L APTT 21.6 L Sodium 134 L BUN 38 H Creatinine 1.51 H BUN/Creatinine Ratio Glucose 246 H U Marijuana (THC) Screen 05/27/24 05/28/24 05/28/24 16:01 06:08 06:08 RBC 4.36 L Lymphocytes # APTT Sodium BUN Creatinine BUN/Creatinine Ratio 20.22 H Glucose 165 H U Marijuana (THC) Screen Detected H Assessment and Plan Assessment: * Recurrent, longstanding history of episodic vertigo, off and on for 30 years. Each episode last for about 10 minutes. Probable due to peripheral vestibular dysfunction. Rule out Mnire's disease. * Hypertension * Diabetes * Chews tobacco * Marijuana use Plan: * Patient is doing better. Continue meclizine and HCTZ. * Recommend patient follow-up with ENT specialist outpatient to rule out peripheral vestibular dysfunction/Mnire's disease. * CTA of head and neck revealed no evidence of dissection of the cervical internal carotid arteries or vertebral arteries or any evidence of significant stenosis at the carotid bifurcation. No evidence of high-grade stenosis or i ntracranial aneurysm. The V4 segment of the right vertebral artery appears to terminate within the right PICA. The left vertebral artery is dominant and patent. Ascending aortic aneurysm measuring up to 4.1 cm. Dilated main pulmonary artery. Regarding AAA and dilated pulmonary artery, we will defer to IM. * Carotid Doppler revealed 50 to 69% stenosis of the proximal and mid left ICA. No significant stenosis on the right side. Antegrade flow in both vertebral arteries. Vascular surgery on board. * 2D echo revealed normal left ventricular function with EF 50 to 55%. Mildly decreased LV EF. No obvious regional wall motion abnormalities. Mildly increased left atrial volume. No valvular abnormalities. Cardiology on board. * Orthostatics checked was negative with supine blood pressure 129/79, sitting 131/81 and standing 130/76. * Continue aspirin 81 mg and Lipitor 10 mg. * Hemoglobin A1c 6.8, well-controlled. * B12, folate, TSH * Recommend tobacco cessation. * Thank you for the consult
--- NOTE | 2024-05-29 22:14 | P.PN ---
Subjective Progress Note Date: 05/29/24 Patient was seen for a follow-up. Patient is walking around in no distress. Vertigo has resolved. Wants to go home. Objective - Vital Signs Vital signs: Vital Signs Temp 97.6 F 05/29/24 07:00 Pulse 61 05/29/24 07:00 Resp 18 05/29/24 07:00 BP 147/76 05/29/24 07:00 Pulse Ox 95 05/29/24 07:00 FiO2 Intake & Output 05/28/24 05/29/24 05/29/24 18:59 06:59 18:59 Intake Total 236 240 Balance 236 240 Intake: Oral 236 240 Other: Voiding Method Toilet Toilet Toilet Urinal Urinal Urinal # Voids 3 2 - Exam Nonfocal. - Labs CBC & Chem 7: 05/28/24 06:08 05/28/24 06:08 Labs: Abnormal Lab Results - Last 24 Hours (Table) 05/28/24 Range/Units 06:08 Hemoglobin A1c 6.8 H (<=6.0) % Assessment and Plan Assessment: * Recurrent, longstanding history of episodic vertigo, off and on for 30 years. Each episode last for about 10 minutes. Probable due to peripheral vestibular dysfunction. Rule out Mnire's disease. * Hypertension * Diabetes * Chews tobacco * Marijuana use Plan: * Patient is doing better. Continue meclizine and HCTZ. * Recommend patient follow-up with ENT specialist outpatient to rule out peripheral vestibular dysfunction/Mnire's disease. * CTA of head and neck revealed no evidence of dissection of the cervical internal carotid arteries or vertebral arteries or any evidence of significant stenosis at the carotid bifurcation. No evidence of high-grade stenosis or intracranial aneurysm. The V4 segment of the right vertebral artery appears to terminate within the right PICA. The left vertebral artery is dominant and patent. Ascending aortic aneurysm measuring up to 4.1 cm. Dilated main pulmonary artery. Regarding AAA and dilated pulmonary artery, we will defer to IM. * Carotid Doppler revealed 50 to 69% stenosis of the proximal and mid left ICA. No significant stenosis on the right side. Antegrade flow in both vertebral arteries. Vascular surgery on board. * 2D echo revealed normal left ventricular function with EF 50 to 55%. Mildly decreased LV EF. No obvious regional wall motion abnormalities. Mildly increased left atrial volume. No valvular abnormalities. Cardiology on board. * Orthostatics checked was negative with supine blood pressure 129/79, sitting 131/81 and standing 130/76. * Continue aspirin 81 mg and Lipitor 10 mg. * Hemoglobin A1c 6.8, well-controlled. * B12 455, folate 19.50, TSH 0.672 * Recommend tobacco cessation. * Neurologically clear for discharge.
[2024-05-30] MEDS ORDERED: NON FORMULARY DRUG (Dulaglutide [Trulicity] 1.5 MG/0.5 ML Each) SQ SCH (09:00)
--- NOTE | 2024-05-30 09:09 | PN ---
PROGRESS NOTE DATE OF SERVICE: 05/28/2024 SUBJECTIVE: This 63-year-old gentleman who was admitted with dizziness and syncope is being closely monitored at this time. The patient is being asked for Neurology and Cardiology consultation. No chest pain. No palpitation: No fever. OBJECTIVE: VITAL SIGNS: Pulse is 53, blood pressure 134/46, mild orthostatic changes. HEENT: Conjunctivae normal. NECK: No JVD. CARDIOVASCULAR: S1, S2. RESPIRATIONS: n LABORATORY DATA: Reviewed. ASSESSMENT: 1. Dizziness, syncope, mild orthostatic hypotension, rule out acute transient ischemic attack versus stroke. 2. History of back and leg pain. 3. History of prostate cancer. 4. Hyponatremia. 5. Chronic kidney disease. 6. Diabetes mellitus type 2. 7. Hypertension. 8. Hyperlipidemia. 9. History of dizziness. RECOMMENDATIONS AND DISCUSSION: Recommend to continue current management and treatment, otherwise increase ambulation. Closely monitor. Continue the orthostatic blood pressure. IV fluids. Further recommendations to follow. MMBILLYL / IJN: [id number] / CYNTHIA
--- NOTE | 2024-05-30 09:11 | CONS ---
CONSULTATION CHIEF COMPLAINT: Dizziness. HISTORY OF PRESENT ILLNESS: This is a 63-year-old gentleman with history of coronary artery disease, hypertension, dyslipidemia, vertigo, and diabetes, comes to hospital complaining of dizziness and vertigo. He has orthostatic changes, stable hemodynamically, saturating well. This morning, the dizziness had resolved. PAST MEDICAL HISTORY: Significant for hypertension, diabetes. MEDICATIONS: Include: 1. Trulicity. 2. Aspirin. 3. Norvasc. 4. Flomax. 5. Lisinopril. 6. Hydrochlorothiazide. 7. Protonix. 8. Lopressor. 9. Antivert. 10.Proscar. 11.Lipitor. ALLERGIES: Latex and sulfa. FAMILY HISTORY: Negative for premature coronary artery disease. SOCIAL HISTORY: Denies current smoking. REVIEW OF SYSTEMS: review of systems has been performed. Pertinents are as documented. ASSESSMENT: 1. Vertigo. 2. Dizziness with orthostatic hypotension. 3. Hks-rnlfgtp-cfjtrpzhi diabetes. 4. Hypertension. PLAN: I am going to continue him on his current medications. I talked to him about postural changes and also advised him on compression stockings. No other cardiac workup at this time. He had an echo that showed normal LV function. Upon discharge, he can follow up with Cardiology and further workup can be pursued as outpatient. MMBILLYL / NIKN: [id number] /
--- NOTE | 2024-05-31 12:53 | P.DS ---
Providers Date of admission: 05/27/24 14:47 Expected date of discharge: 05/29/24 Attending physician: Glenn Mcnair Consults: 05/27/24 15:48 Consult Physician Urgent Consulting Provider: Cedrick Lawler Consult Reason/Comments: Dizziness Do you want consulting provider notified?: Yes 05/28/24 16:36 Consult Physician Routine Consulting Provider: Wagner Adair Consult Reason/Comments: syncope?? Do you want consulting provider notified?: Yes 05/28/24 16:37 Consult Physician Routine Consulting Provider: Tereza Molina Consult Reason/Comments: left carotid stenosis Do you want consulting provider notified?: Yes Primary care physician: Stated None Hospital Course: Final diagnosis Dizziness, syncope, mild orthostatic hypotension, ruled out TIA History of back and leg pain History of prostate cancer Hyponatremia, improving Chronic kidney disease Diabetes mellitus, type II Hypertension Hyperlipidemia History of dizziness Obesity with a BMI 38.0 GI prophylaxis DVT prophylaxis Full code Discharge disposition Patient is being discharged in a stable condition with guarded prognosis to home. Patient will follow-up with primary care provider in [place] in the outpatient setting upon discharge. Patient is to continue with current medications and outpatient follow-up with cardiology and neurology as scheduled. Patient to follow-up with ENT outpatient. Total time taken is greater than 35 minutes. Hospital course This is a 63-year-old male who was recently admitted with dizziness and syncope noted to have mild orthostatic hypotension being closely monitored with cardiology and neurology. TIA ruled out and patient will need outpatient follow-up with cardiology and neurology in the outpatient setting. Patient reports to feeling improved and would like to go home. Please refer to consultation notes for further HPI. Currently no reports of chest pain, shortness of breath, or palpitations. Patient is afebrile. No reports of nausea or vomiting and patient is tolerating diet. Patient will be discharged home today. Guarded prognosis and high risk for readmissions given patient's chronic comorbidities Physical exam: Gen: This is a 63-year-old male who is awake, alert and oriented x 3, well- developed, elderly appearing, obese HEENT: Head is atraumatic, normocephalic. Pupils equal, round. Sclerae is anicteric. NECK: Supple. No JVD. No lymphadenopathy. No thyromegaly. LUNGS: Diminished breath sounds bilaterally otherwise clear to auscultation. No wheezes or rhonchi. No intercostal retractions. HEART: S1, S2 are muffled ABDOMEN: Soft. Bowel sounds are present. No masses. No tenderness. EXTREMITIES: No pedal edema. No calf tenderness. NEUROLOGICAL: Patient is awake, alert and oriented x3. Cranial nerves 2 through 12 are grossly intact. Please refer to medication reconciliation sheet for a list of medications. The impression and plan of care has been dictated by Stephanie Aguilar, Nurse Practitioner as directed. Dr. Xu MD I have performed a history and examination and MDM of this patient, discussed the same with the dictator, and agree with the dictator's assessment and plan as written ,documented as a scribe. Based on total visit time, I have performed more than 50% of the visit. Patient Condition at Discharge: Fair Plan - Discharge Summary New Discharge Prescriptions: New Acetaminophen Tab [Tylenol] 650 mg PO Q6HR PRN tab PRN Reason: Mild Pain Or Fever > 100.5 Continue Pantoprazole Sodium [Protonix] 40 mg PO DAILY PARoxetine HCL [Paxil] 40 mg PO DAILY lisinopriL 40 mg PO DAILY Meclizine [Antivert] 25 mg PO TID Atorvastatin [Lipitor] 10 mg PO DAILY Metoprolol Tartrate [Lopressor] 12.5 mg PO BID #0 Finasteride [Proscar] 5 mg PO DAILY hydroCHLOROthiazide 25 mg PO DAILY Tamsulosin [Flomax] 0.4 mg PO DAILY Dulaglutide [Trulicity] 1.5 mg SQ MO Aspirin EC [Ecotrin Low Dose] 81 mg PO DAILY metFORMIN HCL 1,000 mg PO BID Multivitamins, Thera [Multivitamin (formulary)] 1 tab PO DAILY amLODIPine [Norvasc] 10 mg PO DAILY Discharge Medication List PARoxetine HCL [Paxil] 40 mg PO DAILY 06/12/16 [History] Pantoprazole Sodium [Protonix] 40 mg PO DAILY 06/12/16 [History] lisinopriL 40 mg PO DAILY 06/12/16 [History] Atorvastatin [Lipitor] 10 mg PO DAILY 02/13/20 [History] Meclizine [Antivert] 25 mg PO TID 02/13/20 [History] Metoprolol Tartrate [Lopressor] 12.5 mg PO BID #0 02/13/20 [Rx] Finasteride [Proscar] 5 mg PO DAILY 03/27/20 [History] Tamsulosin [Flomax] 0.4 mg PO DAILY 03/27/20 [History] hydroCHLOROthiazide 25 mg PO DAILY 03/27/20 [History] Aspirin EC [Ecotrin Low Dose] 81 mg PO DAILY 05/27/24 [History] Dulaglutide [Trulicity] 1.5 mg SQ MO 05/27/24 [History] Multivitamins, Thera [Multivitamin (formulary)] 1 tab PO DAILY 05/27/24 [History] amLODIPine [Norvasc] 10 mg PO DAILY 05/27/24 [History] metFORMIN HCL 1,000 mg PO BID 05/27/24 [History] Acetaminophen Tab [Tylenol] 650 mg PO Q6HR PRN tab 05/29/24 [Rx] Follow up Appointment(s)/Referral(s): Hank Marley MD [STAFF PHYSICIAN] - 1 Week Estefany Yu NPC [REFERRING] - 1 Week Blanca Holden MD [REFERRING] - 1 Week Wagner Adair MD [STAFF PHYSICIAN] - 1 Week Patient Instructions/Handouts: Syncope (DC), Benign Paroxysmal Positional Vertigo (DC), Dizziness (ED) Activity/Diet/Wound Care/Special Instructions: Continue with medications as prescribed Follow-up with primary care provider on discharge Follow-up cardiology outpatient Follow-up with neurology outpatient Continue taking medications as prescribed and continue with meclizine Discharge/Stand Alone Forms: Area PCPs Discharge Disposition: HOME SELF-CARE
== END 2024-05-29 16:36 | disposition home or self-care (01) ==
LOC: EC 09:29 → 6NMEDSUR 14:47
PROVIDERS: ADMIT Hospitalist; ATTEND Hospitalist
DX: I95.1 Orthostatic hypotension (principal); E87.1 Hypo-osmolality and hyponatremia; N17.9 Acute kidney failure, unspecified; I65.22 Occlusion and stenosis of left carotid artery; I44.0 Atrioventricular block, first degree; I71.21 Aneurysm of the ascending aorta, without rupture; I12.9 Hypertensive chronic kidney disease with stage 1 through stage 4 chronic kidney disease, or unspecified chronic kidney disease; N18.9 Chronic kidney disease, unspecified; E11.22 Type 2 diabetes mellitus with diabetic chronic kidney disease; I25.10 Atherosclerotic heart disease of native coronary artery without angina pectoris; E78.5 Hyperlipidemia, unspecified; H91.91 Unspecified hearing loss, right ear; F17.220 Nicotine dependence, chewing tobacco, uncomplicated; F12.90 Cannabis use, unspecified, uncomplicated; E66.9 Obesity, unspecified; Z68.38 Body mass index [BMI] 38.0-38.9, adult; M54.9 Dorsalgia, unspecified; M79.606 Pain in leg, unspecified; R26.2 Difficulty in walking, not elsewhere classified; Z79.82 Long term (current) use of aspirin; Z79.85 Long-term (current) use of injectable non-insulin antidiabetic drugs; Z79.84 Long term (current) use of oral hypoglycemic drugs; Z79.899 Other long term (current) drug therapy; Z91.040 Latex allergy status; Z88.2 Allergy status to sulfonamides; Z91.048 Other nonmedicinal substance allergy status; Z11.52 Encounter for screening for COVID-19; Z11.59 Encounter for screening for other viral diseases; Z85.46 Personal history of malignant neoplasm of prostate
CPT/HCPCS: 96376 ×3; 96361; 96374; 99285; 36415; 93005; 80053 ×2; 85652; 84443; 82607; 82746; 84484; 85025 ×2; 85610; 85730; 86140; 80306; 83036; 87636; 71046; 93880; 70496; 70450; 70498; G0378 ×3; C8929; S0138 ×2; Q9957; Q9967; J2470 ×3; 93306

== ENCOUNTER 2024-06-14 19:46 | Emergency (ER) | payer MEDICARE ==
--- NOTE | 2024-06-14 20:45 | ED ---
URI HPI - General Chief Complaint: Upper Respiratory Infection Stated Complaint: Coughing Time Seen by Provider: 06/14/24 20:44 Source: patient, RN notes reviewed Mode of arrival: ambulatory Limitations: no limitations - History of Present Illness Initial Comments: 63-year-old male presented the ER for evaluation of cough, congestion and runny nose. He states he has been feeling this way for the past 2 to 3 days. Patient reports shortness of breath while coughing denies any resting dyspnea or chest discomfort. He denies any abdominal pain, nausea, vomiting, diarrhea, constipation or urinary complaints. Patient is a non-smoker. Patient has no other complaints. Patient's grandson has similar symptoms. - Related Data Home Medications Medication Instructions Recorded Confirmed PARoxetine HCL [Paxil] 40 mg PO DAILY 06/12/16 05/27/24 Pantoprazole Sodium [Protonix] 40 mg PO DAILY 06/12/16 05/27/24 lisinopriL 40 mg PO DAILY 06/12/16 05/27/24 Atorvastatin [Lipitor] 10 mg PO DAILY 02/13/20 05/27/24 Meclizine [Antivert] 25 mg PO TID 02/13/20 05/27/24 Finasteride [Proscar] 5 mg PO DAILY 03/27/20 05/27/24 Tamsulosin [Flomax] 0.4 mg PO DAILY 03/27/20 05/27/24 hydroCHLOROthiazide 25 mg PO DAILY 03/27/20 05/27/24 Aspirin EC [Ecotrin Low Dose] 81 mg PO DAILY 05/27/24 05/27/24 Dulaglutide [Trulicity] 1.5 mg SQ MO 05/27/24 05/27/24 Multivitamins, Thera [Multivitamin 1 tab PO DAILY 05/27/24 05/27/24 (formulary)] amLODIPine [Norvasc] 10 mg PO DAILY 05/27/24 05/27/24 metFORMIN HCL 1,000 mg PO BID 05/27/24 05/27/24 Previous Rx's Medication Instructions Recorded Metoprolol Tartrate [Lopressor] 12.5 mg PO BID #0 02/13/20 Acetaminophen Tab [Tylenol] 650 mg PO Q6HR PRN tab 05/29/24 Allergies Allergy/AdvReac Type Severity Reaction Status Date / Time adhesive Allergy Rash/Hives Verified 06/14/24 20:27 latex Allergy Rash/Hives Verified 06/14/24 20:27 Sulfa (Sulfonamide Allergy Rash/Hives Verified 06/14/24 20:27 Antibiotics) Review of Systems ROS Statement: Those systems with pertinent positive or pertinent negative responses have been documented in the HPI. ROS Other: All systems not noted in ROS Statement are negative. Past Medical History Past Medical History: Diabetes Mellitus, GERD/Reflux, Hyperlipidemia, Hypertension Additional Past Medical History / Comment(s): Dizziness History of Any Multi-Drug Resistant Organisms: None Reported Past Surgical History: Appendectomy Additional Past Surgical History / Comment(s): Vein stripping right leg, hemroidectomy Past Anesthesia/Blood Transfusion Reactions: No Reported Reaction Past Psychological History: No Psychological Hx Reported Smoking Status: Never smoker Past Alcohol Use History: None Reported Past Drug Use History: None Reported - Past Family History Mother History Unknown: Yes Family Medical History: No Reported History Father Family Medical History: Cancer Additional Family Medical History / Comment(s): from Lymphoma in 2011 General Exam Limitations: no limitations General appearance: alert, in no apparent distress ENT exam: Present: normal exam, normal oropharynx, mucous membranes moist, TM's normal bilaterally Neck exam: Present: normal inspection. Absent: tenderness, meningismus, lymphadenopathy Respiratory exam: Present: normal lung sounds bilaterally. Absent: respiratory distress, wheezes, rales, rhonchi, stridor Cardiovascular Exam: Present: regular rate, normal rhythm, normal heart sounds. Absent: systolic murmur, diastolic murmur, rubs, gallop, clicks Neurological exam: Present: alert, oriented X3, CN II-XII intact Skin exam: Present: warm, dry, intact, normal color. Absent: rash Course Vital Signs 06/14/24 06/14/24 20:23 22:51 Temperature 97.9 F 98.2 F Pulse Rate 83 91 Respiratory 15 17 Rate Blood Pressure 135/78 133/79 O2 Sat by Pulse 97 97 Oximetry Medical Decision Making - Medical Decision Making Was pt. sent in by a medical professional or institution (, PA, DRESS DESIGNER, urgent care, hospital, or snf...) When possible be specific @ -No Did you speak to anyone other than the patient for history (EMS, parent, family, police, friend...)? What history was obtained from this source @ -No Did you review nursing and triage notes (agree or disagree)? Why? @ -I reviewed and agree with nursing and triage notes Were old charts reviewed (outside hosp., previous admission, EMS record, old EKG, old radiological studies, urgent care reports/EKG's, snf records)? Report findings @ -No old charts were reviewed Differential Diagnosis (chest pain, altered mental status, abdominal pain women, abdominal pain men, vaginal bleeding, weakness, fever, dyspnea, syncope, headache, dizziness, GI bleed, back pain, seizure, CVA, palpatations, mental health, musculoskeletal)? @ -COVID, RSV, influenza, viral sinusitis, pneumonia, strep pharyngitis, ... this list is not meant to be all-inclusive EKG interpreted by me (3pts min.). @ -None done X-rays interpreted by me (1pt min.). @ -CXR interpreted by me negative for focal consolidations. CT interpreted by me (1pt min.). @ -None done U/S interpreted by me (1pt. min.). @ -None done What testing was considered but not performed or refused? (CT, X-rays, U/S, labs)? Why? @ -None What meds were considered but not given or refused? Why? @ -None Did you discuss the management of the patient with other professionals (professionals i.e. , PA, DRESS DESIGNER, lab, RT, psych nurse, secondary social studies teacher, arborist, teacher, licensed loan officer assistant, case management associate)? Give summary @ -No Was smoking cessation discussed for >3mins.? @ -No Was critical care preformed (if so, how long)? @ -No Were there social determinants of health that impacted care today? How? (Homelessness, low income, unemployed, alcoholism, drug addiction, transportation, low edu. Level, literacy, decrease access to med. care, shelter, rehab)? @ -No Was there de-escalation of care discussed even if they declined (Discuss DNR or withdrawal of care, Hospice)? DNR status @ -No What co-morbidities impacted this encounter? (DM, HTN, Smoking, COPD, CAD, Cancer, CVA, ARF, Chemo, Hep., AIDS, mental health diagnosis, sleep apnea, morbid obesity)? @ -None Was patient admitted / discharged? Hospital course, mention meds given and route, prescriptions, significant lab abnormalities, going to OR and other pertinent info. @ -Discharge. 63-year-old male presented to ER for evaluation of cough and congestion. Upon rooming, history and physical exam completed. Vitals within acceptable limits. Patient in no signs of acute distress nontoxic-appearing. Exam benign. RSV positive. Chest x-ray negative. Patient given Tylenol for symptom control in the ER. Upon reevaluation, patient resting comfortably in exam room no signs of acute distress. Results discussed with patient, all questions answered. Conservative treatment options discussed. Patient is stable for discharge. Strict return parameters discussed. Patient discharged in stable condition with follow-up to PCP. Patient verbally expressed understanding and agreement with care plan. Case discussed with ED attending, Dr. Hall. Undiagnosed new problem with uncertain prognosis? @ -No Drug Therapy requiring intensive monitoring for toxicity (Heparin, Nitro, Insu shira, Cardizem)? @ -No Were any procedures done? @ -No Diagnosis/symptom? @ -RSV/acute viral sinusitis Acute, or Chronic, or Acute on Chronic? @ -Acute Uncomplicated (without systemic symptoms) or Complicated (systemic symptoms)? @ -Uncomplicated Side effects of treatment? @ -No Exacerbation, Progression, or Severe Exacerbation? @ -No Poses a threat to life or bodily function? How? (Chest pain, [place], [place], pneumonia, PE, COPD, DKA, ARF, appy, cholecystitis, CVA, Diverticulitis, Homicidal, Suicidal, threat to staff... and all critical care pts) @ -No - Lab Data Lab Results 06/14/24 Range/Units 21:41 Influenza Type A (PCR) Not Detected (Not Detectd) Influenza Type B (PCR) Not Detected (Not Detectd) RSV (PCR) Detected A (Not Detectd) SARS-CoV-2 (PCR) Not Detected (Not Detectd) - Radiology Data Radiology results: report reviewed, image reviewed Disposition Clinical Impression: RSV (respiratory syncytial virus infection), Acute viral sinusitis Disposition: HOME SELF-CARE Condition: Stable Additional Instructions: I recommend [id number] ibuprofen and Tylenol for symptom control. Follow- up with PCP. Return to the ER for any new or worsening concerns. Is patient prescribed a controlled substance at d/c from ED?: No Referrals: None,Stated [Primary Care Provider] - 1-2 days Forms: Area PCPs Time of Disposition: 22:49
--- NOTE | 2024-06-14 21:37 | XR ---
EXAMINATION TYPE: XR chest 2V DATE OF EXAM: 06/14/2024 9:30 PM COMPARISON: 05/27/2024 CLINICAL INDICATION: Male, 63 years old with history of cough, TECHNIQUE: XR chest 2V view(s) obtained. FINDINGS: The heart size is normal. The pulmonary vasculature is normal. The lungs are clear. Previous posterior infiltrate has resolved IMPRESSION: 1. No acute pulmonary process. [facility], , 06/14/2024 9:35 PM
[2024-06-14] MEDS: ACETAMINOPHEN TAB 325 MG TAB PO STA (21:40)
[2024-06-14 22:53] VITALS: BP 133/79; PULSE 91; RESP 17; TEMP 98.2
== END 2024-06-14 22:53 | disposition home or self-care (01) ==
LOC: EC 19:46
DX: R05.9 Cough, unspecified (principal); B97.4 Respiratory syncytial virus as the cause of diseases classified elsewhere; B97.89 Other viral agents as the cause of diseases classified elsewhere; Z88.2 Allergy status to sulfonamides; Z91.040 Latex allergy status; Z88.8 Allergy status to other drugs, medicaments and biological substances
CPT/HCPCS: 71046; 87636; 99283